=== PATIENT | male | born 1940 | race Caucasian/White ===

== ENCOUNTER 2017-06-03 13:20 | Inpatient (IN) | payer OTHER ==
[2017-06-03] MEDS ORDERED: PANTOPRAZOLE 40 MG INJ ONE (15:48)
[2017-06-03] MEDS ORDERED: ONDANSETRON 4 MG/2 ML VIAL ONE (15:48)
[2017-06-03 16:10] LABS: Potassium 3.2 mEq/L (3.6-5.0)
[2017-06-03 16:16] LABS: Albumin 3.8 g/dL (3.2-5.5); Bilirubin Direct 0.1 mg/dL (0-0.2); Bilirubin Total 0.4 mg/dL (0.3-1.2); Protein, Total 7.7 g/dL (6.0-8.3)
[2017-06-03 16:22] LABS: Absolute Lymphocytes (CBC) 1.6 K/uL (0.7-4.9); Absolute Monocytes 0.7 K/uL (0.1-1.3); Absolute Neutrophil 5.7 K/uL (1.8-8.0); Basophils % 0.4 % (0-1.3); MCH 26.8 pg (27.0-35.0); MCV 82.2 fL (80-100); MPV 8.3 fL (7.6-11.3); Monocytes % 8.5 % (3.3-12.3); RBC Red Blood Cell Count 4.13 M/uL (4.33-5.43)
--- NOTE | 2017-06-03 17:12 | RAD REPORT ---
EXAM DESCRIPTION: CT - Abdomen Pelvis W Contrast - 06/03/2017 4:59 pm CLINICAL HISTORY: Abd pain COMPARISON: CT study April 14, 2017 TECHNIQUE: Biphasic, helical CT imaging of the abdomen and pelvis was performed following 100 ml non -ionic IV contrast. No oral contrast administered. All CT scans are performed using dose optimization technique as appropriate and may include automated exposure control or mA/KV adjustment according to patient size. FINDINGS: No suspicious findings in the lung bases. The liver, spleen, and pancreas show no suspicious findings. Gallbladder is absent. No biliary tree d ilatation. Symmetric renal function is seen with no hydronephrosis or suspicious renal mass. No pyelonephritis o r acute renal finding. No acute bladder finding. No gastric dilatation or small bowel abnormality. Patient has severe nam diverticulosis. There is a t race amount of stranding adjacent to the tortuous ascending colon. This is suspicious for early diver ticulitis. No mass lesion. No free air, free fluid or other inflammatory stranding. No mass or bulky lymphadenopathy. Fat fille d left inguinal hernia present. Postsurgical changes are present from left inguinal hernia pain. No a drenal abnormality. No suspicious bony findings. IMPRESSION: Suspected early diverticulitis in the descending colon right mid abdomen. Extensive severe nam diverticulosis. The remainder the abdomen and pelvis, as detailed above, not substantially different from March.
--- NOTE | 2017-06-03 17:22 | ER ---
Nurse's Notes [facility] Name: Wicho Dudley Age: 76 yrs Sex: Male : 1940 Arrival Date: 06/03/2017 Time: 13:23 Bed 23 Private MD: Sumeet Fierro Diagnosis: Gastrointestinal hemorrhage, unspecified;Diverticulitis of intestine, part unspecified, without perforation or abscess with bleeding Presentation: 06/03 13:40 Presenting complaint: Patient states: Patient was hospitalized in [place] for ae1 diverticulitis, and he has rectal bleeding that started this morning. Transition of care: patient was not received from another setting of care. Onset of symptoms was June 03, 2017 at 06:00. 13:40 Method Of Arrival: Ambulatory ae1 13:45 Acuity: BRENDAN 3 ae1 17:49 Care prior to arrival: None. kr2 Triage Assessment: 13:45 General: Appears in no apparent distress. Behavior is calm, cooperative. Pain: Denies ae1 pain. Respiratory: Airway is patent. Historical: - Allergies: 13:44 No Known Allergies; ae1 - Home Meds: 17:51 Arixtra [Active]; kr2 - PMHx: 13:44 BPH; CVA; Depression; Hypertension; ae1 - PSHx: 13:44 Appendectomy; Cholecystectomy; Hernia repair; Tonsillectomy; ae1 - Immunization history:: Pneumococcal vaccine is up to date, Flu vaccine is up to date. - Social history:: Smoking status: Patient/guardian denies using tobacco. Screenin:19 Abuse screen: Denies threats or abuse. Denies injuries from another. Nutritional kr2 screening: No deficits noted. Tuberculosis screening: No symptoms or risk factors identified. Fall Risk IV access (20 points). Assessment: 16:19 General: Appears in no apparent distress. comfortable, well groomed, well developed, kr2 well nourished, Behavior is calm, cooperative, appropriate for age. Pain: Denies pain. Neuro: Level of Consciousness is awake, alert, obeys commands, Oriented to person, place, time, situation, Appropriate for age. Cardiovascular: Capillary refill < 3 seconds in bilateral fingers Patient's skin is warm and dry. Respiratory: Airway is patent Respiratory effort is even, unlabored, Respiratory pattern is regular, symmetrical, Breath sounds are clear bilaterally. GI: Abdomen is round non-distended, Bowel sounds present X 4 quads. Abd is soft X 4 quads Abdomen is tender to palpation X 4 quads. Reports bloody stool, nausea, vomiting. 16:19 Neuro: Reports dizziness. Cardiovascular: Reports fatigue. : No signs and/or symptoms kr2 were reported regarding the genitourinary system. EENT: Oral mucosa is moist. Derm: Skin is intact, is healthy with good turgor, Skin is pink, warm \T\ dry. Musculoskeletal: Circulation, motion, and sensation intact. 17:30 Reassessment: Patient appears in no apparent distress at this time. Patient and/or kr2 family updated on plan of care and expected duration. Pain level reassessed. Patient is alert, oriented x 3, equal unlabored respirations, skin warm/dry/pink. No episodes of bloody stool since arriving in ER. Patient denies pain at this time. 18:30 Reassessment: Patient appears in no apparent distress at this time. Patient and/or kr2 family updated on plan of care and expected duration. Pain level reassessed. Patient is alert, oriented x 3, equal unlabored respirations, skin warm/dry/pink. Patient denies pain at this time. 19:30 Reassessment: Patient appears in no apparent distress at this time. Patient and/or kr2 family updated on plan of care and expected duration. Pain level reassessed. Patient is alert, oriented x 3, equal unlabored respirations, skin warm/dry/pink. Patient denies pain at this time. 19:49 Reassessment: REPORT CALLED TO CINDI jo Vital Signs: 13:42 BP 123 / 84; Pulse 68; Resp 17; Temp 98(TE); Pulse Ox 98% on R/A; Weight 97.52 kg; ae1 Height 5 ft. 10 in. (177.80 cm); Pain 0/10; 14:59 BP 128 / 89; Pulse 72; Resp 18 S; Pulse Ox 99% on R/A; ae1 16:05 BP 117 / 74; Pulse 64; Resp 17; Pulse Ox 97% on R/A; mh5 16:47 BP 121 / 69; Pulse 63; Resp 19; Pulse Ox 97% on R/A; mh5 17:51 BP 155 / 89; Pulse 65; Resp 20; Pulse Ox 98% on R/A; kr2 18:52 BP 121 / 76; Pulse 67; Resp 17; Pulse Ox 100% on R/A; mh5 20:00 BP 115 / 75; Pulse 65; Resp 18; Pulse Ox 100% ; kr2 13:42 Body Mass Index 30.85 (97.52 kg, 177.80 cm) ae1 ED Course: 13:23 Patient arrived in ED. rg4 13:23 Sumeet Fierro DO is Private Physician. rg4 13:45 Triage completed. ae1 13:46 Arm band placed on right wrist. ae1 15:06 Dor[facility]-C [facility]. kb 15:06 Jose To MD is Attending Physician. kb 15:10 Bailey Gomes, ROMAN is Primary Nurse. kr2 15:19 Radiology exam delayed due to lab results not completed at this time. (BUN/Creatinine). kc3 16:04 Initial lab(s) drawn, by mt, sent to lab. Inserted saline lock: 22 gauge in right mh5 forearm, using aseptic technique. Blood collected. 16:04 Amylase, Serum Sent. 5 16:04 Basic Metabolic Panel Sent. 5 16:04 CBC with Diff Sent. 5 16:04 Creatinine for Radiology Sent. 5 16:04 Hepatic Function Sent. 5 16:05 Lipase Sent. 5 16:20 Patient has correct armband on for positive identification. Placed in gown. Bed in low kr2 position. Call light in reach. Side rails up X2. Adult w/ patient. monitoring analyst on. Pulse ox on. NIBP on. Door closed. Warm blanket given. Head of bed elevated. 16:[address] via stretcher. nj 16:54 CT completed. Patient tolerated procedure well. Patient moved back from CT. nj 16:59 CT Abd/Pelvis - W/Contrast In Process Unspecified. EDMS 17:21 Krystina Smith MD is Hospitalizing Provider. kb 20:01 No provider procedures requiring assistance completed. Patient admitted, IV remains in kr2 place. Administered Medications: 15:55 Drug: Zofran 4 mg Route: IVP; Site: right antecubital; kr2 16:15 Follow up: Response: No adverse reaction; Nausea is decreased kr2 15:55 Drug: ProTONIX 40 mg Route: IVP; Site: right antecubital; kr2 16:15 Follow up: Response: No adverse reaction kr2 17:34 Drug: Potassium Chloride 40 mEq Route: PO; kr2 18:30 Follow up: Response: No adverse reaction kr2 17:34 Drug: Flagyl 500 mg Volume: 100 ml; Route: IVPB; Rate: 200 ml/hr; Infused Over: 30 kr2 mins; Site: right antecubital; 18:29 Follow up: Response: No adverse reaction; IV Status: Completed infusion kr2 18:30 Drug: Cipro 400 mg Volume: 200 ml; Route: IVPB; Infused Over: 60 mins; Site: right kr2 antecubital; 19:58 Follow up: Response: No adverse reaction; IV Status: Completed infusion kr2 Outcome: 17:21 Decision to Hospitalize by Provider. kb 20:01 Admitted to Med/surg accompanied by tech, family with patient, via wheelchair, room kr2 412, with chart. 20:01 Condition: good 20:01 Patient left the ED. kr2 Signatures: Dispatcher [employer] EDMS Dorothea Onofre, TEE-C HTML WEB DEVELOPER-Tanja Ingram, RN RN bb Joselo Monterroso RN RN ae1 Grace Arcos rg4 Chadwick Johansen Maria 5 Bailey Gomes RN RN kr2 Codi Briscoe kc3 Corrections: (The following items were deleted from the chart) 17:48 16:19 GI: Abdomen is round non-distended, Bowel sounds present X 4 quads. Abd is soft X kr2 4 quads Abdomen is tender to palpation X 4 quads. kr2
--- NOTE | 2017-06-03 17:22 | EDPHYS ---
Physician Documentation [facility] Name: Wicho Dudley Age: 76 yrs Sex: Male : 1940 Arrival Date: 06/03/2017 Time: 13:23 Bed 23 Private MD: Sumeet Fierro ED Physician Jose To HPI: 06/03 15:18 This 76 yrs old Male presents to ER via Ambulatory with complaints of Rectal kb Bleeding. 15:18 The patient presents to the emergency department with rectal bleeding, a small amount, kb bright red blood with bowel movement, in a single episode. Onset: The symptoms/episode began/occurred this morning. Abdominal pain: none is appreciated. Modifying factors: The symptoms are alleviated by nothing, the symptoms are aggravated by nothing. Associated signs and symptoms: The patient has no apparent associated signs or symptoms. Severity of symptoms: At their worst the symptoms were mild moderate in the emergency department the symptoms are unchanged. The patient has experienced a previous episode, approximately 2 months ago. The patient has not recently seen a physician. Historical: - Allergies: 13:44 No Known Allergies; ae1 - Home Meds: 17:51 Arixtra [Active]; kr2 - PMHx: 13:44 BPH; CVA; Depression; Hypertension; ae1 - PSHx: 13:44 Appendectomy; Cholecystectomy; Hernia repair; Tonsillectomy; ae1 - Immunization history:: Pneumococcal vaccine is up to date, Flu vaccine is up to date. - Social history:: Smoking status: Patient/guardian denies using tobacco. ROS: 15:17 Constitutional: Negative for fever, chills, and weight loss, Cardiovascular: Negative kb for chest pain, palpitations, and edema, Respiratory: Negative for shortness of breath, cough, wheezing, and pleuritic chest pain, Back: Negative for injury and pain, : Negative for injury, bleeding, discharge, and swelling, MS/Extremity: Negative for injury and deformity, Skin: Negative for injury, rash, and discoloration, Neuro: Negative for headache, weakness, numbness, tingling, and seizure. 15:17 Abdomen/GI: Positive for nausea, vomiting, rectal bleeding, Negative for abdominal pain, diarrhea, constipation, abdominal cramps, abdominal distension, anorexia. Exam: 15:17 Constitutional: This is a well developed, well nourished patient who is awake, alert, kb and in no acute distress. Head/Face: Normocephalic, atraumatic. Chest/axilla: Normal chest wall appearance and motion. Nontender with no deformity. No lesions are appreciated. Cardiovascular: Regular rate and rhythm with a normal S1 and S2. No gallops, murmurs, or rubs. Normal PMI, no JVD. No pulse deficits. Respiratory: Lungs have equal breath sounds bilaterally, clear to auscultation and percussion. No rales, rhonchi or wheezes noted. No increased work of breathing, no retractions or nasal flaring. Skin: Warm, dry with normal turgor. Normal color with no rashes, no lesions, and no evidence of cellulitis. MS/ Extremity: Pulses equal, no cyanosis. Neurovascular intact. Full, normal range of motion. Neuro: Awake and alert, GCS 15, oriented to person, place, time, and situation. Cranial nerves II-XII grossly intact. Motor strength 5/5 in all extremities. Sensory grossly intact. Cerebellar exam normal. Normal gait. 15:17 Abdomen/GI: Inspection: distension, Bowel sounds: normal, in all quadrants, Palpation: abdomen is soft and non-tender, in all quadrants. 18:01 Abdomen/GI: Rectal exam: rectal tone normal, Stool: grossly bloody, guaiac positive, kb tenderness, the exam is chaperoned by an rv technician. Vital Signs: 13:42 BP 123 / 84; Pulse 68; Resp 17; Temp 98(TE); Pulse Ox 98% on R/A; Weight 97.52 kg; ae1 Height 5 ft. 10 in. (177.80 cm); Pain 0/10; 14:59 BP 128 / 89; Pulse 72; Resp 18 S; Pulse Ox 99% on R/A; ae1 16:05 BP 117 / 74; Pulse 64; Resp 17; Pulse Ox 97% on R/A; mh5 16:47 BP 121 / 69; Pulse 63; Resp 19; Pulse Ox 97% on R/A; mh5 17:51 BP 155 / 89; Pulse 65; Resp 20; Pulse Ox 98% on R/A; kr2 18:52 BP 121 / 76; Pulse 67; Resp 17; Pulse Ox 100% on R/A; mh5 20:00 BP 115 / 75; Pulse 65; Resp 18; Pulse Ox 100% ; kr2 13:42 Body Mass Index 30.85 (97.52 kg, 177.80 cm) ae1 MDM: 15:10 Patient medically screened. kb 15:18 Data reviewed: vital signs, nurses notes. Data interpreted: Pulse oximetry: on room air kb is 99 %. Interpretation: normal. 17:20 Counseling: I had a detailed discussion with the patient and/or guardian regarding: the kb historical points, exam findings, and any diagnostic results supporting the discharge/admit diagnosis, lab results, radiology results, the need for further work-up and treatment in the hospital. Physician consultation: Krystina Smith MD was contacted at 17:20, regarding admission, to the telemetry unit. patient's condition, and will see patient in ED, shortly. 06/03 15:16 Order name: Amylase, Serum; Complete Time: 16:24 kb 06/03 15:16 Order name: Basic Metabolic Panel; Complete Time: 16:24 kb 06/03 15:16 Order name: CBC with Diff; Complete Time: 16:51 kb 06/03 15:16 Order name: Creatinine for Radiology; Complete Time: 16:13 kb 06/03 15:16 Order name: Hepatic Function; Complete Time: 16:24 kb 06/03 15:16 Order name: Lipase; Complete Time: 16:24 kb 06/03 15:16 Order name: IV Saline Lock; Complete Time: 15:55 kb 06/03 15:16 Order name: CT Abd/Pelvis - W/Contrast; Complete Time: 17:17 kb 06/03 18:02 Order name: [place] kb 06/03 15:16 Order name: Labs collected and sent; Complete Time: 15:55 kb Administered Medications: 15:55 Drug: Zofran 4 mg Route: IVP; Site: right antecubital; kr2 16:15 Follow up: Response: No adverse reaction; Nausea is decreased kr2 15:55 Drug: ProTONIX 40 mg Route: IVP; Site: right antecubital; kr2 16:15 Follow up: Response: No adverse reaction kr2 17:34 Drug: Potassium Chloride 40 mEq Route: PO; kr2 18:30 Follow up: Response: No adverse reaction kr2 17:34 Drug: Flagyl 500 mg Volume: 100 ml; Route: IVPB; Rate: 200 ml/hr; Infused Over: 30 kr2 mins; Site: right antecubital; 18:29 Follow up: Response: No adverse reaction; IV Status: Completed infusion kr2 18:30 Drug: Cipro 400 mg Volume: 200 ml; Route: IVPB; Infused Over: 60 mins; Site: right kr2 antecubital; 19:58 Follow up: Response: No adverse reaction; IV Status: Completed infusion kr2 Disposition: 06/03/17 17:21 Hospitalization ordered by Krystina Smith for Inpatient Admission. Preliminary diagnosis are Gastrointestinal hemorrhage, unspecified, Diverticulitis of intestine, part unspecified, without perforation or abscess with bleeding. - Bed requested for Telemetry/MedSurg (Inpatient). - Status is Inpatient Admission. kr2 - Condition is Stable. - Problem is new. - Symptoms are unchanged. UTI on Admission? No Addendum: 06/07/2017 06:07 Co-signature as Attending Physician, Jose To MD Available for consultation at p s1 all times. . Signatures: Dispatcher [employer] EDMS Dorothea Onofre, OUTSIDE MAINTENANCE WORKER-C OUTSIDE MAINTENANCE WORKER-Claire Hargrove Andrea RN RN ae1 Bailey Gomes RN RN kr2 Jose To MD MD ps1
[2017-06-03] MEDS ORDERED: METRONIDAZOLE 500mg IVPB 500 MG/100 ML BAG IV ONE (17:24)
[2017-06-03] MEDS ORDERED: CIPROFLOXACIN 400mg IV 400 MG/200 ML BAG IV ONE (17:24)
[2017-06-03] MEDS ORDERED: POTASSIUM CL SA 10 MEQ TAB PO ONE (17:25)
[2017-06-03] MEDS ORDERED: ONDANSETRON 4 MG/2 ML VIAL IV PRN (17:28)
[2017-06-03] MEDS ORDERED: ACETAMINOPHEN 500 MG TAB PO PRN (17:28)
[2017-06-03] MEDS ORDERED: MORPHINE 4 MG/ML SYR IV PRN (17:28)
[2017-06-03] MEDS ORDERED: NA CHLORIDE 0.9% 250 ML IV SCH (18:00)
[2017-06-03 20:46] LABS: Hematocrit 34.6 % (39.6-49.0)
[2017-06-03] MEDS: PANTOPRAZOLE 40 MG INJ IVP SCH (21:00)
[2017-06-03] MEDS: D5 0.45 NS 1,000 ML IV SCH (21:11)
[2017-06-03 23:18] VITALS: BMI 30.8
[2017-06-04] MEDS: METRONIDAZOLE 500mg IVPB 500 MG/100 ML BAG IV SCH ×3 (00:58→17:00)
[2017-06-04 02:53] LABS: Hematocrit 30.8 % (39.6-49.0)
--- NOTE | 2017-06-04 04:42 | HP ---
Date of Admission: 06/03/2017 Code Status: Full. Chief Complaint: GI bleed. Consultants: Cuba Woodward M.D. with GI. Primary Care Physician: Dr. Fierro. History Of Present Illness: The patient is a 76-year-old male with past medical history of CVA with left-sided residual weakness, hypertension, abdominal aortic aneurysm, diverticulosis, who was in his usual state of health until day of admission when the patient had sudden onset of bright red blood per rectum. The patient recently was admitted to the hospital in March for similar symptoms. The patient was incidentally scheduled to have a colonoscopy on 06/05/2017; however, due to the GI bleed was instructed to proceed to the ER. The patient is on Arixtra for his history of CVA. The patient otherwise states that he is not on a stool softener. The patient denies any lightheadedness, dizziness, falls. The patient's symptoms are constant, moderate, progressively worsening. The patient came in. His workup revealed hypokalemia with a potassium of 3.2. His H and H were 11.[address] scan of the abdomen was done, which showed diverticulitis. The patient was started on some IV antibiotics, IV fluids and referred for admission. When seen in the ER , the patient was awake, alert, oriented x3, in some mild distress. Past Medical History: History of CVA with left-sided residual weakness, hypertension, history of AAA, diverticulosis, and history of diverticulitis. Past Surgical History: Cholecystectomy, left cataract removal, hernia repair on the right inguinal side. Allergies: NO KNOWN DRUG ALLERGIES. Medications: Reviewed. Social History: The patient denies any tobacco use, alcohol use, or illicit drug use. The patient is , has a son, mainly independent in his activities of daily living. Family History: Father had an HI, who at age of 69. Both brothers also of heart attack in their 60s. Review of Systems: An 11-point system reviewed, negative except as per HPI. Physical Examination: Vital Signs: Blood pressure 123/84, pulse 68, respirations 17, temperature 98, pulse ox 98% on room air. General: Awake, alert, oriented x3, in some mild distress. Elderly male. HEENT: Normocephalic, atraumatic. PERRLA. EOMI. Dry mucous membranes. Oropharynx is clear. Normal dentition. Conjunctivae are anicteric. Neck: Supple. No JVD. Trachea midline. CV: S1, S2. Regular rate and rhythm. No murmurs. Peripheral pulses are present bilaterally. Respiratory: Clear to auscultation bilaterally. No wheezing, stridor, or use of accessory muscles. Gastrointestinal: Abdomen is soft, distended. Bowel sounds are positive. Mild tenderness to palpation. No guarding or rigidity. Extremities: No clubbing, cyanosis, or edema. No calf tenderness. Neuro: Cranial nerves 2 through 12 intact grossly. The patient has some left- sided residual weakness. Speech is normal. Sensation intact to light touch. Skin: No rashes. Normal skin turgor. The patient does have very dry skin with some exfoliation on his lower extremities. Does have a dry venous ulcer on the right ankle. Psych: Mood is okay. Affect is full. Insight and judgment are good. Laboratory Data: Sodium 140, potassium 3.2, chloride 104, CO2 31, BUN 21, creatinine 1.10, glucose 113, calcium 9.2, amylase 51, lipase 18. WBC 8.8, H and H 11.1 and 34, platelets 304, neutrophils 65%. CT scan of the abdomen and pelvis shows suspect early diverticulitis in the descending colon, right mid abdomen, extensive severe diverticulosis. Remainder of the abdomen and pelvis as detailed above, not substantially different from March. Assessment And Plan: A 76-year-old male with, 1. Gastrointestinal bleed secondary to diverticulitis. We will monitor serial H and H. Dr. Woodward has been consulted. Hold blood thinners. We will continue on IV PPI and IV fluids. Clear liquids for now. 2. Acute diverticulitis. We will continue on Cipro and Flagyl. GI has been consulted. 3. Obesity. 4. Essential hypertension. Hold blood pressure medications for now. We will continue to monitor closely. 5. History of cerebrovascular accident with left-sided weakness, stable. We will hold Arixtra due to GI bleed. 6. History of abdominal aortic aneurysm. CT scan did not comment on size of AAA, previously was 3.4 cm. The patient follows with Cardiology on a regular basis for monitoring. 7. Hypokalemia. We will replace and monitor. 8. We will admit to Med-Surg, place as inpatient with remote cardiac telemetry. No living will or medical power professional builder /PRETTY Voice ID: [id number] ADRYAN
[2017-06-04 04:58] LABS: Absolute Lymphocytes (CBC) 1.7 K/uL (0.7-4.9); Absolute Monocytes 0.7 K/uL (0.1-1.3); Absolute Neutrophil 4.4 K/uL (1.8-8.0); Basophils % 0.5 % (0-1.3); Eosinophils % 9.6 % (0-4.4); Hematocrit 31.6 % (39.6-49.0); Lymphocytes % 21.9 % (15.3-44.8); MCH 27.5 pg (27.0-35.0); MCV 81.8 fL (80-100); MPV 8.3 fL (7.6-11.3); Monocytes % 9.4 % (3.3-12.3); RBC Red Blood Cell Count 3.87 M/uL (4.33-5.43)
[2017-06-04 05:07] LABS: Potassium 3.7 mEq/L (3.6-5.0)
[2017-06-04] MEDS: D5 0.45 NS 1,000 ML IV SCH ×2 (05:10→14:00)
[2017-06-04] MEDS ORDERED: CIPROFLOXACIN 400mg IV 400 MG/200 ML BAG IV SCH (09:00)
[2017-06-04] MEDS ORDERED: SODIUM CHLORIDE 0.9% 10ML INJ IV SCH (09:00)
[2017-06-04] MEDS: PANTOPRAZOLE 40 MG INJ IVP SCH (09:32)
[2017-06-04 10:45] VITALS: O2SAT 97
[2017-06-04] MEDS ORDERED: POTASSIUM CL SA 10 MEQ TAB PO ONE (12:00)
[2017-06-04 17:02] VITALS: BP 112/66; TEMP 97.6
--- NOTE | 2017-06-04 18:34 | CON ---
Date of Consultation: 06/04/2017 Reason For Consultation: GI bleeding. History Of Present Illness: The patient is a 76-year-old gentleman with past history of CVA. He has been on anti-platelet medication as a result of that. He cannot apparently stop this. He was suppo sed to have a colonoscopy for past GI bleeding, however, again presented with bright red blood. CT s can shows that he might have left-sided diverticulitis. The patient denies any abdominal pain. Singh es any hematemesis, melena, or hematochezia. Since coming to the hospital, his bleeding has stopped. Denies any weakness, dizziness, eager to go home. Past Medical History, Past Surgical History, Family History, Social History, Psychiatric History: Un changed. Review of Systems: Other than above unchanged. Physical Examination: General: Elderly male, at this time. No other acute distress noted. Hemodynamic respiratory profil e within normal range. HEENT: Atraumatic, normocephalic. Hemodynamic respiratory profile within normal range. Anicteric. Neck: Supple. No lymphadenopathy. Trachea central in position. Chest: Clear to auscultation and percussion. Cardiovascular: Normal S1, S2. No S3, no S4. Abdomen: Soft, nontender, nondistended. Excellent bowel sounds present in all quadrants. No hepato megaly. No splenomegaly. Neurologic: Alert and oriented x3. Intact memory, mentation, and judgment. Can move all parts of e xtremities without any other problem. No asterixis. No flapping tremor. Diagnostic Data: Reviewed and analyzed. CT scan as above. Hemoglobin and hematocrit 11/34 respecti vely. Impression, Plan, Recommendations: Mr. Dudley is a 76-year-old gentleman with recurrent gastrointes tinal bleeding, probably diverticular bleeding. However diverticulitis is also possibility, treat it with antibiotic. He is eager to go home if otherwise stable. Since his bleeding is stopped barring other situation, further treatment could be done on an outpatient basis. However I have stated to t he patient that if he has recurrent bleeding, he is to stay in the hospital. Again after the course of antibiotic, outpatient colonoscopy will be arranged. I have had a long discussion with the patien t regarding the indications, contraindications, possible complications, alternatives, he has good und erstanding, he is agreeable. NMM/MODL Voice ID: [id number] Report ID: [id number]
--- NOTE | 2017-06-04 21:49 | PN ---
Date of Progress Note: 06/04/2017 Subjective: The patient is seen and examined, chart reviewed, and case discussed with RN and GI. Th e patient is doing well. Denies any further bleeding overnight. Review of Systems: Negative except as above. Medications: Reviewed. Physical Examination: Vital Signs: Temperature 97.8, heart rate 56, blood pressure 111/67, respirations 18, and O2 of 91% on room air. General: Awake, alert, and oriented x3. No acute distress. Elderly male, somewhat ill-appearing, o bese, BMI 30. CV: S1, S2. No murmurs. Peripheral pulses present. Regular rate and rhythm. Respiratory: Moving air well bilaterally. No wheezing. Abdomen: Soft, nontender, nondistended. Positive bowel sounds. Extremities: No clubbing or cyanosis. The patient does have some trace peripheral edema. Neurologic: Nonfocal. Skin: The patient has a healed venous ulcer on the lower extremity. Laboratory Data: Sodium 140, potassium 3.7, chloride 103, CO2 of 32, BUN 18, creatinine 1.06, glucos e 120, and calcium 8.7. WBC 7.6, H and H 10.6 and 31.6, platelets 268, and neutrophils 58%. Stool o ccult blood is positive. Assessment And Plan: A 76-year-old male with; 1.Gastrointestinal bleed secondary to diverticulitis. We will continue to monitor H and H. It has been stable. Hold blood thinners. Continue IV fluids. GI has been consulted. 2.Acute diverticulitis. Continue Cipro, Flagyl, and clear liquids. 3.Obesity. Body mass index of 30. 4.Essential hypertension. Resume home medications as appropriate. 5.History of cerebrovascular accident with left-sided weakness. We will hold Arixtra due to gastroi ntestinal bleed. 6.History of abdominal aortic aneurysm. The patient will need repeat imaging in 4 to 6 months. Fol lows up with Cardiology as an outpatient. 7.Hypokalemia, replaced. We will continue to monitor. 8.Gastrointestinal and deep venous thrombosis prophylaxis with PPI and SCDs. Plan to follow up with GI recommendations. /PRETTY Voice ID: [id number] Report ID: [id number]
[2017-06-05] MEDS ORDERED: FINASTERIDE 5 MG TAB PO SCH (09:00)
[2017-06-05] MEDS ORDERED: CHLORTHALIDONE 25 MG TAB PO SCH (09:00)
--- NOTE | 2017-06-06 12:36 | DS ---
Date of Discharge: 06/04/2017 Family Life Counselor: Dr. Guy with GI. Admitting Diagnoses: 1.Acute diverticulitis. 2.Gastrointestinal bleed. 3.Obesity. 4.History of hypertension. 5.History of cerebrovascular accident with left-sided weakness. 6.History of abdominal aortic aneurysm. 7.Hypokalemia. Discharge Diagnoses: 1.Acute diverticulitis, improved with antibiotics. 2.Gastrointestinal bleed, improved, likely secondary to diverticulitis and in the context of anticoa gulation with Arixtra. 3.History of cerebrovascular accident with left-sided weakness. The patient has been told by his ne urologist in [place] that is "that is the only thing keeping him alive." The patient is reluctant to withhold his Arixtra. He understands that there is a risk of recurrent bleeding with Arixtra. He i s instructed to follow up with his neurologist to re-evaluate anticoagulation. 4.Essential hypertension, stable. 5.Obesity, BMI 30. 6.History of abdominal aortic aneurysm. Last known measurement is 3.4 cm. The patient follows up w [facility] on a regular basis for continued monitoring. 7.Hypokalemia, replaced and corrected. Hospital Course: The patient is a 76-year-old male who was admitted to the hospital with GI bleed se condary to diverticulitis. The patient was started on IV fluids. Kept on a clear liquid diet, and I V antibiotics were initiated. The patient's hemoglobin was monitored and remained stable, did drop f rom 11.1-10.6. He had no further bleeding. He was able to tolerate his diet. GI was consulted, Dr. Guy, who had been planning on doing a colonoscopy on him this week. However, will be delayed for t he next couple weeks once his inflammation improves. The patient did have some hypokalemia, which wa s corrected. His white count remained normal. He was not septic. His vital signs were stable. The patient was seen by Dr. Guy to have followup as an outpatient for a colonoscopy. The patient was t hen cleared for discharge and was sent home in a stable condition instructed to return to the ER if a ny bleeding recurs. Followup: Follow up with primary care physician in 2-3 days. Follow up with GI, Dr. Guy in 2 weeks for colonoscopy. Follow up with neurologist in [place] in 2 weeks regarding discussion for anticoag ulation in context of recurrent GI bleed. Diet: Heart healthy. Activity: Fall precautions. Medications: As per medication reconciliation list. Finish off the course of Cipro and Flagyl. Total time spent discharging patient was 37 minutes. For physical exam findings, please see the progress note dictated on the day of discharge. /PRETTY Voice ID: [id number] Report ID: [id number]
[2017-06-07] MEDS ORDERED: VENLAFAXINE HCL XR 37.5MG CAP PO SCH (09:00)
== END 2017-06-04 19:04 | disposition home or self-care (01) | DRG 378 ==
LOC: ER 13:20 → ERHOLD 17:22 → 4TH 19:13
PROVIDERS: ADMIT Family Medicine; ATTEND Family Medicine
DX: K57.33 Diverticulitis of large intestine without perforation or abscess with bleeding (principal); I69.354 Hemiplegia and hemiparesis following cerebral infarction affecting left non-dominant side; I10 Essential (primary) hypertension; E87.6 Hypokalemia; Z86.79 Personal history of other diseases of the circulatory system; E66.9 Obesity, unspecified; Z68.30 Body mass index [BMI] 30.0-30.9, adult
CPT/HCPCS: 36415; 74177; 80048; 80076; 82150; 82272; 83690; 85014; 85018; 85025; 86850; 86900; 86901; 94760; 96365; 96367; 96375; 99285; C9113; J0744; J2405; Q9967

== ENCOUNTER 2018-07-14 12:13 | Inpatient (IN) | payer OTHER ==
--- OUTSIDE RECORDS SUMMARY | 2018-07-14 12:25 | XMS REPORT | Continuity of Care Document ---
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 - bleed [facility] [place] Gastrointestinal Active Finding 06/05/[address] [facility] - hemorrhage [facility] [place] Anemia Active Finding 06/05/[address] [facility] - [facility] [place] Hematochezia Active Finding 06/05/[address] [facility] - [facility] [place] CVA Active [address] STROKE Active [address], Rehabilitation ACUTE CVA(NEURO IM Active [facility] 08) 014 [facility] Stroke Resolved Problem 05/14/[address] Hypertension Resolved Problem 05/14/2018 [facility] Migraine Resolved Problem 05/14/2018 [facility] PVD (<span Resolved Problem 05/14/2018 [place] ID="[id number]">[facility] onfirmed</span>) Final: 03/16/2014 [facility] Depression Resolved Problem 05/14/2018 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 Chronic kidney 05/14/2018 [facility] disease, stage 3 Medical Center Obesity, 05/14/2018 [facility] unspecified Medical Center Benign prostatic 05/14/2018 [facility] hyperplasia [facility] without lower urinary tract symptoms Personal history 05/14/2018 [facility] [place] [facility] pulmonary [facility] embolism Hypertensive 05/14/2018 [facility] chronic kidney [facility] disease with stage 1 through stage 4 chronic kidney disease, or unspecified chronic kidney 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 05/14/2018 [facility] anticoagulants Medical Center Body mass index 05/14/2018 [facility] 33.0-33.9, adult Medical Center Coma scale, best 05/14/2018 [facility] motor response, [facility] obeys commands, at arrival to emergency department Coma scale, eyes 05/14/2018 [facility] open, spontaneous, Medical Center at arrival to emergency department Coma scale, best 05/14/2018 [facility] verbal response, [facility] oriented, at arrival to emergency department AAA Active Finding 06/05/[address] [facility] [place] Acute GI bleeding Resolved Finding 06/05/[address] [facility] [place] HTN Active Finding 06/05/[address] [facility] [place] CVA Active Finding 06/05/[address] [facility] [place] ADMINISTRTVE Active [facility] CVA Active Rehabilitation, [facility] CEREB INFRC D/T Active [facility] UNSP OCCLS OR Medical Center STENOS OF Medications Medication Details Route Status Patient Ordering Order Source Instructions Provider Date clopidogrel 75 75 mg=1 tab, PO, Active [facility] mg oral tablet Daily, # 30 tab, 2017 Medical 3 Refill(s), Center Pharmacy: [facility] 482 topiramate 25 25 mg=1 tab, PO, Active [facility] mg oral tablet Daily, # 30 tab, 2017 Medical 2 Refill(s), Center Pharmacy: [facility] 482 topiramate 25 mg, 1 tab, Inactive [facility] Route: PO, Drug 2017 Medical form: TAB, Center Daily, Dosing Weight 104.545, kg, Start date: 10/25/17 9:00:00 CDT, Duration: 30 day, Stop date: 11/23/17 9:00:00 CDTNotes: (Same As: Topamax) "Do Not Crush" Plavix 75 mg, Route: No Longer Maria Alejandra PO, Drug form: Active 2018 Medical TAB, Daily, Center Dosing Weight 104.545, kg, Start date: 10/25/17 9:00:00 CDT, Duration: 30 day, Stop date: 11/23/17 9:00:00 CDT Valproic Acid 500 mg, 5 mL, Inactive [place] 100 MG/ML Route: IVPB, 2018 Medical Injectable ONCE, Dosing Center Solution Weight 104.545, kg, Start date: 10/24/17 15:46:00 CDT, Stop date: 10/24/17 15:46:00 CDTNotes: Dilute in at least 50ml D5W or NS. Infusion rate=20 mg/min (Same As: Depacon) Magnesium 2 gm, 50 mL, Inactive [place] Sulfate Route: IVPB, 2017 Medical Drug form: INJ, Center ONCE, Dosing Weight 104.545, kg, Total dose=2 gm, Start date: 10/24/17 15:46:00 CDT, Stop date: 10/24/17 15:46:00 CDTNotes: WASTE: F/P - Sink; E - Municipal Trash Bin NS (Bolus) IV 500 mL, 500 Inactive [place] ml/hr, Infuse 2018 Medical Over: 1 hr, Center Route: IV, 500, Drug form: INJ, ONCE, Priority: STAT, Dosing Weight 104.545 kg, Start date: 10/24/17 15:46:00 CDT, Stop date: 10/24/17 15:46:00 CDT Plavix 75 mg, 1 tab, No Longer Maria Alejandra Route: PO, Drug Active 2017 Medical form: TAB, Center Daily, Dosing Weight 104.545, kg, Priority: NOW, Start date: 10/24/17 14:40:00 CDT, Duration: 30 day, Stop date: 11/23/17 9:00:00 CDTNotes: (Same As: Plavix) Saline Flush 10 ml, Route: No Longer [place] 0.9% IVP, Drug Form: Active 2018 Medical INJ, Dosing Center Weight 104.545, kg, Q12H, Start date: 10/24/17 9:00:00 CDT, Duration: 30 day, Stop date: 11/22/17 21:00:00 CDTNotes: (Same as: BD Posiflush) Docusate 100 mg, 1 cap, No Longer [place] Route: PO, Drug Active 2018 Medical form: CAP, Q12H, Center Dosing Weight 104.545, kg, Start date: 10/24/17 9:00:00 CDT, Duration: 30 day, Stop date: 11/22/17 21:00:00 CDTNotes: (Same as: Colace) (Do Not Crush) Potassium 40 mEq, 30 mL, Inactive [place] Chloride 1.33 Route: PO, Drug 2018 Medical MEQ/ML Oral form: LIQ, Center Solution Daily, Dosing Weight 104.545, kg, Start date: 10/24/17 9:00:00 CDT, Duration: 30 day, Stop date: 11/22/17 9:00:00 CDT fondaparinux 7.5 mg, 0.6 mL, No Longer [place] Route: SUB-Q, Active 2017 Medical Drug form: SOLN, Center Daily, Dosing Weight 104.545, kg, Start date: 10/24/17 9:00:00 CDT, Duration: 30 day, Stop date: 11/22/17 9:00:00 CDTNotes: (Same as Arixtra) Passthrough med Spironolactone 25 mg, 1 tab, No Longer [place] Route: PO, Drug Active 2018 Medical form: TAB, Center Daily, Dosing Weight 104.545, kg, Start date: 10/24/17 9:00:00 CDT, Duration: 30 day, Stop date: 11/22/17 9:00:00 CDTNotes: (Same As: Aldactone) venlafaxine 37.5 mg, 1 cap, Inactive [place] Route: PO, Drug 2018 Medical form: ERCAP, Center Every Other Day, Dosing Weight 104.545, kg, Start date: 10/24/17 9:00:00 CDT, Duration: 30 day, Stop date: 11/21/17 9:00:00 CDTNotes: Do not open, crush, or chew. (Same As: Effexor XR) Finasteride 5 mg, 1 tab, No Longer [place] Route: PO, Drug Active 2018 Medical form: TAB, Center Daily, Dosing Weight 104.545, kg, Start date: 10/24/17 9:00:00 CDT, Duration: 30 day, Stop date: 11/22/17 9:00:00 CDTNotes: (Same as: Proscar) "Do Not Crush" Women of childbearing age should not touch or handle broken tablets Potassium 40 mEq, 30 mL, Inactive [place] Chloride 1.33 Route: PO, Drug 2018 Medical MEQ/ML Oral form: LIQ, ONCE, Center Solution Dosing Weight 104.545, kg, Start date: 10/24/17 8:41:00 CDT, Stop date: 10/24/17 8:41:00 CDTNotes: (Same as: Potassium Chloride) heparin 5,000 unit, 1 Inactive [place] mL, Route: 2018 Medical SUB-Q, Drug Center form: INJ, Q8H, Dosing Weight 104.545, kg, (For patients weighing Notes: porcine heparin tramadol 50 mg=1 tab, PO, Active [place] hydrochloride Q8H, PRN Pain, # 2018 Medical 50 MG Oral 60 tab, 0 Center Tablet Refill(s) Chlorthalidone 25 mg=1 tab, PO, Active [place] 25 MG Oral Daily, # 90 tab, 2018 Medical Tablet 1 Refill(s) Center finasteride 5 5 mg=1 tab, PO, Active [place] mg oral tablet Daily, # 90 tab, 2018 Medical 1 Refill(s) Center benzonatate 100 100 mg=1 cap, Active [place] mg oral capsule PO, TID, PRN 2018 Medical cough, do not Center crush or chew, # 30 cap, 0 Refill(s) fondaparinux 7.5 mg=0.6 ml, Active [place] 7.5 mg/0.6 mL SUB-Q, Daily, # 2018 Medical subcutaneous 3 ml, 0 Center solution Refill(s) venlafaxine 37.5 mg=1 cap, No Longer [facility] 37.5 mg oral PO, Daily, # 90 Active 2018 Medical capsule, cap, 0 Refill(s) [place] extended release spironolactone 25 mg=1 tab, PO, Active [place] 25 mg oral Daily, # 90 tab, 2018 Medical tablet 1 Refill(s) Center Zofran 4 mg, 2 mL, Inactive [place] Route: IVP, Drug 2018 Medical form: INJ, ONCE, Center Dosing Weight 104.545, kg, Priority: STAT, Start date: 10/24/17 3:10:00 CDT, Stop date: 10/24/17 3:10:00 CDTNotes: (Same as: Zofran) MEDICATION WASTE Product Size: 4 mg Product Wasted: ___ mg Saline Flush 10 ml, Route: No Longer [place] 0.9% IVP, Drug Form: Active 2018 Medical INJ, Dosing Center Weight 104.545, kg, PRN, PRN Line Flush, Start date: 10/24/17 3:01:00 CDT, Duration: 30 day, Stop date: 11/23/17 3:00:00 CDTNotes: (Same as: BD Posiflush) Tylenol 975 mg, 3 tab, Inactive [place] Route: PO, Drug 2017 Medical form: TAB, ONCE, Center Dosing Weight 104.545, kg, Priority: STAT, Start date: 10/23/17 19:49:00 CDT, Stop date: 10/23/17 19:49:00 CDTNotes: Do not exceed 4 gm/day. (Same as: Tylenol) Benadryl 25 mg, Route: Inactive [facility] IVP, ONCE, 2018 Medical Dosing Weight Center 104.545, kg, Priority: STAT, Start date: 10/23/17 17:42:00 CDT, Stop date: 10/23/17 17:42:00 CDT Reglan 10 mg, Route: Inactive [facility] IVP, Drug form: 2018 Medical INJ, ONCE, Center Dosing Weight 104.545, kg, Priority: STAT, Start date: 10/23/17 17:42:00 CDT, Stop date: 10/23/17 17:42:00 CDT Ciprofloxacin TWICE DAILY Active [facility] [place] Metronidazole Q8H Active [facility] St[facility] 2018 [facility] [place] Fondaparinux DAILY Active St[facility] Sodium 2018 [facility] [place] Venlafaxine Hcl As Directed Active [facility] St. *Xr* 2018 [facility] [place] Fondaparinux DAILY Active [facility] St[facility] Sodium 2018 [facility] [place] Chlorthalidone DAILY Active [facility] St[facility] 2017 [facility] [place] Finasteride DAILY Active [facility] St. 2018 [facility] [place] rosuvastatin 40 40 mg=1 tab, PO, Active [place] mg oral tablet Bedtime, # 90 2015 Medical tab, 0 Refill(s) Center fondaparinux 7.5 mg=0.6 ml, Active [place] 7.5 mg/0.6 mL SUB-Q, Daily, # 2015 Medical subcutaneous 18 mL, 1 Center solution Refill(s) venlafaxine 37.5 mg=1 cap, Active [place] 37.5 mg oral PO, Daily, # 30 2015 Medical capsule, cap, 0 Refill(s) Center extended release 0.6 ML 7.5 mg=0.6 ml, Active [facility] Fondaparinux SUB-Q, Daily, # 2015 Medical sodium 12.5 54 mL, 1 Center MG/ML Prefilled Refill(s) Syringe [Arixtra] Arixtra 7.5 mg, 0.6 mL, Inactive [facility] Route: SUB-Q, 2014 Medical Drug form: SOLN, [place] Q24H, Dosing Weight 104.545, kg, Start date: 03/14/14 9:13:00, Duration: 30 day, Stop date: 04/12/14 9:13:00Notes: (Same as Arixtra) Non-Formulary Drug Passthrough med venlafaxine 37.5 mg, 1 cap, Inactive [facility] Route: PO, Drug 2014 Medical form: ERCAP, Center Daily, Dosing Weight 104.545, kg, Start date: 03/14/14 9:00:00, Duration: 30 day, Stop date: 04/12/14 9:00:00Notes: Do not open, crush, or chew. (Same As: Effexor XR) Neutra-Phos 2 pkt, Route: Inactive [place] PO, Drug Form: 2014 Medical PDR/REC, Dosing Center Weight 104.545, kg, ONCE, Start date: 03/14/14 6:45:00, Stop date: 03/14/14 6:45:00Notes: (Same as: Neutra-Phos) Each 1.25 gm pkt has 250mg phosphorous. Mix w/2.5oz water and stir. Acetaminophen 650 mg, 2 tab, Inactive [place] Route: PO, Drug 2014 Medical form: TAB, Q6H, Center Dosing Weight 104.545, kg, PRN Pain Score 1-3, Start date: 03/14/14 4:41:00, Duration: 30 day, Stop date: 04/13/14 4:40:00Notes: Do not exceed 4 gm/day. (Same as: Tylenol) Lactated 1,000 mL, Rate: No Longer [facility] Ringers IV 75 ml/hr, Infuse Active [address] [place] [address] 1,000 mL over: 13.3 hr, Center Route: IV, Dosing Weight 104.545 kg, Total Volume: 1,000, Start date: 03/13/14 13:00:00, Duration: 30 day, Stop date: 04/12/14 12:59:00 warfarin 10 mg 0 Refill(s) No Longer [facility] oral tablet Active [address] [place] [address] warfarin 7.5 mg 0 Refill(s) No Longer [facility] oral tablet Active [address] [place] [address] Warfarin 0 Refill(s) No Longer [facility] Active [address] [place] [address] Saline Flush 10 ml, Route: No Longer [facility] 0.9% IVP, Drug Form: Active 2014 Medical INJ, Dosing Center Weight 104.545, kg, Q12H, Start date: 03/13/14 9:00:00, Duration: 30 day, Stop date: 04/11/14 21:00:00Notes: (Same as: BD Posiflush) Saline Flush 10 ml, Route: No Longer Maria Alejandra 0.9% IVP, Drug Form: Active 2014 Medical INJ, Dosing Center Weight 104.545, kg, PRN, PRN Line Flush, Start date: 03/12/14 22:21:00, Duration: 30 day, Stop date: 04/11/14 22:20:00Notes: (Same as: BD Posiflush) Labetalol 10 mg, 2 mL, No Longer Maria Alejandra Route: IVP, Drug Active 2014 Medical form: INJ, Center Q10Min, Dosing Weight 104.545, kg, PRN Hypertension, Start date: 03/12/14 22:21:00, Duration: 30 day, Stop date: 04/11/14 22:20:00, For SBP > 180mmHg and/or DBP > 105mmHg Coumadin 7.5 mg, 1 tab, No Longer Maria Alejandra Route: PO, Drug Active 2014 Medical form: TAB, ONCE, Center Dosing Weight 104.545, kg, Start date: 03/12/14 22:16:00, Stop date: 03/12/14 22:16:00Notes: Nurse to ensure documentation of patient education per anticoagulation policy. Avoid large intake of vitamin-K containing foods diet. (Same As: Coumadin) Lovenox 100 mg, 1 mL, No Longer Maria Alejandra Route: SUB-Q, Active 2014 Medical Drug form: INJ, Center ONCE, Dosing Weight 104.545, kg, Priority: STAT, Start date: 03/12/14 22:12:00, Stop date: 03/12/14 22:12:00Notes: Nurse to ensure documentation of patient education per anticoagulation policy. (Same as: Lovenox) Iohexol 85 mL, Route: Inactive Maria Alejandra IVP, Drug Form: 2014 Medical SOLN, Dosing Center Weight 104.545, kg, ONCALL, STAT, Start date: 03/12/14 18:26:00, Duration: 1 doses or times, Dose=2.2ml/kg, Max blko=125no -- "To be infused by Radiology Staff ONLY"Special Instructions: Dose=2.2ml/kg, Max fjlc=304um -- "To be infused by Radiology Staff ONLY" fondaparinux 7.5 mg=0.6 mL, Active [facility] 7.5 mg/0.6 mL SUB-Q, Q24H, # 2014 Medical subcutaneous 10 mL, 1 Center solution Refill(s) venlafaxine 37.5 mg=1 cap, Active [facility] 37.5 mg oral PO, Daily, # 30 2014 Medical capsule, cap, 0 Refill(s) Center extended release losartan 25 mg 12.5 mg=0.5 tab, Active [facility] oral tablet PO, Daily, # 30 2014 Medical tab, 0 Refill(s) Center Finasteride 5 5 mg=1 tab, PO, Active [facility] MG Oral Tablet Daily, # 30 tab, 2014 Medical [Proscar] 0 Refill(s) Center Potassium 20 mEq=1 tab, Active [facility] Chloride 20 MEQ PO, Daily, # 30 2014 Medical Extended tab, 0 Refill(s) Center Release Tablet tamsulosin 0.4 0.4 mg=1 cap, Active [facility] mg oral capsule PO, After 2013 Medical Dinner, # 30 Center cap, 0 Refill(s) temazepam 15 mg 15 mg=1 cap, PO, Active [facility] oral capsule Bedtime, 2014 Medical Insomnia, # 30 Center cap, 0 Refill(s) ciprofloxacin 250 mg=1 tab, Active [facility] 250 mg oral PO, Q12H, # 4 2014 Medical tablet tab, 0 Refill(s) Center Flomax 0.4 mg, 1 cap, No Longer [facility] Route: PO, Drug Active 2013 Medical form: CAP, After Center Dinner, Dosing Weight 175, kg, Start date: 10/18/13 17:00:00, Duration: 30 day, Stop date: 11/16/13 17:00:00Notes: (Same As: Flomax) "Do Not Crush" warfarin 7.5 mg 7.5 mg=1 tab, No Longer [facility] oral tablet PO, Daily, # 30 Active 2014 Medical tab, 0 Refill(s) Center Ciprofloxacin 250 mg, 1 tab, No Longer [place] Route: PO, Drug Active 2013 Medical form: TAB, Q12H, Center Dosing Weight 175, kg, Start date: 10/15/13 13:00:00, Stop date: 10/22/13 9:00:00Notes: May interfere w/enteral feedings - Take 1 hr before or 2 hrs after antacids, dairy pdt & minerals. On empty stomach. Potassium 20 mEq, 1 tab, No Longer [place] Chloride Route: PO, Drug Active 2013 Medical form: ERTAB, Center Daily, Dosing Weight 100, kg, Start date: 10/15/13 9:00:00, Duration: 30 day, Stop date: 11/13/13 9:00:00Notes: (Same as: K-Dur 20) "Do Not Crush" With food and full glass of water Losartan 12.5 mg, 0.5 No Longer [place] tab, Route: PO, Active 2013 Medical Drug form: TAB, Center Daily, Dosing Weight 100, kg, Start date: 10/15/13 9:00:00, Stop date: 11/13/13 9:00:00Notes: (Same as: Romi) Effexor XR 37.5 mg, 1 cap, No Longer [facility] Route: PO, Drug Active 2013 Medical form: ERCAP, Center Daily, Dosing Weight 100, kg, Start date: 10/15/13 9:00:00, Duration: 30 day, Stop date: 11/13/13 9:00:00Notes: Do not open, crush, or chew. (Same As: Effexor XR) Finasteride 5 mg, 1 tab, No Longer [facility] Route: PO, Drug Active 2013 Medical form: TAB, Center Daily, Dosing Weight 100, kg, Start date: 10/15/13 9:00:00, Duration: 30 day, Stop date: 11/13/13 9:00:00Notes: (Same as: Proscar) "Do Not Crush" Saline Flush 5 ml, Route: No Longer [place] 0.9% IVP, Drug Form: Active 2013 Medical INJ, Dosing Center Weight 100, kg, Q12H, Start date: 10/14/13 21:00:00, Duration: 30 day, Stop date: 11/13/13 9:00:00Notes: (Same as: BD Posiflush) Docusate 100 mg, 1 cap, No Longer [place] Route: PO, Drug Active 2013 Medical form: CAP, Q12H, Center Dosing Weight 100, kg, Start date: 10/14/13 21:00:00, Duration: 30 day, Stop date: 11/13/13 9:00:00Notes: (Same as: Colace) (Do Not Crush) Arixtra 7.5 mg, 0.6 mL, No Longer [place] Route: SUB-Q, Active 2013 Medical Drug form: SOLN, Center QPM, Dosing Weight 100, kg, Start date: 10/14/13 15:13:00, Duration: 30 day, Stop date: 11/13/13 15:00:00Notes: (Same as Arixtra) Non-Formulary Drug Passthrough med Saline Flush 5 ml, Route: No Longer [place] 0.9% IVP, Drug Form: Active 2013 Medical INJ, Dosing Center Weight 100, kg, PRN, PRN Line Flush, Start date: 10/14/13 15:12:00, Duration: 30 day, Stop date: 11/13/13 15:11:00Notes: (Same as: BD Posiflush) Temazepam 15 mg, 1 cap, No Longer [place] Route: PO, Drug Active 2013 Medical form: CAP, Center Bedtime, Dosing Weight 100, kg, PRN Insomnia, Start date: 10/14/13 15:12:00, Duration: 30 day, Stop date: 11/13/13 15:11:00Notes: (Same As: Restoril) Bisacodyl 10 mg, 1 supp, No Longer [place] Route: RI, Drug Active 2013 Medical form: SUPP, Center Bedtime, Dosing Weight 100, kg, PRN Constipation, Start date: 10/14/13 15:12:00, Duration: 30 day, Stop date: 11/13/13 15:11:00Notes: (Same As: Dulcolax, [place]-Lax) Ondansetron 4 mg, 2 mL, No Longer [place] Route: IVP, Drug Active 2013 Medical form: INJ, Q8H, Center Dosing Weight 100, kg, PRN Nausea & Vomiting, Start date: 10/14/13 15:12:00, Duration: 30 day, Stop date: 11/13/13 15:11:00Notes: (Same as: Zofran) Milk of 30 mL, Route: No Longer [facility] Magnesia PO, Drug Form: Active 2013 Medical SUSP, Dosing Center Weight 100, kg, Daily, PRN Constipation, Start date: 10/14/13 15:12:00, Duration: 30 day, Stop date: 11/13/13 15:11:00Notes: (Same as: Milk of Magnesia, MOM) Acetaminophen 650 mg, 2 tab, No Longer [facility] Route: PO, Drug Active 2013 Medical form: TAB, Q4H, Center Dosing Weight 100, kg, PRN Pain Score 1-3, Start date: 10/14/13 15:12:00, Duration: 30 day, Stop date: 11/13/13 15:11:00Notes: Do not exceed 4 gm/day. (Same as: Tylenol) Ciprofloxacin 500 mg, 1 tab, Inactive [place] Route: PO, Drug 2013 Medical form: TAB, Q12H, Center Dosing Weight 100, kg, Start date: 10/14/13 15:00:00, Stop date: 11/17/13 9:15:00Notes: May interfere w/enteral feedings - Take 1 hr before or 2 hrs after antacids, dairy pdt & minerals. On empty stomach. Benadryl 25 mg, 1 cap, No Longer [facility] Route: PO, Drug Active 2013 Medical form: CAP, TID, Center Dosing Weight 100, kg, PRN Itching, Start date: 10/14/13 11:14:00, Duration: 30 day, Stop date: 11/13/13 11:13:00Notes: (Same as: Benadryl) fondaparinux 7.5 mg=0.6 mL, Active [place] 7.5 mg/0.6 mL SUB-Q, Q24H, # 2014 Medical subcutaneous 10 mL, 1 Center solution Refill(s) Benadryl 50 mg, 2 cap, No Longer [facility] Route: PO, Drug Active 2013 Medical form: CAP, TID, Center Dosing Weight 100, kg, PRN Allergic reaction, Start date: 10/13/13 4:41:00, Duration: 30 day, Stop date: 11/12/13 4:40:00Notes: (Same as: Benadryl) Zofran 4 mg, 2 mL, No Longer [facility] Route: IV, Drug Active 2013 Medical form: INJ, Q8H, Center Dosing Weight 100, kg, PRN Nausea, Start date: 10/13/13 4:34:00, Duration: 30 day, Stop date: 11/12/13 4:33:00Notes: (Same as: Zofran) Arixtra 7.5 mg, 0.6 mL, No Longer [facility] Route: SUB-Q, Active 2013 Medical Drug form: SOLN, Center Q24H, Start date: 10/12/13 14:00:00, Duration: 30 day, Stop date: 11/10/13 14:00:00Notes: (Same as Arixtra) Non-Formulary Drug Passthrough med Warfarin 10 mg, 1 tab, Inactive [place] Route: PO, Drug 2013 Medical form: TAB, Q5PM, Center Dosing Weight 100, kg, Start date: 10/11/13 17:00:00, Duration: 1 doses or times, Stop date: 10/11/13 17:00:00Notes: Nurse to ensure documentation of patient education per anticoagulation policy. Avoid large intake of vitamin-K containing foods diet. (Same As: Coumadin) Potassium 20 mEq, 1 tab, No Longer [facility] Chloride Route: PO, Drug Active 2013 Medical form: ERTAB, Center Daily, Dosing Weight 100, kg, Start date: 10/11/13 9:37:00, Duration: 30 day, Stop date: 11/10/13 9:00:00 Losartan 25 mg, 1 tab, No Longer [facility] Route: PO, Drug Active 2013 Medical form: TAB, Center Daily, Dosing Weight 100, kg, Start date: 10/11/13 9:00:00, Duration: 30 day, Stop date: 11/09/13 9:00:00Notes: (Same as: Cozaar) Warfarin 7.5 mg, 1 tab, Inactive [facility] Route: PO, Drug 2013 Medical form: TAB, Q5PM, Center Dosing Weight 100, kg, Start date: 10/10/13 17:00:00, Duration: 1 doses or times, Stop date: 10/10/13 17:00:00Notes: Nurse to ensure documentation of patient education per anticoagulation policy. Avoid large intake of vitamin-K containing foods diet. (Same As: Coumadin) Magnesium 2 gm, 50 mL, Inactive [facility] Sulfate Route: IVPB2013 Medical Drug form: INJ, Center Q2H, Dosing Weight 100, kg, Total dose=4 gm, Start date: 10/10/13 8:00:00, Duration: 2 doses or times, Stop date: 10/10/13 10:00:00 Potassium 20 mEq, 100 mL, Inactive [facility] Chloride Route: IVPB2013 Medical Drug form: INJ, Center Q2H, Dosing Weight 100, kg, Total dose=60 mEq, Start date: 10/10/13 8:00:00, Duration: 3 doses or times, Stop date: 10/10/13 12:00:00Notes: (Same as: KCL) Infuse no faster than 10 mEq/hr if given peripherally. Lipitor 80 mg, 1 tab, No Longer [facility] Route: PO, Drug Active 2013 Medical form: TAB, Center Bedtime, Dosing Weight 100, kg, Start date: 10/09/13 21:00:00, Duration: 30 day, Stop date: 11/07/13 21:00:00Notes: Same as Lipitor Coumadin 7.5 mg, 1 tab, Inactive [facility] Route: PO, Drug 2013 Medical form: TAB, Q5PM, Center Dosing Weight 100, kg, Start date: 10/09/13 17:00:00, Duration: 1 doses or times, Stop date: 10/09/13 17:00:00Notes: Nurse to ensure documentation of patient education per anticoagulation policy. Avoid large intake of vitamin-K containing foods diet. (Same As: Coumadin) Effexor XR 37.5 mg, 1 cap, No Longer [facility] Route: PO, Drug Active 2013 Medical form: ERCAP, Center Daily, Dosing Weight 100, kg, Start date: 10/09/13 9:00:00, Duration: 30 day, Stop date: 11/07/13 9:00:00Notes: Do not open, crush, or chew. (Same As: Effexor XR) Proscar 5 mg, 1 tab, No Longer [facility] Route: PO, Drug Active 2013 Medical form: TAB, Center Daily, Dosing Weight 100, kg, Start date: 10/09/13 9:00:00, Duration: 30 day, Stop date: 11/07/13 9:00:00Notes: (Same as: Proscar) "Do Not Crush" Aspirin 325 MG 325 mg, 1 tab, No Longer [facility] Enteric Coated Route: PO, Drug Active 2013 Medical Tablet form: ECTAB, Center Daily, Dosing Weight 100, kg, Start date: 10/09/13 9:00:00, Duration: 30 day, Stop date: 11/07/13 9:00:00Notes: (Do Not Crush) Do not crush or chew. heparin 500 mL, Rate: No Longer [place] additive 25,000 23.08 ml/hr, Active 2013 Medical unit [14 Infuse over: Center unit/kg/hr] + 21.7 hr, Route: Premix Diluent IV, Dosing Dextrose 5% 500 Weight 82.42 kg, mL Total Volume: 500 mL, Start date: 10/08/13 23:55:00, Duration: 30 day, Stop date: 11/07/13 23:54:00 Saline Flush 5 ml, Route: No Longer Maria Alejandra 0.9% IVP, Drug Form: Active 2013 Medical INJ, Dosing Center Weight 100, kg, Q12H, Start date: 10/08/13 21:00:00, Duration: 30 day, Stop date: 11/07/13 9:00:00Notes: Same as: BD Posiflush Sterile Lovenox 40 mg, 0.4 mL, No Longer Maria Alejandra Route: SUB-Q, Active 2013 Medical Drug form: INJ, Center [id number], Dosing Weight 100, kg, Priority: NOW, Start date: 10/08/13 14:59:00, Duration: 30 day, Stop date: 11/06/13 14:59:00Notes: (Same as: Lovenox) iodixanol 85 mL, Route: Inactive [place] IVP, Drug Form: 2013 Medical SOLN, Dosing Center Weight 100, kg, ONCALL, STAT, Start date: 10/08/13 14:28:00, Duration: 1 doses or times, Dose=2.2ml/kg, Max [id number] -- "To be infused by Radiology Staff ONLY"Special Instructions: Dose=2.2ml/kg, Max [id number] -- "To be infused by Radiology Staff ONLY"Notes: (Same as: Visipaque). Saline Flush 5 ml, Route: No Longer [place] 0.9% IVP, Drug Form: Active 2013 Medical INJ, Dosing Center Weight 100, kg, PRN, PRN Line Flush, Start date: 10/08/13 11:44:00, Duration: 30 day, Stop date: 11/07/13 11:43:00Notes: Same as: BD Posiflush Sterile Acetaminophen 650 mg, 2 tab, No Longer [place] Route: PO, Drug Active 2013 Medical form: TAB, Q4H, Center Dosing Weight 100, kg, PRN Pain 1-3/Temp > 99.5 F, Start date: 10/08/13 11:44:00, Duration: 30 day, Stop date: 11/07/13 11:43:00Notes: Do not exceed 4 gm/day. (Same as: Tylenol) Labetalol 10 mg, 2 mL, No Longer [place] Route: IVP, Drug Active 2013 Medical form: INJ, Center Q10Min, Dosing Weight 100, kg, PRN Elevated BP, Start date: 10/08/13 11:44:00, Duration: 30 day, Stop date: 11/07/13 11:43:00, For SBP > 220mmHg and/or DBP > 110mmHg Chlorthalidone 25 mg=1 tab, PO, Active [place] 25 MG Oral Daily, take 02/18 2013 Medical Tablet tab, # 30 tab, 0 Center Refill(s)Special Instructions: take 1/2 tab Finasteride 5 5 mg=1 tab, PO, Active [place] MG Oral Tablet Daily, # 30 tab, 2014 Medical [Proscar] 0 Refill(s) Center Spironolactone 25 mg=1 tab, PO, Active [place] 25 MG Oral Daily, # 180 2013 Medical Tablet tab, 0 Refill(s) Center [Aldactone] losartan 25 mg 25 mg=1 tab, PO, Active [facility] oral tablet Daily, # 30 tab, 2014 Medical 0 Refill(s) Center 24 HR 37.5 mg=1 cap, Active [facility] venlafaxine PO, Daily, # 30 2013 Medical 37.5 MG cap, 0 Refill(s) [place] Extended Release Capsule [Effexor] Lisinopril 0 Refill(s) Inactive [facility] 2013 [facility] Lasix 0 Refill(s) Inactive [facility] 2013 [facility] Warfarin Sodium 7.5 mg=1 tab, No Longer [facility] 7.5 MG Oral PO, Daily, # 30 Active 2013 Medical Tablet tab, 0 Refill(s) [place] [Coumadin] Allergies, Adverse Reactions, Alerts Substance Category Reaction Severity Reaction Status Date Comments Source type Reported Lipitor<sup Assertion 2 Drug allergy Active 1Nausea, [place] >1</sup> vomiting, Medical headache, Center and an "itchy" facial rash aspirin Assertion Stomach Propensity Active [facility] upset to adverse Medical reactions to Center drug Lipitor<sup Assertion 2 Drug Active Nausea, [place] >1, 2</sup> intolerance vomiting, Medical headache, Center and an "itchy" facial rash Immunizations Immunization Date Given Site Status Last Updated Comments Source Results Order Name Results Value Reference Date Interpretation Comments Source Range CHEM PANEL Phosphorus 2.9 mg/dL 2.5 - 4.5 10/25 [facility] [address] [place] [address] CHEM PANEL Magnesium 2.4 mg/dL 1.8 - 2.4 10/25 [facility] CHEM PANEL Calcium Lvl 8.5 mg/dL 8.5 - 10.5 10/[address] CHEM PANEL Chloride Lvl 105 meq/L 95 - 109 10/[address] CHEM PANEL CO2 25 meq/L 24 - 32 10/[address] CHEM PANEL eGFR 56 10/25 Result Comment: The eGFR is calculated using the CKD-EPI formula. In most young, healthy individuals the eGFR will be >90 mL/ min/1.73m2. The eGFR declines with age. An eGFR of 60-89 may be normal in [facility] mL/min/1. some populations, particularly the elderly, for whom the CKD-EPI formula has not been extensively validated. Use of the eGFR is not recommended in the following populations: Medical [facility] Center Individuals with unstable creatinine concentrations, including patients and those with serious co-morbid conditions. Patients with extremes in muscle mass or diet. The data above are obtained from the National Kidney Disease Education Program (NKDEP) which additionally recommends that when the eGFR is used in patients with extremes of body mass index for purposes of drug dosing, the eGFR should be multiplied by the estimated BMI. CHEM PANEL Creatinine 1.25 mg/dL 0.50 - 10/25 [facility] Lvl 1.40 [facility] CHEM PANEL Sodium Lvl 140 meq/L 135 - 145 10/[address] CHEM PANEL Potassium 3.6 meq/L 3.5 - 5.1 10/25 [facility] CHEM PANEL Glucose Lvl 95 mg/dL 70 - 99 10/[address] CHEM PANEL BUN 16 mg/dL 7 - 22 10/[address] CHEM PANEL AGAP 13.6 meq/L 10.0 - 10/25 [facility] 20.0 [facility] HEMATOLOGY Eosinophils 12.0 % 0.0 - 4.0 10/[address] HEMATOLOGY Segs 52.8 % 45.0 - 09 [facility] 75.0 [facility] HEMATOLOGY Lymphocytes 26.6 % 20.0 - 09 [facility] 40.0 [facility] HEMATOLOGY Monocytes 8.1 % 2.0 - 12.0 10/[address] HEMATOLOGY Monocytes # 0.6 K/CMM 0.0 - 0.8 10/[address] HEMATOLOGY Basophils 0.5 % 0.0 - 1.0 10/[address] HEMATOLOGY Eosinophils 0.9 K/CMM 0.0 - 0.5 10/25 [facility] # [facility] HEMATOLOGY Neutrophils 3.8 K/CMM 1.5 - 8.1 10/[address] HEMATOLOGY Lymphocytes 1.9 K/CMM 1.0 - 5.5 10/25 [place] # /2017 [facility] HEMATOLOGY Hgb 12.2 g/dL 14.0 - 10/25 [place] 18.0 [facility] HEMATOLOGY Hct 37.2 % 42.0 - 10/25 [place] 54.0 [facility] HEMATOLOGY WBC 7.3 K/CMM 3.7 - 10.4 10/25 [facility] HEMATOLOGY RBC 4.51 M/CMM 4.70 - 10/25 [place] 6.10 [facility] HEMATOLOGY MPV 8.0 fL 7.4 - 10.4 10/25 [facility] HEMATOLOGY RDW 18.0 % 11.5 - 10/25 [place] 14.5 [facility] HEMATOLOGY Platelet 270 K/CMM 133 - 450 10/25 [facility] HEMATOLOGY MCV 82.5 fL 80.0 - 10/25 [place] 94.0 [facility] HEMATOLOGY MCHC 32.8 g/dL 32.0 - 10/25 [place] 36.0 [facility] HEMATOLOGY MCH 27.1 pg 27.0 - 10/25 [place] 31.0 [facility] PARATHYROI Ca Norm WB 1.12 1.05 - 10/25 [facility] D PROFILE mMol/L 1. [facility] PARATHYROI Ca Ion WB 1.12 1.05 - 10/25 [facility] D PROFILE mMol/L 1. [facility] CARDIAC Troponin-I null 0.00 - 10/24 [facility] ENZYMES 0.40 [facility] Neck wo Neck wo EXAM: MRA NECK WITHOUT CONTRAST 10/24 - [facility] contrast contrast MRA /2017 - Medical MRA This report was dictated by a [employer] Clerk/Fellow. I have personally reviewed the images as Center well as the Resident's interpretation and agree with the findings. DATE: 10/25/2017 7:58 AM Read by: Maria Isabel Vinson MD Resident: Maria Isabel Vinson MD Dictated Date/time: 10/25/17 09:57 Electronically Signed by: Iwona Lundberg MD 10/25/17 11:45 FINAL REPORT INDICATION: Stroke, both acute and chronic COMPARISON: CTA of the head and neck dated 03/12/2014. MRI of the brain dated 09/23/2017 TECHNIQUE: Noncontrast MR angiogram of the neck was obtained using time-of- flight technique, with 3D spin and tumble reformats. 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 There is no flow limitation. Flow signal abnormality is present in the distal left in ternal carotid artery which potentially may represent atherosclerotic disease versus artifact. The right common and cervical internal carotid arteries are patent with no flow limitation. The bilateral v ertebral arteries are patent.. The right vertebral artery is dominant. IMPRESSION: 1. 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 2. Flow signal abnormality in the distal cervical left internal carotid artery which may represent an artifact versus atherosclerotic disease. Further characterization with CTA is available. CARDIAC Troponin-I null 0.00 - 10/24 [facility] ENZYMES 0.40 /2017 [facility] CHEM PANEL A/G Ratio 0.8 0.7 - 1.6 10/[address] CHEM PANEL Globulin 4.5 g/dL 2.7 - 4.2 10/[address] CHEM PANEL AGAP 11.3 meq/L 10.0 - 10/24 [facility] [address] [place] [address] CHEM PANEL B/C Ratio 12 6 - 25 10/[address] CHEM PANEL Total 7.9 g/dL 6.4 - 8.4 10/[address] CHEM PANEL AST 18 unit/L 0 - 37 10/[address] CHEM PANEL ALT 23 unit/L 0 - 65 10/[address] CHEM PANEL Albumin Lvl 3.4 g/dL 3.5 - 5.0 10/[address] CHEM PANEL Bili Total 0.3 mg/dL 0.2 - 1.3 10/[address] CHEM PANEL Alk Phos 82 unit/L 39 - 136 10/[address] CHEM PANEL Glucose Lvl 111 mg/dL 70 - 99 10/[address] CHEM PANEL Creatinine 1.51 mg/dL 0.50 - 10/24 [facility] Lvl 1.40 [facility] CHEM PANEL CO2 26 meq/L 24 - 32 10/[address] CHEM PANEL Sodium Lvl 134 meq/L 135 - 145 10/[address] [place] [address] CHEM PANEL Potassium 3.3 meq/L 3.5 - 5.1 10/24 [facility] Lvl [facility] CHEM PANEL Chloride Lvl 100 meq/L 95 - 109 10/[address] CHEM PANEL Calcium Lvl 9.5 mg/dL 8.5 - 10.5 10/[address] CHEM PANEL BUN 18 mg/dL 7 - 22 10/[address] CHEM PANEL eGFR 44 10/24 Result Comment: The eGFR is calculated using the CKD-EPI formula. In most young, healthy individuals the eGFR will be >90 mL/ min/1.73m2. The eGFR declines with age. An eGFR of 60-89 may be normal in [facility] mL/min/1. some populations, particularly the elderly, for whom the CKD-EPI formula has not been extensively validated. Use of the eGFR is not recommended in the following populations: [address] Individuals with unstable creatinine concentrations, including patients and those with serious co-morbid conditions. Patients with extremes in muscle mass or diet. The data above are obtained from the National Kidney Disease Education Program (NKDEP) which additionally recommends that when the eGFR is used in patients with extremes of body mass index for purposes of drug dosing, the eGFR should be multiplied by the estimated BMI. HEMATOLOGY Segs 54.0 % 45.0 - 10/24 [facility] 75.0 [facility] HEMATOLOGY Lymphocytes 25.4 % 20.0 - 10/24 [facility] 40.0 [facility] HEMATOLOGY Monocytes 9.5 % 2.0 - 12.0 10/[address] HEMATOLOGY Eosinophils 10.4 % 0.0 - 4.0 10/[address] HEMATOLOGY Basophils 0.7 % 0.0 - 1.0 10/[address] HEMATOLOGY Neutrophils 4.4 K/CMM 1.5 - 8.1 10/24 [facility]2017 [facility] HEMATOLOGY Basophils # 0.1 K/CMM 0.0 - 0.2 10/[address] HEMATOLOGY Lymphocytes 2.1 K/CMM 1.0 - 5.5 10/24 [facility]2017 [facility] HEMATOLOGY Monocytes # 0.8 K/CMM 0.0 - 0.8 10/24 [facility] HEMATOLOGY Eosinophils 0.9 K/CMM 0.0 - 0.5 10/24 # /2017 [facility] HEMATOLOGY PTT 34.0 s 22.9 - 10/24 35.8 [facility] HEMATOLOGY INR 1.00 0.85 - 10/24 [facility] 1.17 [facility] HEMATOLOGY PT 13.2 s 12.0 - 10/24 14.7 [facility] HEMATOLOGY MCV 82.0 fL 80.0 - 10/24 [facility] 94.0 /2017 [facility] HEMATOLOGY MCH 28.0 pg 27.0 - 10/24 [facility] 31.0 /2017 [facility] HEMATOLOGY WBC 8.2 K/CMM 3.7 - 10.4 10/24 [facility] HEMATOLOGY RBC 4.59 M/CMM 4.70 - 10/24 [facility] 6.10 [facility] HEMATOLOGY Hgb 12.9 g/dL 14.0 - 10/24 [facility] 18.0 [facility] HEMATOLOGY Hct 37.6 % 42.0 - 10/24 [facility] 54.0 [facility] HEMATOLOGY MCHC 34.2 g/dL 32.0 - 10/24 36.0 [facility] HEMATOLOGY RDW 18.5 % 11.5 - 10/24 [facility] 14.5 [facility] HEMATOLOGY Platelet 288 K/CMM 133 - 450 10/24 [facility] HEMATOLOGY MPV 7.7 fL 7.4 - 10.4 10/24 [facility] [address] [place] [address] LIPIDS CHD Risk 5.93 4.00 - 10/24 [facility] 7.30 [facility] LIPIDS VLDL 45 10/24 [facility] LIPIDS LDL 98 mg/dL <=99 mg/dL 10/24 [facility] (Calculated) [facility] LIPIDS Chol 172 mg/dL <=199 10/24 [facility] mg/dL [facility] LIPIDS Trig 226 mg/dL <=149 10/24 [facility] mg/dL [facility] LIPIDS HDL 29 mg/dL >=61 mg/dL 10/24 [facility] [address] [place] [address] SPECIAL Hgb A1C 6.2 % <=5.6 % 10/24 [facility] CHEMISTRY [facility] URINE AND UA RBC None Seen 0 - 2 10/24 [facility] STOOL Medical (10/24/17 4:30 AM) Center URINE AND UA WBC None Seen None Seen 10/24 [facility]2017 [facility] (10/24/17 4:30 AM) [place] URINE AND UA Sq Epi None Seen Few 10/24 [facility]2017 [facility] (10/24/17 4:30 AM) [place] URINE AND UA Bacteria Few /HPF None Seen 10/24 [facility] /HPF /2017 [facility] URINE AND UA Turbidity Clear Clear 10/24 [facility]2017 [facility] (10/24/17 4:30 AM) [place] URINE AND UA Spec Grav 1.015 <=1.030 10/[address] URINE AND UA 0.2 EU/dL 0.1 - 1.0 10/24 [facility] Urobilinogen /2017 [facility] URINE AND UA Blood Negative Negative 10/[address] (10/24/17 4:30 AM) [place] URINE AND UA Leuk Est Negative Negative 10/[address] (10/24/17 4:30 AM) [place] URINE AND UA Nitrite Negative Negative 10/24 [facility] [address] [place] [address] (10/24/17 4:30 AM) [place] URINE AND UA Protein Negative Negative 10/24 [facility] mg/dL mg/dL /2017 [facility] URINE AND UA Glucose Negative Negative 10/24 [facility] mg/dL mg/dL /2017 [facility] URINE AND UA pH 7.0 5.0 - 8.0 10/[address] URINE AND UA Ketones Negative Negative 10/24 [facility] mg/dL mg/dL /[address] [place] [address] URINE AND UA Bili Negative Negative 10/24 [facility] [address] [place] [address] *NA* [place] (10/24/17 4:30 AM) URINE AND UA Color Yellow Yellow 10/24 [facility] [address] [place] [address] *NA* [place] (10/24/17 4:30 AM) Brain wo Brain wo EXAM: MRI BRAIN WITHOUT CONTRAST 10/23 - [facility] contrast contrast MRI /2017 - Medical MRI EXAM: MR ANGIOGRAPHY BRAIN WITHOUT CONTRAST This report was dictated by a [employer] Clerk/Fellow. I have personally reviewed the images as Center well as the Resident's interpretation and agree with the findings. Read by: Sj Vidal MD Resident: Sj Vidal MD Dictated Date/time: 10/24/17 02:28 DATE: 10/24/2017 00:26 AM CDT Electronically Signed by: Lilli Avila 10/24/17 08:29 FINAL REPORT INDICATION: - Stroke COMPARISON: MRI of the brain dated 08/10/2014 TECHNIQUE: - Multiplanar non-contrast MRI images of the brain. - Three-dimensional time of flight brain MR angiography of intracranial vessels is performed, and maximum intensity projection reformatted images are presented in multiple three-dimensional rotational projections. - IV contrast: None. FINDINGS: BRAIN MRI: An area of restricted diffusion consistent with acute infarct is identified in the left temporal and occipital cortex. Subtle T2 signal changes are already present in this region indicating early subacu te evolution. Extensive areas of encephalomalacia are identified in the right frontal, parietal, and occipital lobes, in the left cerebellum, and in the right basal ganglia, the latter with chronic hemo rrhage. In addition, chronic microvascular ischemic changes in the periventricular and subcortical white matter and in the pankaj are identified. The ventricles and sulci are prominent as are result of vo lume loss. There is minimal mucosal thickening in the left maxillary sinus. BRAIN MRA: The distal internal carotid arteries and the branches of anterior and middle cerebral arteries are patent. The right A1 segment is absent. The distal vertebral arteries, basilar artery, cerebellar branches, and posterior cerebral arteries are patent. IMPRESSION: 1. Recent infarct in the left Q[place]LL STRIPPER territory without hemorrhage. 2. Areas of encephalomalacia consistent with old infarcts in the right cerebral, left cerebellar hemisphere, and right basal ganglia. 3. Unremarkable MRA of the brain. There is no major intracranial branch occlusion. Brain wo Brain wo EXAM: MRI BRAIN WITHOUT CONTRAST 10/23 - [facility] contrast contrast MRA /2017 - Medical MRA EXAM: MR ANGIOGRAPHY BRAIN WITHOUT CONTRAST This report was dictated by a [employer] Clerk/Fellow. I have personally reviewed the images as Center well as the Resident's interpretation and agree with the findings. Read by: Sj Vidal MD Resident: Sj Vidal MD Dictated Date/time: 10/24/17 02:28 DATE: 10/24/2017 00:26 AM CDT Electronically Signed by: Lilli Avila 10/24/17 08:29 FINAL REPORT INDICATION: - Stroke COMPARISON: MRI of the brain dated 08/10/2014 TECHNIQUE: - Multiplanar non-contrast MRI images of the brain. - Three-dimensional time of flight brain MR angiography of intracranial vessels is performed, and maximum intensity projection reformatted images are presented in multiple three-dimensional rotational projections. - IV contrast: None. FINDINGS: BRAIN MRI: An area of restricted diffusion consistent with acute infarct is identified in the left temporal and occipital cortex. Subtle T2 signal changes are already present in this region indicating early subacu te evolution. Extensive areas of encephalomalacia are identified in the right frontal, parietal, and occipital lobes, in the left cerebellum, and in the right basal ganglia, the latter with chronic hemo rrhage. In addition, chronic microvascular ischemic changes in the periventricular and subcortical white matter and in the pankaj are identified. The ventricles and sulci are prominent as are result of vo lume loss. There is minimal mucosal thickening in the left maxillary sinus. BRAIN MRA: The distal internal carotid arteries and the branches of anterior and middle cerebral arteries are patent. The right A1 segment is absent. The distal vertebral arteries, basilar artery, cerebellar branches, and posterior cerebral arteries are patent. IMPRESSION: 1. Recent infarct in the left [place] territory without hemorrhage. 2. Areas of encephalomalacia consistent with old infarcts in the right cerebral, left cerebellar hemisphere, and right basal ganglia. 3. Unremarkable MRA of the brain. There is no major intracranial branch occlusion. Laboratory White Blood 7.6 K/uL 4.3 - 10.9 06/04 [facility] [address] Studies Count /2017 [facility] Red Cell 14.9 % 12.1 - 06/04 [facility]. Studies Distribution 15.2 [facility] Red Blood 3.87 M/uL 4.33 - 06/04 [facility] [address]. Studies Count 5.43 /2017 [facility] Platelet 268 K/uL 152 - 406 06/04 [facility] [address] Studies Count /2018 [facility] Neutrophils 58.6 % 41.7 - 06/[address] [facility] [address] Studies % 73.7 /2017 [facility] Monocytes % 9.4 % 3.3 - 12.3 06/04 [facility] [address] Studies /2018 [facility] Mean 8.3 fL 7.6 - 11.3 06/04 [facility] [address] Studies Platelet /2018 [facility] [place] [facility] Mean 81.8 fL 80 - 100 06/04 [facility] [address] Studies Corpuscular /2017 [facility] [place] [facility] Mean 33.6 g/dL 32.0 - 06/04 [facility] [address]. Studies Corpuscular 36.0 [facility] Hemoglobin [place] [facility] Mean 27.5 pg 27.0 - 06/04 [facility] [address] Studies Corpuscular 35.0 [facility] Hemoglobin [place] [facility] Lymphocytes 21.9 % 15.3 - 04 [facility] [address]. Studies % 44.8 [facility] Hemoglobin 10.6 g/dL 13.6 - 06/04 [facility] [address]. Studies 17.9 /2017 [facility] Hematocrit 31.6 % 39.6 - 06/04 [facility] [address]. Studies 49.0 [facility] Eosinophils 9.6 % 0 - 4.4 06/04 [facility] [address] Studies % /2017 [facility] Basophils % 0.5 % 0 - 1.3 06/04 [facility] [address] Studies /2017 [facility] Absolute 4.4 K/uL 1.8 - 8.0 06/04 [facility] [address] Studies Neutrophil [facility] Absolute 0.7 K/uL 0.1 - 1.3 06/04 [facility] [address] Studies Monocytes [facility] ([facility] [place] Absolute 1.7 K/uL 0.7 - 4.9 06/04 [facility] [address] Studies Lymphocytes [facility] ([facility]) [place] [facility] Absolute 0.7 K/uL 0 - 0.5 06/04 [facility] [address] Studies Eosinophils [facility] ([facility]) [facility] [facility] Absolute 0.0 K/uL 0 - 0.5 06/04 [facility] [address] Studies Basophils [facility] ([facility]) [facility] Sodium Level 140 mEq/L 135 - 145 06/04 [facility] [address]. Studies /2017 [facility] Potassium 3.7 mEq/L 3.6 - 5.0 06/04 [facility] [address] Studies Level [facility] Glucose 120 mg/dL 65 - 120 06/04 [facility] [address] Studies Level 2018 [facility] Estimat 68 mL/min 90 06/04 [facility] [address] Studies Glomerular [facility] Fil[facility] [place] Rate [facility] Creatinine 1.06 mg/dL 0.61 - 04 [facility] [address]. Studies 1.24 [facility] Chloride 103 mEq/L 101 - 111 06/04 [facility] [address]. Studies Level /2017 [facility] Carbon 32 mEq/L 21 - 31 06/04 [facility] Studies Dioxide /2017 [facility] Calcium 8.7 mg/dL 8.5 - 10.5 06/04 [facility] St. Studies Level /2017 [facility] Blood Urea 18 mg/dL 6 - 20 06/04 [facility] Studies Nitrogen /2017 [facility] Total 0.4 mg/dL 0.3 - 1.2 06/03 [facility] Studies Bilirubin /2017 [facility] Serum Total 7.7 g/dL 6.0 - 8.3 06/03 [facility] Studies Protein /2017 [facility] Globulin 3.9 g/dL 2.3 - 3.5 06/03 [facility] Studies /2017 [facility] Direct 0.1 mg/dL 0 - 0.2 06/03 [facility] Studies Bilirubin /2017 [facility] Aspartate 16 IU/L 10 - 42 06/03 [facility] Studies Amino Transf /2017 [facility] ([facility] Amylase 51 U/L 28 - 100 06/[address] [facility] [address] Studies Level /2017 [facility] Alkaline 70 IU/L 42 - 121 06/03 [facility] Studies Phosphatase /2017 [facility] Albumin/Glob 1.0 1.1 - 1.8 06/03 [facility] Studies ulin Ratio /2017 [facility] Albumin 3.8 g/dL 3.2 - 5.5 06/03 [facility] Studies /2017 [facility] Alanine 14 IU/L 10 - 60 06/03 [facility] Studies Aminotransfe /2017 [facility] [place] (ALT/SGPT) Laboratory Lipase 18 U/L 22 - 51 06/03 [facility] Studies /2017 [facility] Magnesium 1.8 mg/dL 1.8 - 2.5 04/15 [facility] [address] Studies Level /2017 [facility] Urine pH 6.0 04/[address] [facility] [address] Studies [facility] Urine Total Urine 04/14 [facility] Studies Protein Total /2017 [facility] Protein [place] Urine 1.010 04/14 [facility] [address] Studies Specific /2017 [facility] Tow [place] Urine Urine 04/14 [facility] Studies Nitrite Nitrite /2017 [facility] Urine Urine 04/14 [facility] Studies Leukocyte Leukocyte /2017 [facility] Esterase Esterase [place] Urine Urine 04/14 [facility] Studies Ketones Ketones /2017 [facility] Urine Urine 04/14 [facility] Studies Glucose Glucose /2017 [facility] Urine Blood Urine 04/14 [facility] Studies Blood /2017 [facility] Urine WBC null 04/[address] [facility] [address] Studies /2017 [facility] Urine null 04/14 [facility] Studies Squamous [facility] Epithelial [place] [facility] Urine RBC Urine RBC 04/14 [facility] Studies [facility] Urine Urine 04/14 [facility] Studies Culture Culture /2017 [facility] Reflexed Reflexed [place] Urine Urine 04/14 [facility] Studies Bacteria Bacteria /2017 [facility] [place] CHEM PANEL eGFR 74 03/14 1Result Comment: The eGFR is calculated using the CKD-EPI formula. In most young, healthy individuals the eGFR will be >90 mL/ min/1.73m2. The eGFR declines with age. An eGFR of 60-89 may be normal in [facility] mL/min/1.7 some populations, particularly the elderly, for whom the CKD-EPI formula has not been extensively validated. Use of the eGFR is not recommended in the following populations: [address] Individuals with unstable creatinine concentrations, including patients and those with serious co-morbid conditions. Patients with extremes in muscle mass or diet. The data above are obtained from the National Kidney Disease Education Program (NKDEP) which additionally recommends that when the eGFR is used in patients with extremes of body mass index for purposes of drug dosing, the eGFR should be multiplied by the estimated BMI. CHEM PANEL Calcium Lvl 8.7 mg/dL 8.5 - 10.5 03/14 [facility] /2014 [facility] CHEM PANEL Creatinine 1.0 mg/dL 0.5 - 1.4 03/14 [facility] CHEM PANEL Chloride Lvl 110 meq/L 95 - 109 03/14 [facility] CHEM PANEL CO2 25 meq/L 24 - 32 03/14 [facility] CHEM PANEL BUN 17 mg/dL 7 - 22 03/14 [facility] CHEM PANEL Sodium Lvl 143 meq/L 135 - 145 03/14 [facility] CHEM PANEL Glucose Lvl 99 mg/dL 70 - 99 03/14 4Interpretive Data: Adult reference range values reflect the clinical guidelines of the [place] [employer]. [facility] CHEM PANEL Potassium 3.5 meq/L 3.5 - 5.1 03/14 [facility] CHEM PANEL AGAP 11.5 meq/L 10.0 - 03/14 . [facility] CHEM PANEL Magnesium 1.9 mg/dL 1.8 - 2.4 03/14 [facility] CHEM PANEL Phosphorus 2.4 mg/dL 2.5 - 4.5 03/14 [facility] HEMATOLOGY WBC 7.4 K/CMM 3.7 - 10.4 03/14 [facility] HEMATOLOGY Platelet 199 K/CMM 133 - 450 03/14 [facility] HEMATOLOGY MPV 8.8 fL 7.4 - 10.4 03/14 [facility] HEMATOLOGY RDW 14.3 % 11.5 - 03/14 14.5 [facility] HEMATOLOGY MCHC 33.6 g/dL 32.0 - 03/14 36.0 [facility] HEMATOLOGY MCH 28.1 pg 27.0 - 03/14 31.0 [facility] HEMATOLOGY RBC 4.33 M/CMM 4.70 - 03/14 6.10 [facility] HEMATOLOGY Hgb 12.2 g/dL 14.0 - 03/14 18.0 [facility] HEMATOLOGY Hct 36.2 % 42.0 - 03/14 54.0 [facility] HEMATOLOGY MCV 83.6 fL 80.0 - 03/14 94.0 [facility] HEMATOLOGY PTT 35.5 s 22.9 - 03/14 10Interpretiv [place] 35.8 /2014 e Data: [facility] Therapeutic Range: 57 - 92 Seconds HEMATOLOGY INR 2.03 0.85 - 03/14 7Interpretive Data: RECOMMENDED RANGES FOR PROTIME INR: [facility] 03.05 2.0-3.0 for most medical and surgical thromboembolic states. Medical 2.5-3.5 for artificial heart valves and recurrent embolism. Center INR SHOULD BE USED ONLY FOR PATIENTS ON STABLE ANTICOAGULANT THERAPY. HEMATOLOGY PT 23.5 s 12.0 - 03/14 14. [facility] HEMATOLOGY Segs 52.1 % 45.0 - 03/14 75.0 [facility] HEMATOLOGY Lymphocytes 29.1 % 20.0 - 03/14 [place] 40.0 [facility] HEMATOLOGY Segs-Bands # 3.9 K/CMM 1.5 - 8.1 03/14 [facility] HEMATOLOGY Monocytes 9.2 % 2.0 - 12.0 03/14 [facility] HEMATOLOGY Basophils 0.6 % 0.0 - 1.0 03/14 [facility] HEMATOLOGY Eosinophils 9.0 % 0.0 - 4.0 03/14 [facility] HEMATOLOGY Eosinophils 0.7 K/CMM 0.0 - 0.5 03/14 /2014 [facility] HEMATOLOGY Monocytes # 0.7 K/CMM 0.0 - 0.8 03/14 [facility] HEMATOLOGY Lymphocytes 2.2 K/CMM 1.0 - 5.5 03/14 [facility] HEMATOLOGY INR 2.03 0.85 - 03/13 8Interpretive Data: RECOMMENDED RANGES FOR PROTIME INR: [facility] 03.05 2.0-3.0 for most medical and surgical thromboembolic states. Medical 2.5-3.5 for artificial heart valves and recurrent embolism. Center INR SHOULD BE USED ONLY FOR PATIENTS ON STABLE ANTICOAGULANT THERAPY. HEMATOLOGY PT 23.5 s 12.0 - 03/13 . [facility] HEMATOLOGY PTT 34.1 s 22.9 - 03/13 11Interpretiv [facility] 35.8 e Data: [facility] Therapeutic Range: 57 - 92 [facility] CHEM PANEL Globulin 3.5 g/dL 2.0 - 4.0 03/13 [facility] CHEM PANEL A/G Ratio 1.0 0.7 - 1.6 03/13 [facility] CHEM PANEL AGAP 9.6 meq/L 10.0 - 03/13 20.0 [facility] CHEM PANEL B/C Ratio 18 6 - 25 03/13 [facility] CHEM PANEL Creatinine 0.9 mg/dL 0.5 - 1.4 03/13 [facility] CHEM PANEL Sodium Lvl 144 meq/L 135 - 145 03/13 [facility] CHEM PANEL Potassium 3.6 meq/L 3.5 - 5.1 03/13 [facility] CHEM PANEL Glucose Lvl 100 mg/dL 70 - 99 03/13 5Interpretive Data: Adult reference range values reflect the clinical guidelines of the [place] [employer]. [facility] CHEM PANEL BUN 16 mg/dL 7 - 03/13 [facility] CHEM PANEL eGFR 84 03/13 2Result Comment: The eGFR is calculated using the CKD-EPI formula. In most young, healthy individuals the eGFR will be >90 mL/ min/1.73m2. The eGFR declines with age. An eGFR of 60-89 may be normal in [facility] mL/min/1. some populations, particularly the elderly, for whom the CKD-EPI formula has not been extensively validated. Use of the eGFR is not recommended in the following populations: [address] Individuals with unstable creatinine concentrations, including patients and those with serious co-morbid conditions. Patients with extremes in muscle mass or diet. The data above are obtained from the National Kidney Disease Education Program (NKDEP) which additionally recommends that when the eGFR is used in patients with extremes of body mass index for purposes of drug dosing, the eGFR should be multiplied by the estimated BMI. CHEM PANEL Bili Total 0.4 mg/dL 0.2 - 1.3 03/13 [facility] CHEM PANEL AST 12 unit/L 0 - 37 03/13 [facility] CHEM PANEL Alk Phos 86 unit/L 39 - 136 03/13 [facility] CHEM PANEL Calcium Lvl 8.4 mg/dL 8.5 - 10.5 03/13 [facility] CHEM PANEL Total 6.9 g/dL 6.4 - 8.4 03/13 [facility] CHEM PANEL Chloride Lvl 110 meq/L 95 - 109 03/13 [facility] CHEM PANEL CO2 28 meq/L 24 - 32 03/13 [facility] CHEM PANEL Albumin Lvl 3.4 g/dL 3.5 - 5.0 03/13 [facility] CHEM PANEL ALT 21 unit/L 0 - 65 03/13 [facility] HEMATOLOGY Hct 35.3 % 42.0 - 03/13 [place] 54.0 [facility] HEMATOLOGY MPV 9.2 fL 7.4 - 10.4 03/13 [facility] HEMATOLOGY MCH 27.3 pg 27.0 - 03/13 [place] 31.0 [facility] HEMATOLOGY MCV 82.9 fL 80.0 - 03/13 [place] 94.0 [facility] HEMATOLOGY RDW 14.0 % 11.5 - 03/13 14. [facility] HEMATOLOGY MCHC 33.0 g/dL 32.0 - 03/13 36.0 [facility] HEMATOLOGY Platelet 203 K/CMM 133 - 450 03/13 [facility] HEMATOLOGY RBC 4.26 M/CMM 4.70 - 03/13 [place] 6.10 [facility] HEMATOLOGY WBC 6.8 K/CMM 3.7 - 10.4 03/13 [facility] HEMATOLOGY Hgb 11.6 g/dL 14.0 - 03/13 18.0 [facility] HEMATOLOGY Basophils 0.5 % 0.0 - 1.0 03/13 [facility] HEMATOLOGY Eosinophils 9.6 % 0.0 - 4.0 03/13 [facility] HEMATOLOGY Lymphocytes 1.8 K/CMM 1.0 - 5.5 03/13 [facility] HEMATOLOGY Segs-Bands # 3.6 K/CMM 1.5 - 8.1 03/13 [facility] HEMATOLOGY Monocytes # 0.7 K/CMM 0.0 - 0.8 03/13 [facility] HEMATOLOGY Eosinophils 0.7 K/CMM 0.0 - 0.5 03/13 [facility] HEMATOLOGY Monocytes 10.9 % 2.0 - 12.0 03/13 [facility] HEMATOLOGY Lymphocytes 26.0 % 20.0 - 03/13 [place] 40.0 [facility] HEMATOLOGY Segs 53.0 % 45.0 - 03/13 [facility] 75.0 /2014 [facility] IMMUNOLOGY Cardiolipin 1.8 <=19.9 APL 03/13 [facility] IgA APL-U/mL [facility] IMMUNOLOGY Cardiolipin 11.7 <=19.9 MPL 03/13 [facility] IgM MPL-U/mL [facility] IMMUNOLOGY Cardiolipin 2.1 <=19.9 GPL 03/13 [facility] IgG GPL-U/mL [facility] LIPIDS VLDL 27 03/13 [facility] LIPIDS Trig 136 mg/dL <=149 03/13 [facility] mg/dL [facility] LIPIDS CHD Risk 3.90 4.00 - 03/13 [facility] 7.30 [facility] LIPIDS LDL 63 mg/dL <=99 mg/dL 03/13 [facility] (Calculated) [facility] LIPIDS Chol 121 mg/dL <=199 03/13 [facility] mg/dL [facility] LIPIDS HDL 31 mg/dL >=61 mg/dL 03/13 [facility] SPECIAL Hgb A1C 6.3 % <=5.6 % 03/13 [facility] CHEMISTRY [facility] URINE AND UA Sq Epi None Seen 03/13 [facility] URINE AND UA <=1.0 0.1 - 1.0 03/13 [facility] Urobilinogen mg/dL [facility] URINE AND UA Glucose Negative Negative 03/13 [facility] mg/dL mg/dL [facility] URINE AND UA Mucus Few /LPF None Seen 03/13 [facility] STOOL /LPF /2014 [facility] URINE AND UA Protein Negative Negative 03/13 [facility] STOOL mg/dL mg/dL [facility] URINE AND UA Ketones Negative Negative 03/13 [facility] STOOL mg/dL mg/dL [facility] URINE AND UA Leuk Est Negative Negative 03/13 [facility] STOOL [facility] (03/13/14 4:40 AM) [place] URINE AND UA pH 6.5 5.0 - 8.0 03/13 [facility] URINE AND UA Nitrite Negative Negative 03/13 [facility] (03/13/14 4:40 AM) [place] URINE AND UA Blood Negative Negative 03/13 [facility] (03/13/14 4:40 AM) [place] URINE AND UA Bili Negative Negative 03/13 [facility] Medical *NA* [place] (03/13/14 4:40 AM) URINE AND UA Turbidity Clear Clear 03/13 [facility] (03/13/14 4:40 AM) [place] URINE AND UA Spec Grav 1.020 <=1.030 03/13 [facility]2014 [facility] URINE AND UA Color Yellow Yellow 03/13 [facility] Medical *NA* [place] (03/13/14 4:40 AM) URINE AND UA Leuk Est Negative Negative 03/13 [facility] (03/12/14 11:25 PM) [place] URINE AND UA Nitrite Negative Negative 03/13 [facility] (03/12/14 11:25 PM) [place] URINE AND UA Blood Negative Negative 03/13 [facility] (03/12/14 11:25 PM) [place] URINE AND UA 0.2 EU/dL 0.1 - 1.0 03/13 [facility] Urobilinogen [facility] URINE AND UA Color Yellow Yellow 03/13 [facility] Medical *NA* [place] (03/12/14 11:25 PM) URINE AND UA Glucose Negative Negative 03/13 [facility] mg/dL mg/dL /2014 [facility] URINE AND UA Bili Negative Negative 03/13 [facility] *NA* [place] (03/12/14 11:25 PM) URINE AND UA Ketones Negative Negative 03/13 [facility] mg/dL mg/dL [facility] URINE AND UA Protein Negative Negative 03/13 [facility] mg/dL mg/dL /[address] [place] [address] URINE AND UA Turbidity Clear Clear 03/13 [facility] (03/12/14 11:25 PM) [place] URINE AND UA pH 7.0 5.0 - 8.0 03/13 [facility]2014 [facility] URINE AND UA Spec Grav 1.010 <=1.030 03/13 [facility] URINE AND UA WBC 0-1 03/13 [facility]2014 [facility] URINE AND UA Sq Epi None Seen Few 03/13 [facility] (03/12/14 11:25 PM) [place] URINE AND UA Mucus None Seen None Seen 03/13 [facility] (03/12/14 11:25 PM) [place] URINE AND UA RBC 0-1 03/13 [facility] URINE AND UA Bacteria None Seen None Seen 03/13 [facility] (03/12/14 11:25 PM) Center CHEM PANEL eGFR 74 03/12 3Result Comment: The eGFR is calculated using the CKD-EPI formula. In most young, healthy individuals the eGFR will be >90 mL/ min/1.73m2. The eGFR declines with age. An eGFR of 60-89 may be normal in [facility] mL/min/1. some populations, particularly the elderly, for whom the CKD-EPI formula has not been extensively validated. Use of the eGFR is not recommended in the following populations: [address] Individuals with unstable creatinine concentrations, including patients and those with serious co-morbid conditions. Patients with extremes in muscle mass or diet. The data above are obtained from the National Kidney Disease Education Program (NKDEP) which additionally recommends that when the eGFR is used in patients with extremes of body mass index for purposes of drug dosing, the eGFR should be multiplied by the estimated BMI. CHEM PANEL Potassium 3.7 meq/L 3.5 - 5.1 03/12 [facility] CHEM PANEL Chloride Lvl 107 meq/L 95 - 109 03/12 [facility] CHEM PANEL CO2 24 meq/L 24 - 32 03/12 [facility]2014 [facility] CHEM PANEL Calcium Lvl 8.6 mg/dL 8.5 - 10.5 03/12 [facility] CHEM PANEL Sodium Lvl 141 meq/L 135 - 145 03/12 [facility] CHEM PANEL Creatinine 1.0 mg/dL 0.5 - 1.4 03/12 [facility] CHEM PANEL Glucose Lvl 95 mg/dL 70 - 99 03/12 6Interpretive Data: Adult reference range values reflect the clinical guidelines of the [place] [employer]. [facility] CHEM PANEL BUN 19 mg/dL 7 - 22 03/12 [facility] CHEM PANEL AGAP 13.7 meq/L 10.0 - 03/12 [facility] 20. [facility] HEMATOLOGY Basophils # 0.1 K/CMM 0.0 - 0.2 03/12 [facility] HEMATOLOGY Eosinophils 0.8 K/CMM 0.0 - 0.5 03/12 [facility] HEMATOLOGY Monocytes 7.5 % 2.0 - 12.0 03/12 [facility] HEMATOLOGY Lymphocytes 27.4 % 20.0 - 03/12 [place] 40.0 /2014 [facility] HEMATOLOGY Segs-Bands # 3.9 K/CMM 1.5 - 8.1 03/12 [facility] HEMATOLOGY Basophils 0.8 % 0.0 - 1.0 03/12 [facility] HEMATOLOGY Eosinophils 10.0 % 0.0 - 4.0 03/12 [facility] HEMATOLOGY Lymphocytes 2.1 K/CMM 1.0 - 5.5 03/12 [place] # /2014 [facility] HEMATOLOGY Segs 54.3 % 45.0 - 03/12 [place] 75.0 [facility] HEMATOLOGY Monocytes # 0.6 K/CMM 0.0 - 0.8 03/12 [facility] HEMATOLOGY PT 22.9 s 12.0 - 03/12 14.7 [facility] HEMATOLOGY INR 1.97 0.85 - 03/12 9Interpretive Data: RECOMMENDED RANGES FOR PROTIME INR: [facility] 1. 2.0-3.0 for most medical and surgical thromboembolic states. Medical 2.5-3.5 for artificial heart valves and recurrent embolism. Center INR SHOULD BE USED ONLY FOR PATIENTS ON STABLE ANTICOAGULANT THERAPY. HEMATOLOGY PTT 36.8 s 22.9 - 03/12 12Interpretiv 35.8 /2014 e Data: [facility] Therapeutic Range: 57 - 92 Seconds HEMATOLOGY Platelet 227 K/CMM 133 - 450 03/12 [facility] HEMATOLOGY RDW 13.7 % 11.5 - 03/12 14.5 [facility] HEMATOLOGY MPV 9.2 fL 7.4 - 10.4 03/12 [facility] HEMATOLOGY MCHC 32.9 g/dL 32.0 - 03/12 36.0 [facility] HEMATOLOGY MCH 27.6 pg 27.0 - 03/12 31.0 [facility] HEMATOLOGY MCV 84.0 fL 80.0 - 03/12 94.0 [facility] HEMATOLOGY Hct 38.1 % 42.0 - 03/12 54.0 [facility] HEMATOLOGY Hgb 12.5 g/dL 14.0 - 03/12 [facility] [place] 18.0 [facility] HEMATOLOGY RBC 4.54 M/CMM 4.70 - 03/12 [facility] 6.10 /2015 [facility] HEMATOLOGY WBC 7.5 K/CMM 3.7 - 10.4 03/12 /2014 [facility] Brain wo Brain wo EXAM: MRI BRAIN WITHOUT CONTRAST 03/12 - [facility] contrast contrast MRI /2014 - [facility] DATE: 03/12/2014 Read by: Loc Jefferson MD Dictated Date/time: 03/12/14 22:50 Electronically Signed by: Loc Jefferson MD 03/12/14 23:04 FINAL REPORT INDICATION: Weakness and left facial droop TECHNIQUE: Limited sequences were obtained including DWI, axial T2 FLAIR, and GRE. COMPARISON: CT brain from 03/12/2014 and MRI brain from 10/08/2013. FINDINGS: Small area of restricted diffusion is present in the right putamen extending to the margin of the right lateral ventricle and caudate body. No hemorrhage. Interval evolution of encephalomalacia in the right perirolandic cortex and parietal and occipital lobes, with some associated T2 shine through. Encephalomalacia in the left cerebellum and at the right occipital pole. Diffuse chronic microangiopathic and small cortical ischemic changes. Passive ventricular dilatation secondary to volume loss. Microhemorrhage in the left cerebral peduncle and [place] infarction in the right thalamus. No extra-axial collection or midline shift. IMPRESSION: Recent ischemic changes in the right basal ganglia. No hemorrhage. Brain/Neck Brain/Neck EXAM: 03/12 - [facility] CTA CTA - [facility] HEAD CTA Center NECK CTA Read by: Lonny Roman Dictated Date/time: 03/13/14 01:13 Electronically Signed by: Lonny Roman 03/13/14 01:26 FINAL REPORT DATE: Mar 12, 2014 06:34:00 PM Comparison with CTA of the neck dated 10/06/2013 CLINICAL HISTORY: Dysarthria TECHNIQUE: Thin collimation axial dynamic postcontrast images were obtained from the thoracic inlet to the cranial vertex for the purposes of evaluating the vascular structures. Reformatted three dimens ional maximum intensity pixel (MIP) images in the coronal, sagittal and axial plane were included for interpretation. NECK CTA FINDINGS: The aortic arch demonstrates atheromatous changes.The origin of the brachiocephalic, left carotid and left subclavian arteries are normal with proximal tortuosity of vessels. Right carotid: The common and internal carotid arteries have normal caliber and contour. Atheromatous changes at the carotid bulb cause no significant narrowing of the internal carotid artery. The extracranial internal carotid artery this side is normal. Left carotid: The common and internal carotid arteries have normal caliber and contour. Atheromatous changes at the carotid bulb with the presence a known dissection of the carotid with slight distention of the proxi mal internal carotid, these findings are unchanged since the previous study from 10/08/2013. Both vertebral arteries have normal origin and trajectory. The azygos vein is moderately distended. HEAD CTA FINDINGS: Diffuse atheromatous changes are seen in the intracranial circulation with slight irregularity of the proximal arteries, these findings are similar to the previous study without significant stenosis. Hy poplastic A1 segment on the right side with a patent anterior communicating artery which feeds the right A2 segment. The branches of the anterior and middle cerebral arteries are patent bilaterally. The basilar artery, cerebellar branches and posterior cerebral arteries are patent There is no aneurysm or high flow vascular malformation. The deep cerebral veins and major venous sinuses are patent. 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 Atheromatous changes of the aortic arch. Views atheromatosis of intravenous circulation causing irregularity of the contour of some of the vessels without significant occlusion or stenosis. All quantitative and qualitative assessments of carotid bifurcation and proximal internal carotid artery stenosis are made at referencing the distal internal carotid artery. 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 Associated mural ulcer appears slightly larger. Dissection flap is causing unchanged moderate to se francesca stenosis. No significant propogation to involve a longer segment. - Stable right carotid bulb calcified atheromatous plaque. -Atherosclerotic ulceration along aortic arch has progressed (). -AC A's arise from left ICA. -Scattered anterior and posterior circulation vessel narrowing. No hemodynamically significant stenosis, occlusion, vasculopathy, aneurysm, or vascular malformation. -Mucosal thickening right maxillary sinus. HEMATOLOGY Platelet 228 K/CMM 133 - 450 10/20 [facility] [address] [place] [address] HEMATOLOGY MPV 9.5 fL 7.4 - 10.4 10/20 [facility] [address] [place] [address] HEMATOLOGY MCHC 34.2 g/dL 32.0 - 10/20 [facility] 36.0 [facility] HEMATOLOGY RDW 14.2 % 11.5 - 10/20 14.5 /2013 [facility] HEMATOLOGY MCV 88.2 fL 80.0 - 10/20 94.0 /2013 [facility] HEMATOLOGY Hct 33.7 % 42.0 - 10/20 54.0 [facility] HEMATOLOGY Hgb 11.5 g/dL 14.0 - 10/20 18.0 /2013 [facility] HEMATOLOGY RBC 3.82 M/CMM 4.70 - 10/20 6.10 [facility] HEMATOLOGY MCH 30.2 pg 27.0 - 10/20 31.0 [facility] HEMATOLOGY WBC 8.3 K/CMM 3.7 - 10.4 10/20 [facility] HEMATOLOGY Monocytes 11.5 % 2.0 - 12.0 10/20 [facility] HEMATOLOGY Eosinophils 8.7 % 0.0 - 4.0 10/20 [facility] HEMATOLOGY Lymphocytes 15.2 % 20.0 - 10/20 40.0 [facility] HEMATOLOGY Segs 63.9 % 45.0 - 10/20 75.0 [facility] HEMATOLOGY Lymphocytes 1.3 K/CMM 1.0 - 5.5 10/20 [facility] HEMATOLOGY Monocytes # 0.9 K/CMM 0.0 - 0.8 10/20 [facility] HEMATOLOGY Eosinophils 0.7 K/CMM 0.0 - 0.5 10/20 [facility] HEMATOLOGY Basophils 0.7 % 0.0 - 1.0 10/20 [facility] HEMATOLOGY Basophils # 0.1 K/CMM 0.0 - 0.2 10/20 [facility] HEMATOLOGY Segs-Bands # 5.3 K/CMM 1.5 - 8.1 10/20 [facility] ELECTROLYT CO2 27 meq/L 24 - 32 10/19 [facility] ELECTROLYT Calcium Lvl 8.9 mg/dL 8.5 - 10.5 10/19 [facility] ELECTROLYT AGAP 11.6 meq/L 10.0 - 10/19 [facility] ES 20.0 [facility] ELECTROLYT Chloride Lvl 105 meq/L 95 - 109 10/19 [facility] ELECTROLYT eGFR 75 10/19 1Result Comment: The eGFR is calculated using the CKD-EPI formula. In most young, healthy individuals the eGFR will be >90 mL/ min/1.73m2. The eGFR declines with age. An eGFR of 60-89 may be normal in [facility] mL/min/1 some populations, particularly the elderly, for whom the CKD-EPI formula has not been extensively validated. Use of the eGFR is not recommended in the following populations: [address] Individuals with unstable creatinine concentrations, including patients and those with serious co-morbid conditions. Patients with extremes in muscle mass or diet. The data above are obtained from the National Kidney Disease Education Program (NKDEP) which additionally recommends that when the eGFR is used in patients with extremes of body mass index for purposes of drug dosing, the eGFR should be multiplied by the estimated BMI. ELECTROLYT Glucose Lvl 104 mg/dL 70 - 99 10/19 3Interpretive Data: Adult reference range values reflect the clinical guidelines [facility] of the [place] [employer]. [facility] ELECTROLYT Sodium Lvl 140 meq/L 135 - 145 10/19 [facility] ELECTROLYT Creatinine 1.0 mg/dL 0.5 - 1.4 10/19 [facility] ELECTROLYT Potassium 3.6 meq/L 3.5 - 5.1 10/19 [facility] ELECTROLYT BUN 17 mg/dL 7 - 22 10/19 [facility]2013 [facility] CHEM PANEL eGFR 67 10/15 2Result Comment: The eGFR is calculated using the CKD-EPI formula. In most young, healthy individuals the eGFR will be >90 mL/ min/1.73m2. The eGFR declines with age. An eGFR of 60-89 may be normal in [facility] mL/min/1 some populations, particularly the elderly, for whom the CKD-EPI formula has not been extensively validated. Use of the eGFR is not recommended in the following populations: [address] Individuals with unstable creatinine concentrations, including patients and those with serious co-morbid conditions. Patients with extremes in muscle mass or diet. The data above are obtained from the National Kidney Disease Education Program (NKDEP) which additionally recommends that when the eGFR is used in patients with extremes of body mass index for purposes of drug dosing, the eGFR should be multiplied by the estimated BMI. CHEM PANEL Creatinine 1.1 mg/dL 0.5 - 1.4 10/15 [facility] CHEM PANEL Sodium Lvl 138 meq/L 135 - 145 10/15 [facility] CHEM PANEL Potassium 3.8 meq/L 3.5 - 5.1 10/15 [facility] CHEM PANEL BUN 19 mg/dL 7 - 22 10/15 [facility] CHEM PANEL Chloride Lvl 101 meq/L 95 - 109 10/15 [facility] CHEM PANEL Glucose Lvl 100 mg/dL 70 - 99 10/15 4Interpretive Data: Adult reference range values reflect the clinical guidelines of the [place] [employer]. [facility] CHEM PANEL CO2 29 meq/L 24 - 32 10/15 [facility] CHEM PANEL Calcium Lvl 8.7 mg/dL 8.5 - 10.5 10/15 [facility] CHEM PANEL AGAP 11.8 meq/L 10.0 - 10/15 20.0 [facility] HEMATOLOGY PT 18.0 s 12.0 - 10/15 14.7 [facility] HEMATOLOGY PTT 36.3 s 22.9 - 10/15 6Interpretive [facility] 35. Data: [facility] Range: 57 - 92 Seconds HEMATOLOGY INR 1.46 0.85 - 10/15 5Interpretive Data: RECOMMENDED RANGES FOR PROTIME INR: [facility] . 2.0-3.0 for most medical and surgical thromboembolic states. Medical 2.5-3.5 for artificial heart valves and recurrent embolism. Center INR SHOULD BE USED ONLY FOR PATIENTS ON STABLE ANTICOAGULANT THERAPY. HEMATOLOGY RBC 4.36 M/CMM 4.70 - 10/15 [place] 6.10 [facility] HEMATOLOGY Hgb 13.3 g/dL 14.0 - 10/15 18.0 [facility] HEMATOLOGY WBC 9.8 K/CMM 3.7 - 10.4 10/15 [facility] HEMATOLOGY MCH 30.5 pg 27.0 - 10/15 [place] 31.0 [facility] HEMATOLOGY MCV 88.8 fL 80.0 - 10/15 [place] 94.0 [facility] HEMATOLOGY Hct 38.7 % 42.0 - 10/15 [place] 54.0 /2013 [facility] HEMATOLOGY Platelet 180 K/CMM 133 - 450 10/15 [facility] HEMATOLOGY RDW 14.6 % 11.5 - 10/15 14.5 [facility] HEMATOLOGY MCHC 34.3 g/dL 32.0 - 10/15 36.0 /2013 [facility] HEMATOLOGY MPV 9.4 fL 7.4 - 10.4 10/15 [facility] HEMATOLOGY Basophils 0.4 % 0.0 - 1.0 10/15 [facility] HEMATOLOGY Monocytes # 1.0 K/CMM 0.0 - 0.8 10/15 [facility] HEMATOLOGY Segs-Bands # 6.6 K/CMM 1.5 - 8.1 10/15 [facility] HEMATOLOGY Eosinophils 0.6 K/CMM 0.0 - 0.5 10/15 [facility] HEMATOLOGY Lymphocytes 1.5 K/CMM 1.0 - 5.5 10/15 [facility] HEMATOLOGY Lymphocytes 15.2 % 20.0 - 10/15 [place] 40.0 [facility] HEMATOLOGY Segs 67.2 % 45.0 - 10/15 75.0 [facility] HEMATOLOGY Monocytes 10.6 % 2.0 - 12.0 10/15 [facility] HEMATOLOGY Eosinophils 6.6 % 0.0 - 4.0 10/15 [facility] URINE AND UA WBC null 0 - 5 10/14 [facility] URINE AND UA Bacteria Occasional None Seen 10/14 [facility] STOOL /HPF /HPF /2013 [facility] URINE AND UA Mucus Few /LPF None Seen 10/14 [facility] STOOL /LPF [facility] URINE AND UA Sq Epi Occasional Few /LPF 10/14 [facility] STOOL /LPF [facility] URINE AND UA Glucose Negative Negative 10/14 [facility] (10/14/13 10:44 AM) [place] URINE AND UA Protein Trace Negative 10/14 [facility] *ABN* Center (10/14/13 10:44 AM) URINE AND UA Ketones Negative Negative 10/14 [facility] *NA* Center (10/14/13 10:44 AM) URINE AND UA Bili Negative Negative 10/14 [facility] *NA* [place] (10/14/13 10:44 AM) URINE AND UA Blood Small Negative 10/14 [facility] [place] (10/14/13 10:44 AM) URINE AND UA 1.0 EU/dL 0.1 - 1.0 10/14 [facility] Urobilinogen /2013 [facility] URINE AND UA Nitrite Negative Negative 10/14 [facility] (10/14/13 10:44 AM) [place] URINE AND UA Leuk Est Small Negative 10/14 [facility] [place] (10/14/13 10:44 AM) URINE AND UA Color Yellow Yellow 10/14 [facility] [place] (10/14/13 10:44 AM) URINE AND UA Turbidity Slight Cloudy Clear 10/14 [facility] (10/14/13 10:44 AM) [place] URINE AND UA Spec Grav 1.020 <=1.030 10/14 [facility] URINE AND UA pH 7.0 5.0 - 8.0 10/14 [facility] ELECTROLYT AGAP 13.9 meq/L 10.0 - 10/14 [facility] ES 20.0 [facility] ELECTROLYT eGFR 75 10/14 1Result Comment: The eGFR is calculated using the CKD-EPI formula. In most young, healthy individuals the eGFR will be >90 mL/ min/1.73m2. The eGFR declines with age. An eGFR of 60-89 may be normal in [facility] ES mL/min/1.7 some populations, particularly the elderly, for whom the CKD-EPI formula has not been extensively validated. Use of the eGFR is not recommended in the following populations: [address] Individuals with unstable creatinine concentrations, including patients and those with serious co-morbid conditions. Patients with extremes in muscle mass or diet. The data above are obtained from the National Kidney Disease Education Program (NKDEP) which additionally recommends that when the eGFR is used in patients with extremes of body mass index for purposes of drug dosing, the eGFR should be multiplied by the estimated BMI. ELECTROLYT Creatinine 1.0 mg/dL 0.5 - 1.4 10/14 [facility] ES Lvl [facility] ELECTROLYT BUN 22 mg/dL 7 - 10/14 [facility] ELECTROLYT Glucose Lvl 104 mg/dL 70 - 99 10/14 4Interpretive Data: Adult reference range values reflect the clinical guidelines of the [place] [employer]. [facility] ELECTROLYT Calcium Lvl 9.1 mg/dL 8.5 - 10.5 10/14 [facility] ELECTROLYT Chloride Lvl 106 meq/L 95 - 109 10/14 [facility] ELECTROLYT Sodium Lvl 140 meq/L 135 - 145 10/14 [facility] ELECTROLYT CO2 24 meq/L 24 - 32 10/14 [facility] ELECTROLYT Potassium 3.9 meq/L 3.5 - 5.1 10/14 [facility] HEMATOLOGY WBC 10.8 K/CMM 3.7 - 10.4 10/14 [facility] HEMATOLOGY RBC 4.50 M/CMM 4.70 - 10/14 6.10 [facility] HEMATOLOGY Hgb 13.6 g/dL 14.0 - 10/14 18. [facility] HEMATOLOGY Hct 39.7 % 42.0 - 10/14 54.0 [facility] HEMATOLOGY MCV 88.4 fL 80.0 - 10/14 94.0 [facility] HEMATOLOGY MCH 30.2 pg 27.0 - 10/14 31.0 [facility] HEMATOLOGY MCHC 34.2 g/dL 32.0 - 10/14 36.0 [facility] HEMATOLOGY RDW 14.8 % 11.5 - 10/14 14. [facility] HEMATOLOGY Platelet 196 K/CMM 133 - 450 10/14 [facility] HEMATOLOGY MPV 9.3 fL 7.4 - 10.4 10/14 [facility] HEMATOLOGY Eosinophils 0.6 K/CMM 0.0 - 0.5 10/14 [facility] HEMATOLOGY Monocytes # 1.0 K/CMM 0.0 - 0.8 10/14 [facility] HEMATOLOGY Eosinophils 5.2 % 0.0 - 4.0 10/14 [facility] HEMATOLOGY Lymphocytes 1.3 K/CMM 1.0 - 5.5 10/14 [facility] HEMATOLOGY Segs-Bands # 7.9 K/CMM 1.5 - 8.1 10/14 [facility] HEMATOLOGY Basophils 0.4 % 0.0 - 1.0 10/14 [facility] HEMATOLOGY Monocytes 9.5 % 2.0 - 12.0 10/14 [facility] HEMATOLOGY Segs 73.0 % 45.0 - 10/14 75.0 [facility] HEMATOLOGY Lymphocytes 11.9 % 20.0 - 10/14 40.0 [facility] CHEM PANEL Phosphorus 2.8 mg/dL 2.5 - 4.5 10/13 [facility] CHEM PANEL Magnesium 1.7 mg/dL 1.8 - 2.4 10/13 [facility] ELECTROLYT AGAP 17.5 meq/L 10.0 - 10/13 [facility] . [facility] ELECTROLYT eGFR 60 10/13 2Result Comment: The eGFR is calculated using the CKD-EPI formula. In most young, healthy individuals the eGFR will be >90 mL/ min/1.73m2. The eGFR declines with age. An eGFR of 60-89 may be normal in [facility] mL/min/1. some populations, particularly the elderly, for whom the CKD-EPI formula has not been extensively validated. Use of the eGFR is not recommended in the following populations: [address] Individuals with unstable creatinine concentrations, including patients and those with serious co-morbid conditions. Patients with extremes in muscle mass or diet. The data above are obtained from the National Kidney Disease Education Program (NKDEP) which additionally recommends that when the eGFR is used in patients with extremes of body mass index for purposes of drug dosing, the eGFR should be multiplied by the estimated BMI. ELECTROLYT Calcium Lvl 9.2 mg/dL 8.5 - 10.5 10/13 [facility] ELECTROLYT CO2 21 meq/L 24 - 32 10/13 [facility] ELECTROLYT Creatinine 1.2 mg/dL 0.5 - 1.4 10/13 [facility] ELECTROLYT BUN 25 mg/dL 7 - 22 10/13 [facility] ELECTROLYT Glucose Lvl 97 mg/dL 70 - 99 10/13 5Interpretive Data: Adult reference range values reflect the clinical guidelines of the [place] [employer]. [facility] ELECTROLYT Chloride Lvl 106 meq/L 95 - 109 10/13 [facility] ELECTROLYT Potassium 3.5 meq/L 3.5 - 5.1 10/13 [facility] ES Lvl [facility] ELECTROLYT Sodium Lvl 141 meq/L 135 - 145 10/13 [facility] HEMATOLOGY PT 18.6 s 12.0 - 10/13 14.7 [facility] HEMATOLOGY INR 1.52 0.85 - 10/13 8Interpretive Data: RECOMMENDED RANGES FOR PROTIME INR: [facility] . 2.0-3.0 for most medical and surgical thromboembolic states. Medical 2.5-3.5 for artificial heart valves and recurrent embolism. Center INR SHOULD BE USED ONLY FOR PATIENTS ON STABLE ANTICOAGULANT THERAPY. HEMATOLOGY PTT 35.1 s 22.9 - 10/13 11Interpretiv [facility] 35.8 e Data: [facility] Therapeutic Range: 57 - 92 Seconds HEMATOLOGY MPV 8.9 fL 7.4 - 10.4 10/13 [facility] HEMATOLOGY Platelet 198 K/CMM 133 - 450 10/13 [facility] HEMATOLOGY RDW 14.6 % 11.5 - 10/13 14. [facility] HEMATOLOGY MCHC 34.5 g/dL 32.0 - 10/13 36.0 [facility] HEMATOLOGY MCH 30.5 pg 27.0 - 10/13 31.0 [facility] HEMATOLOGY MCV 88.5 fL 80.0 - 10/13 94.0 [facility] HEMATOLOGY Hgb 14.1 g/dL 14.0 - 10/13 18.0 [facility] HEMATOLOGY Hct 40.8 % 42.0 - 10/13 54.0 [facility] HEMATOLOGY RBC 4.61 M/CMM 4.70 - 10/13 6.10 [facility] HEMATOLOGY WBC 10.6 K/CMM 3.7 - 10.4 10/13 [facility] HEMATOLOGY Segs 67.5 % 45.0 - 10/13 75.0 [facility] HEMATOLOGY Eosinophils 8.5 % 0.0 - 4.0 10/13 [facility] HEMATOLOGY Basophils 0.4 % 0.0 - 1.0 10/13 [facility] HEMATOLOGY Segs-Bands # 7.1 K/CMM 1.5 - 8.1 10/13 [facility] HEMATOLOGY Monocytes # 1.0 K/CMM 0.0 - 0.8 10/13 [facility] HEMATOLOGY Eosinophils 0.9 K/CMM 0.0 - 0.5 10/13 [facility] HEMATOLOGY Lymphocytes 1.5 K/CMM 1.0 - 5.5 10/13 [facility] HEMATOLOGY Lymphocytes 14.0 % 20.0 - 10/13 40.0 [facility] HEMATOLOGY Monocytes 9.6 % 2.0 - 12.0 10/13 [facility] HEMATOLOGY PT 17.1 s 12.0 - 10/12 [facility] 14. [facility] HEMATOLOGY INR 1.41 0.85 - 10/12 9Interpretive Data: RECOMMENDED RANGES FOR PROTIME INR: [facility] 03.05 2.0-3.0 for most medical and surgical thromboembolic states. Medical 2.5-3.5 for artificial heart valves and recurrent embolism. Center INR SHOULD BE USED ONLY FOR PATIENTS ON STABLE ANTICOAGULANT THERAPY. HEMATOLOGY PTT 69.2 s 22.9 - 10/12 12Interpretiv [facility] 35.8 e Data: [facility] Therapeutic Range: 57 - 92 Seconds CHEM PANEL eGFR 67 10/11 3Result Comment: The eGFR is calculated using the CKD-EPI formula. In most young, healthy individuals the eGFR will be >90 mL/ min/1.73m2. The eGFR declines with age. An eGFR of 60-89 may be normal in [facility] mL/min/1 some populations, particularly the elderly, for whom the CKD-EPI formula has not been extensively validated. Use of the eGFR is not recommended in the following populations: [place] [address] Center Individuals with unstable creatinine concentrations, including patients and those with serious co-morbid conditions. Patients with extremes in muscle mass or diet. The data above are obtained from the National Kidney Disease Education Program (NKDEP) which additionally recommends that when the eGFR is used in patients with extremes of body mass index for purposes of drug dosing, the eGFR should be multiplied by the estimated BMI. CHEM PANEL Calcium Lvl 8.9 mg/dL 8.5 - 10.5 10/11 [facility] CHEM PANEL CO2 27 meq/L 24 - 32 10/11 [facility] CHEM PANEL Chloride Lvl 105 meq/L 95 - 109 10/11 [facility] CHEM PANEL Potassium 3.4 meq/L 3.5 - 5.1 10/11 [facility] CHEM PANEL Sodium Lvl 140 meq/L 135 - 145 10/11 [facility] CHEM PANEL Creatinine 1.1 mg/dL 0.5 - 1.4 10/11 [facility] CHEM PANEL BUN 16 mg/dL 7 - 22 10/11 [facility] CHEM PANEL Glucose Lvl 96 mg/dL 70 - 99 10/11 6Interpretive Data: Adult reference range values reflect the clinical guidelines of the [place] [employer]. [facility] CHEM PANEL AGAP 11.4 meq/L 10.0 - 10/11 . [facility] CHEM PANEL Phosphorus 2.6 mg/dL 2.5 - 4.5 10/11 [facility] CHEM PANEL Magnesium 1.8 mg/dL 1.8 - 2.4 10/11 [facility] HEMATOLOGY RBC 4.64 M/CMM 4.70 - 10/11 6.10 [facility] HEMATOLOGY WBC 9.0 K/CMM 3.7 - 10.4 10/11 [facility] HEMATOLOGY Platelet 193 K/CMM 133 - 450 10/11 [facility] HEMATOLOGY RDW 14.7 % 11.5 - 10/11 14.5 [facility] HEMATOLOGY MPV 9.1 fL 7.4 - 10.4 10/11 [facility] HEMATOLOGY Hgb 14.0 g/dL 14.0 - 10/11 18.0 [facility] HEMATOLOGY MCV 87.6 fL 80.0 - 10/11 94.0 [facility] HEMATOLOGY Hct 40.7 % 42.0 - 10/11 54.0 [facility] HEMATOLOGY MCHC 34.3 g/dL 32.0 - 10/11 36.0 [facility] HEMATOLOGY MCH 30.1 pg 27.0 - 10/11 [place] 31.0 /2013 [facility] HEMATOLOGY Eosinophils 1.0 K/CMM 0.0 - 0.5 10/11 [place] # [facility] HEMATOLOGY Basophils # 0.1 K/CMM 0.0 - 0.2 10/11 [facility] HEMATOLOGY Monocytes # 0.6 K/CMM 0.0 - 0.8 10/11 [facility] HEMATOLOGY Lymphocytes 2.0 K/CMM 1.0 - 5.5 10/11 [place] # [facility] HEMATOLOGY Eosinophils 10.6 % 0.0 - 4.0 10/11 [facility] HEMATOLOGY Segs-Bands # 5.4 K/CMM 1.5 - 8.1 10/11 [facility] HEMATOLOGY Basophils 0.6 % 0.0 - 1.0 10/11 [facility] HEMATOLOGY Lymphocytes 21.9 % 20.0 - 10/11 40.0 [facility] HEMATOLOGY Segs 59.8 % 45.0 - 10/11 75.0 [facility] HEMATOLOGY Monocytes 7.1 % 2.0 - 12.0 10/11 [facility] HEMATOLOGY PT 16.2 s 12.0 - 10/11 14.7 [facility] HEMATOLOGY INR 1.32 0.85 - 10/11 10Interpretive Data: RECOMMENDED RANGES FOR PROTIME INR: [facility] 1.17 2.0-3.0 for most medical and surgical thromboembolic states. Medical 2.5-3.5 for artificial heart valves and recurrent embolism. Center INR SHOULD BE USED ONLY FOR PATIENTS ON STABLE ANTICOAGULANT THERAPY. HEMATOLOGY PTT 64.9 s 22.9 - 10/11 13Interpretiv [facility] 35.8 e Data: [facility] Therapeutic Range: 57 - 92 Seconds CHEM PANEL Phosphorus 2.5 mg/dL 2.5 - 4.5 10/10 [facility] CHEM PANEL Magnesium 1.7 mg/dL 1.8 - 2.4 10/10 [facility] Lvl [facility] HEMATOLOGY Basophils # 0.1 K/CMM 0.0 - 0.2 10/10 [facility] CARDIAC Troponin-I null 0.00 - 10/09 [facility] ENZYMES 0.40 [facility] DRUG U Cannab Scr Negative Negative 10/09 [facility] SCREEN Medical *NA* Center (10/08/13 7:48 PM) DRUG U Opiate Scr Negative Negative 10/09 [place] SCREEN Medical *NA* [place] (10/08/13 7:48 PM) DRUG U Keli Scr Negative Negative 10/09 [place] SCREEN [facility] *NA* [place] (10/08/13 7:48 PM) DRUG U Cocaine Negative Negative 10/09 [place] SCREEN Scr Medical *NA* [place] (10/08/13 7:48 PM) DRUG U Benzodia Negative Negative 10/09 [place] SCREEN Scr Medical *NA* [place] (10/08/13 7:48 PM) DRUG U Amph Scr Negative Negative 10/09 [place] SCREEN [facility] *NA* [place] (10/08/13 7:48 PM) DRUG U Phencyc Negative Negative 10/09 [place] SCREEN [facility] *NA* [place] (10/08/13 7:48 PM) DRUG UDS Note See Note 7 10/09 7Interpretive Data: Drugs reported as positive have not been confirmed by a second method and should be used for medical purposes only. To order Medical *NA* confirmation, contact laboratory. [place] (10/08/13 7:48 PM) note: Below are cut-off concentrations for all urine drugs of abuse performed in the laboratory. Some drugs listed in the table may not be included in this panel. Description Cut-off concentration Amphetamine 1000 ng/mL Barbiturates 200 ng/mL Benzodiazepines 300 ng/mL Cocaine metabolites 300 ng/mL Opiates 300 ng/mL Phencyclidine 25 ng/mL Propoxyphene 300 ng/mL Marijuana metabolites 50 ng/mL Methadone 300 ng/mL Urine alcohol 20 mg/dL URINE AND UA 0.2 EU/dL 0.1 - 1.0 10/09 [facility] STOOL Urobilinogen [facility] URINE AND UA Blood Negative Negative 10/09 [place] STOOL [facility] (10/08/13 7:48 PM) Center URINE AND UA Nitrite Negative Negative 10/09 [facility] STOOL [facility] (10/08/13 7:48 PM) Center URINE AND UA Leuk Est Negative Negative 10/09 [facility] Medical (10/08/13 7:48 PM) [place] URINE AND UA Sq Epi None Seen Few 10/09 [facility] (10/08/13 7:48 PM) [place] URINE AND UA Protein Negative Negative 10/09 [facility] (10/08/13 7:48 PM) [place] URINE AND UA pH 6.0 5.0 - 8.0 10/09 [facility] URINE AND UA Spec Grav <=1.005 <=1.030 10/09 [facility] STOOL
*NA*< Medical br/>( 14 7:48 PM) URINE AND UA Bili Negative Negative 10/09 [facility] Medical *NA* [place] (10/08/13 7:48 PM) URINE AND UA Glucose Negative Negative 10/09 [facility] (10/08/13 7:48 PM) [place] URINE AND UA Ketones Negative Negative 10/09 [facility] Medical *NA* [place] (10/08/13 7:48 PM) URINE AND UA Color Yellow Yellow 10/09 Medical *NA* [place] (10/08/13 7:48 PM) URINE AND UA Turbidity Clear Clear 10/09 [facility] [facility] (10/08/13 7:48 PM) [place] CARDIAC Troponin-I null 0.00 - 10/08 [facility] ENZYMES 0.40 [facility] CARDIAC Total CK 66 unit/L 12 - 191 10/08 [facility] ENZYMES [facility] CHEM PANEL Alk Phos 77 unit/L 39 - 136 10/08 [facility] CHEM PANEL Bili Total 0.6 mg/dL 0.2 - 1.3 10/08 [facility] CHEM PANEL Total 7.3 g/dL 6.4 - 8.4 10/08 [facility] Protein [facility] CHEM PANEL Albumin Lvl 3.3 g/dL 3.5 - 5.0 10/08 [facility] CHEM PANEL ALT 19 unit/L 0 - 65 10/08 [facility] CHEM PANEL AST 10 unit/L 0 - 37 10/08 [facility] CHEM PANEL Globulin 4.0 g/dL 2.0 - 4.0 10/08 [facility] CHEM PANEL A/G Ratio 0.8 0.7 - 1.6 10/08 [facility] CHEM PANEL B/C Ratio 18 6 - 25 10/08 [facility] LIPIDS VLDL 27 10/08 [facility] LIPIDS LDL 127 mg/dL <=99 mg/dL 10/08 (Calculated) [facility] LIPIDS Chol 185 mg/dL <=199 10/08 [facility] mg/dL [facility] LIPIDS HDL 31 mg/dL >=61 mg/dL 10/08 [facility] LIPIDS Trig 133 mg/dL <=149 10/08 [facility] mg/dL [facility] LIPIDS CHD Risk 5.97 4.00 - 10/08 [facility] 7. [facility] SPECIAL Hgb A1C 6.2 % <=5.6 % 10/08 [facility] Vital Signs Vital Sign Value Date Comments Source Respitory Rate 30 10/25/2017 [facility] Systolic (mm Hg) 121 10/25/2017 [facility] Diastolic (mm Hg) 77 10/25/2017 [facility] Respitory Rate 41 10/25/2017 [facility] Systolic (mm Hg) 111 10/25/2017 [facility] Diastolic (mm Hg) 77 10/25/2017 [facility] Respitory Rate 28 10/25/2017 [facility] Systolic (mm Hg) 119 10/25/2017 [facility] Diastolic (mm Hg) 75 10/25/2017 [facility] Temperature Oral (F) 97.9 F 10/25/2017 [facility] Temperature Oral (F) 97.0 F 10/25/2017 [facility] Temperature Oral (F) 98.3 F 10/25/2017 [facility] Height 177.8 cm 10/24/2017 [facility] Weight 104.545 10/24/2017 [facility] BMI Calculated 33.07 10/24/2017 [facility] Heart Rate 63 10/24/2017 [facility] Heart Rate 59 10/24/2017 [facility] Heart Rate 57 10/24/2017 [facility] Temperature Oral (F) 97.6 F 06/04/2017 [facility] Heart Rate 62 06/04/2017 [facility] Respitory Rate 18 06/04/2017 [facility] Systolic (mm Hg) 112 06/04/[address] [facility] Diastolic (mm Hg) 66 06/04/2017 [facility] Height 70 06/03/[address] [facility] Weight 215 06/03/2017 [facility] Weight 104.545 03/14/2014 [facility] BMI Calculated 33.07 03/14/2014 [facility] Height 177.8 cm 03/14/2014 [facility] Diastolic (mm Hg) 91 03/14/2014 [facility] Respitory Rate 18 03/14/2014 [facility] Systolic (mm Hg) 139 03/14/2014 [facility] Temperature Oral (F) 98.3 F 03/14/2014 [facility] Heart Rate 78 03/14/2014 [facility] Heart Rate 82 03/14/2014 [facility] Respitory Rate 18 03/14/2014 [facility] Temperature Oral (F) 98.7 F 03/14/2014 [facility] Systolic (mm Hg) 141 03/14/2014 [facility] Diastolic (mm Hg) 96 03/14/2014 [facility] Temperature Oral (F) 98.6 F 03/14/2014 [facility] Diastolic (mm Hg) 95 03/14/2014 [facility] Respitory Rate 19 03/14/2014 [facility] Systolic (mm Hg) 164 03/14/2014 [facility] Heart Rate 66 03/14/2014 [facility] Height 177.8 cm 03/13/2014 [facility] BMI Calculated 33.07 03/13/2014 [facility] Weight 104.545 03/13/2014 [facility] Height 177.8 cm 03/12/2014 [facility] Weight 104.545 03/12/2014 [facility] BMI Calculated 33.07 03/12/2014 [facility] Systolic (mm Hg) 117 10/21/2013 [facility] Diastolic (mm Hg) 76 10/21/2013 [facility] Respitory Rate 20 10/21/2013 [facility] Temperature Oral (F) 98.6 F 10/21/2013 [facility] Heart Rate 68 10/21/2013 [facility] Temperature Oral (F) 98.0 F 10/21/2013 [facility] Diastolic (mm Hg) 57 10/21/2013 [facility] Respitory Rate 20 10/21/2013 [facility] Systolic (mm Hg) 102 10/21/2013 [facility] Heart Rate 62 10/21/2013 [facility] Heart Rate 83 10/20/2013 [facility] Temperature Oral (F) 98.1 F 10/20/2013 [facility] Diastolic (mm Hg) 51 10/20/2013 [facility] Systolic (mm Hg) 100 10/20/2013 [facility] Respitory Rate 20 10/19/2013 [facility] Height 177.8 cm 10/14/2013 [facility] Weight 175 10/14/2013 [facility] BMI Calculated 55.36 10/14/2013 [facility] Temperature Oral (F) 97.1 F 10/14/2013 [facility] Diastolic (mm Hg) 82 10/14/2013 [facility] Systolic (mm Hg) 110 10/14/2013 [facility] Respitory Rate 16 10/14/2013 [facility] Heart Rate 87 10/14/2013 [facility] Systolic (mm Hg) 113 10/14/2013 [facility] Diastolic (mm Hg) 79 10/14/2013 [facility] Respitory Rate 20 10/14/2013 [facility] Temperature Oral (F) 97.9 F 10/14/2013 [facility] Heart Rate 77 10/14/2013 [facility] Diastolic (mm Hg) 62 10/14/2013 [facility] Systolic (mm Hg) 105 10/14/2013 [facility] Temperature Oral (F) 98.0 F 10/14/2013 [facility] Heart Rate 67 10/14/2013 [facility] Respitory Rate 14 10/14/2013 [facility] Weight 100 10/09/2013 [facility] Weight 100 10/08/2013 [facility] Height 175.26 cm 10/08/2013 [facility] BMI Calculated 32.56 10/08/2013 [facility] Weight 100 10/08/2013 [facility] BMI Calculated 31.63 10/08/2013 [facility] Height 177.8 cm 10/08/2013 [facility] Encounters Location Location Encounter Encounter Reason Attending ADM DC Status Source Details Type Number For Provider Date Date Visit [facility] [id number] Philip 10/08 10/14 [facility] Amado [facility] /2013 [facility] Inpatient [id number] Ind[facility]14 [facility] [id number] [facility] [id number] 04[facility]14 04/[address] [facility] [id number] 06[facility]03 06/[address] [facility] In[facility] [id number] Chuy 10[facility]23 10/25 [facility] /2017 [facility] Procedures Procedure Code Date Perfomer Comments Source Abdomen & Pelvis W [id number] [facility] [place] [address] [facility] [place] [facility]domen & Pelvis W [id number] [facility] [place] Vein procedure [id number] [id number] [facility] Hernia repair [id number] [facility] Cataract surgery [id number] [facility] Cholecystectomy [id number] [facility]
--- OUTSIDE RECORDS SUMMARY | 2018-07-14 12:26 | XMS REPORT | Summary of Care ---
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 (Final) - 11/03/17 Hemiplegia and hemiparesis following cerebral infarction affecting left non- dominant side (Final) - Other primary thrombophilia (Final) - Hyperlipidemia, unspecified (Final) - Personal history of other venous thrombosis and embolism (Final) - Migraine with aura, not intractable, without status migrainosus (Final) - Peripheral vascular disease, unspecified (Final) - Personal history of nicotine dependence (Final) - NIHSS score 4 (Final) - Chronic kidney disease, stage 3 (moderate) (Final) - Obesity, unspecified (Final) - Benign prostatic hyperplasia without lower urinary tract symptoms (Final) - Personal history of pulmonary embolism (Final) - Hypertensive chronic kidney disease with stage 1 through stage 4 chronic kidney disease, or unspecified chronic kidney disease (Final) - 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 (Final) - Body mass index (BMI) 33.0-33.9, adult (Final) - Coma scale, best motor response, obeys commands, at arrival to emergency department (Final) - Coma scale, eyes open, spontaneous, at arrival to emergency department (Final) - Coma scale, best verbal response, oriented, at arrival to emergency department ( Final) - Discharge Disposition: Home Care with Home Health Attending Physician: Padmini Lopez MD Admitting Physician: Padmini Lopez MD Referring Physician: Chuy Kessler MD Vital Signs Most recent to oldest [Reference 1 2 3 Range]: Height 177.8 cm (10/24/17 5:30 AM) Temperature Oral [96.4-99.1 97.9 DegF 97.0 DegF 98.3 DegF DegF] (10/25/17 11:02 AM) (10/25/17 7:29 AM) (10/25/17 3:51 AM) Blood Pressure [90-140/60-90 121/77 mmHg 111/77 mmHg 119/75 mmHg mmHg] (10/25/17 2:00 PM) (10/25/17 1:00 PM) (10/25/17 12:00 PM) Respiratory Rate [14-20 BRMIN] 30 BRMIN 41 BRMIN 28 BRMIN *HI* *HI* *HI* (10/25/17 2:00 PM) (10/25/17 1:00 PM) (10/25/17 12:00 PM) Peripheral Pulse Rate [60-100 63 bpm 59 bpm 57 bpm bpm] (10/24/17 5:00 AM) *LOW* *LOW* (10/24/17 4:57 AM) (10/24/17 1:20 AM) Weight 104.545 kg (10/24/17 5:30 AM) Body Mass Index 33.07 m2 (10/24/17 5:30 AM) Problem List Condition Effective Dates Status Health Status Informant Depression(Confirmed) Resolved HLD (hyperlipidemia)(Confirmed) Resolved Hypertension(Confirmed) Resolved Migraine(Confirmed) Resolved PVD (peripheral vascular Resolved disease)(Confirmed) Stroke(Confirmed) 10/09/05 Resolved Allergies, Adverse Reactions, Alerts Substance Reaction Severity Status aspirin Stomach upset Active Lipitor1, 2 2 Active 1Tolerates [id number], vomiting, headache, and an "itchy" facial rash Medications Benadryl 25 mg, Route: IVP, ONCE, Dosing Weight 104.545, kg, Priority: STAT, Start date: 10/23/17 17:42:00 CDT, Stop date: 10/23/17 17:42:00 CDT Start Date: 10/23/17 Stop Date: 10/23/17 Status: Completedbenzonatate 100 mg oral capsule 100 mg=1 cap, PO, TID, PRN cough, do not crush or chew, # 30 cap, 0 Refill(s) Start Date: 10/24/17 Stop Date: 11/03/17 Status: Orderedchlorthalidone 25 mg oral tablet 25 mg=1 tab, PO, Daily, # 90 tab, 1 Refill(s) Start Date: 10/24/17 Status: Orderedclopidogrel 75 mg oral tablet 75 mg=1 tab, PO, Daily, # 30 tab, 3 Refill(s), Pharmacy: [facility] Start Date: 10/25/17 Status: Ordereddocusate 100 mg, 1 cap, Route: PO, Drug form: CAP, Q12H, Dosing Weight 104.545, kg, Start date: 10/24/17 9:00:00 CDT, Duration: 30 day, Stop date: 11/22/17 21:00: 00 CDT Notes: (Same as: Colace) (Do Not Crush) Start Date: 10/24/17 Stop Date: 10/25/17 Status: Discontinuedfinasteride 5 mg, 1 tab, Route: PO, Drug form: TAB, Daily, Dosing Weight 104.545, kg, Start date: 10/24/17 9:00:00 CDT, Duration: 30 day, Stop date: 11/22/17 9:00:00 CDT Notes: (Same as: Proscar) "Do Not Crush"Women of childbearing age should not touch or handle broken tablets Start Date: 10/24/17 Stop Date: 10/25/17 Status: Discontinuedfinasteride 5 mg oral tablet 5 mg=1 tab, PO, Daily, # 90 tab, 1 Refill(s) Start Date: 10/24/17 Status: Orderedfondaparinux 7.5 mg, 0.6 mL, Route: SUB-Q, Drug form: SOLN, Daily, Dosing Weight 104.545, kg , Start date: 10/24/17 9:00:00 CDT, Duration: 30 day, Stop date: 11/22/17 9:00: 00 CDT Notes: (Same as Arixtra) Passthrough med Start Date: 10/24/17 Stop Date: 10/25/17 Status: Discontinuedfondaparinux 7.5 mg/0.6 mL subcutaneous solution 7.5 mg=0.6 ml, SUB-Q, Daily, # 3 ml, 0 Refill(s) Start Date: 10/24/17 Stop Date: 10/29/17 Status: Orderedheparin 5,000 unit, 1 mL, Route: SUB-Q, Drug form: INJ, Q8H, Dosing Weight 104.545, kg, (For patients weighing < 100 kg)., Start date: 10/24/17 8:00:00 CDT, Duration : 30 day, Stop date: 11/23/17 0:00:00 CDT Notes: porcine heparin Start Date: 10/24/17 Stop Date: 10/24/17 Status: Canceledmagnesium sulfate 2 gm, 50 mL, Route: IVPB, Drug form: INJ, ONCE, Dosing Weight 104.545, kg, Total dose=2 gm, Start date: 10/24/17 15:46:00 CDT, Stop date: 10/24/17 15:46: 00 CDT Notes: WASTE: F/P - Sink; E - Municipal Trash Bin Start Date: 10/24/17 Stop Date: 10/24/17 Status: CompletedNS (Bolus) IV 500 mL, 500 ml/hr, Infuse Over: 1 hr, Route: IV, 500, Drug form: INJ, ONCE, Priority: STAT, Dosing Weight 104.545 kg, Start date: 10/24/17 15:46:00 CDT, Stop date: 10/24/17 15:46:00 CDT Start Date: 10/24/17 Stop Date: 10/24/17 Status: CompletedPlavix 75 mg, 1 tab, Route: PO, Drug form: TAB, Daily, Dosing Weight 104.545, kg, Priority: NOW, Start date: 10/24/17 14:40:00 CDT, Duration: 30 day, Stop date: 11/23/17 9:00:00 CDT Notes: (Same As: Plavix) Start Date: 10/24/17 Stop Date: 10/25/17 Status: DiscontinuedPlavix 75 mg, Route: PO, Drug form: TAB, Daily, Dosing Weight 104.545, kg, Start date: 10/25/17 9:00:00 CDT, Duration: 30 day, Stop date: 11/23/17 9:00:00 CDT Start Date: 10/25/17 Stop Date: 10/24/17 Status: Canceledpotassium chloride 20 mEq/15 mL oral liquid 40 mEq, 30 mL, Route: PO, Drug form: LIQ, ONCE, Dosing Weight 104.545, kg, Start date: 10/24/17 8:41:00 CDT, Stop date: 10/24/17 8:41:00 CDT Notes: (Same as: Potassium Chloride) Start Date: 10/24/17 Stop Date: 10/24/17 Status: Completedpotassium chloride 20 mEq/15 mL oral liquid 40 mEq, 30 mL, Route: PO, Drug form: LIQ, Daily, Dosing Weight 104.545, kg, Start date: 10/24/17 9:00:00 CDT, Duration: 30 day, Stop date: 11/22/17 9:00:00 CDT Start Date: 10/24/17 Stop Date: 10/24/17 Status: CanceledReglan 10 mg, Route: IVP, Drug form: INJ, ONCE, Dosing Weight 104.545, kg, Priority: STAT, Start date: 10/23/17 17:42:00 CDT, Stop date: 10/23/17 17:42:00 CDT Start Date: 10/23/17 Stop Date: 10/23/17 Status: CompletedSaline Flush 0.9% 10 ml, Route: IVP, Drug Form: INJ, Dosing Weight 104.545, kg, PRN, PRN Line Flush, Start date: 10/24/17 3:01:00 CDT, Duration: 30 day, Stop date: 11/23/17 3 :00:00 CDT Notes: (Same as: BD Posiflush) Start Date: 10/24/17 Stop Date: 10/25/17 Status: DiscontinuedSaline Flush 0.9% 10 ml, Route: IVP, Drug Form: INJ, Dosing Weight 104.545, kg, Q12H, Start date: 10/24/17 9:00:00 CDT, Duration: 30 day, Stop date: 11/22/17 21:00:00 CDT Notes: (Same as: BD Posiflush) Start Date: 10/24/17 Stop Date: 10/25/17 Status: Discontinuedspironolactone 25 mg, 1 tab, Route: PO, Drug form: TAB, Daily, Dosing Weight 104.545, kg, Start date: 10/24/17 9:00:00 CDT, Duration: 30 day, Stop date: 11/22/17 9:00:00 CDT Notes: (Same As: Aldactone) Start Date: 10/24/17 Stop Date: 10/25/17 Status: Discontinuedspironolactone 25 mg oral tablet 25 mg=1 tab, PO, Daily, # 90 tab, 1 Refill(s) Start Date: 10/24/17 Stop Date: 01/22/18 Status: Orderedtopiramate 25 mg, 1 tab, Route: PO, Drug form: TAB, Daily, Dosing Weight 104.545, kg, Start date: 10/25/17 9:00:00 CDT, Duration: 30 day, Stop date: 11/23/17 9:00:00 CDT Notes: (Same As: Topamax)"Do Not Crush" Start Date: 10/25/17 Stop Date: 10/25/17 Status: Discontinuedtopiramate 25 mg oral tablet 25 mg=1 tab, PO, Daily, # 30 tab, 2 Refill(s), Pharmacy: [facility] Start Date: 10/25/17 Stop Date: 01/23/18 Status: Orderedtramadol 50 mg oral tablet 50 mg=1 tab, PO, Q8H, PRN Pain, # 60 tab, 0 Refill(s) Start Date: 10/24/17 Stop Date: 11/13/17 Status: OrderedTylenol 975 mg, 3 tab, Route: PO, Drug form: TAB, ONCE, Dosing Weight 104.545, kg, Priority: STAT, Start date: 10/23/17 19:49:00 CDT, Stop date: 10/23/17 19:49:00 CDT Notes: Do not exceed 4 gm/day. (Same as: Tylenol) Start Date: 10/23/17 Stop Date: 10/23/17 Status: Completedvalproic acid 100 mg/mL intravenous solution + Sodium Chloride 0.9% IV 50 mL 500 mg, 5 mL, Route: IVPB, ONCE, Dosing Weight 104.545, kg, Start date: 15:46:00 CDT, Stop date: 10/24/17 15:46:00 CDT Notes: Dilute in at least 50ml D5W or NS. Infusion rate=20 mg/min(Same As: Depacon) Start Date: 10/24/17 Stop Date: 10/24/17 Status: Completedvenlafaxine 37.5 mg, 1 cap, Route: PO, Drug form: ERCAP, Every Other Day, Dosing Weight 104.545, kg, Start date:10/24/17 9:00:00 CDT, Duration: 30 day, Stop date: 11/21 9:00:00 CDT Notes: Do not open, crush, or chew.(Same As: Effexor XR) Start Date: 10/24/17 Stop Date: 10/24/17 Status: Discontinuedvenlafaxine 37.5 mg oral capsule, extended release 37.5 mg=1 cap, PO, Daily, # 90 cap, 0 Refill(s) Start Date: 10/24/17 Stop Date: 10/25/17 Status: DiscontinuedZofran 4 mg, 2 mL, Route: IVP, Drug form: INJ, ONCE, Dosing Weight 104.545, kg, Priority: STAT, Start date:10/24/17 3:10:00 CDT, Stop date: 10/24/17 3:10:00 CDT Notes: (Same as: Zofran) MEDICATION WASTE Product Size: 4 mgProduct Wasted: ___ mg Start Date: 10/24/17 Stop Date: 10/24/17 Status: Completed Results ELECTROLYTES Most recent to oldest [Reference Range]: 1 2 Sodium Lvl [135-145 mEq/L] 140 mEq/L 134 mEq/L (10/25/17 2:43 AM) *LOW* (10/24/17 4:55 AM) Potassium Lvl [3.5-5.1 mEq/L] 3.6 mEq/L 3.3 mEq/L (10/25/17 2:43 AM) *LOW* (10/24/17 4:55 AM) Chloride Lvl [95-109 mEq/L] 105 mEq/L 100 mEq/L (10/25/17 2:43 AM) (10/24/17 4:55 AM) CO2 [24-32 mEq/L] 25 mEq/L 26 mEq/L (10/25/17 2:43 AM) (10/24/17 4:55 AM) AGAP [10.0-20.0 mEq/L] 13.6 mEq/L 11.3 mEq/L (10/25/17 2:43 AM) (10/24/17 4:55 AM) CHEM PANEL Most recent to oldest [Reference Range]: 1 2 Creatinine Lvl [0.50-1.40 mg/dL] 1.25 mg/dL 1.51 mg/dL (10/25/17 2:43 AM) *HI* (10/24/17 4:55 AM) eGFR 56 mL/min/1.73m2 1 44 mL/min/1.73m2 2 *NA* *NA* (10/25/17 2:43 AM) (10/24/17 4:55 AM) BUN [7-22 mg/dL] 16 mg/dL 18 mg/dL (10/25/17 2:43 AM) (10/24/17 4:55 AM) B/C Ratio [6-25] 12 (10/24/17 4:55 AM) Glucose Lvl [70-99 mg/dL] 95 mg/dL 111 mg/dL (10/25/17 2:43 AM) *HI* (10/24/17 4:55 AM) Total Protein [6.4-8.4 g/dL] 7.9 g/dL (10/24/17 4:55 AM) Albumin Lvl [3.5-5.0 g/dL] 3.4 g/dL *LOW* (10/24/17 4:55 AM) Globulin [2.7-4.2 g/dL] 4.5 g/dL *HI* (10/24/17 4:55 AM) A/G Ratio [0.7-1.6] 0.8 (10/24/17 4:55 AM) Calcium Lvl [8.5-10.5 mg/dL] 8.5 mg/dL 9.5 mg/dL (10/25/17 2:43 AM) (10/24/17 4:55 AM) Phosphorus [2.5-4.5 mg/dL] 2.9 mg/dL (10/25/17 2:43 AM) Magnesium Lvl [1.8-2.4 mg/dL] 2.4 mg/dL (10/25/17 2:43 AM) ALT [0-65 unit/L] 23 unit/L (10/24/17 4:55 AM) AST [0-37 unit/L] 18 unit/L (10/24/17 4:55 AM) Alk Phos [39-136 unit/L] 82 unit/L (10/24/17 4:55 AM) Bili Total [0.2-1.3 mg/dL] 0.3 mg/dL (10/24/17 4:55 AM) 1Result Comment: The eGFR is calculated using the CKD-EPI formula. In most young , healthy individualsthe eGFR will be >90 mL/min/1.73m2. The eGFR declines with age. An eGFR of 60-89 may be normal insome populations, particularly the elderly, for whom the CKD-EPI formula has not been extensively validated. Use of the eGFR is not recommended in the following populations: Individuals with unstable creatinine concentrations, including patients and those with serious co-morbid conditions. Patients with extremes in muscle mass or diet. The data above are obtained from the National Kidney Disease Education Program ( NKDEP) which additionally recommends that when the eGFR is used in patients with extremes of body mass index for purposesof drug dosing, the eGFR should be multiplied by the estimated BMI.2Result Comment: The eGFR is calculated using the CKD-EPI formula. In most young, healthy individualsthe eGFR will be >90 mL/min/1.73m2. The eGFR declines with age. An eGFR of 60-89 may be normal insome populations, particularly the elderly, for whom the CKD-EPI formula has not been extensively validated. Use of the eGFR is not recommended in the following populations: Individuals with unstable creatinine concentrations, including patients and those with serious co-morbid conditions. Patients with extremes in muscle mass or diet. The data above are obtained from the National Kidney Disease Education Program ( NKDEP) which additionally recommends that when the eGFR is used in patients with extremes of body mass index for purposesof drug dosing, the eGFR should be multiplied by the estimated BMI.CARDIAC ENZYMES Most recent to oldest [Reference Range]: 1 2 Troponin-I [0.00-0.40 ng/mL] <0.02 ng/mL <0.02 ng/mL (10/24/17 9:21 AM) (10/24/17 4:55 AM) LIPIDS Most recent to oldest [Reference Range]: 1 2 CHD Risk [4.00-7.30] 5.93 (10/24/17 4:55 AM) Chol [<=199 mg/dL] 172 mg/dL (10/24/17 4:55 AM) Trig [<=149 mg/dL] 226 mg/dL *HI* (10/24/17 4:55 AM) HDL [>=61 mg/dL] 29 mg/dL *LOW* (10/24/17 4:55 AM) LDL (Calculated) [<=99 mg/dL] 98 mg/dL (10/24/17 4:55 AM) VLDL 45 *NA* (10/24/17 4:55 AM) SPECIAL CHEMISTRY Most recent to oldest [Reference Range]: 1 2 Hgb A1C [<=5.6 %] 6.2 % *HI* (10/24/17 4:55 AM) PARATHYROID PROFILE Most recent to oldest [Reference Range]: 1 2 Ca Ion WB [1.05-1.25 mMol/L] 1.12 mMol/L (10/25/17 2:43 AM) Ca Norm WB [1.05-1.25 mMol/L] 1.12 mMol/L (10/25/17 2:43 AM) URINE AND STOOL Most recent to oldest [Reference Range]: 1 2 UA Turbidity [Clear] Clear (10/24/17 4:30 AM) UA Color [Yellow] Yellow *NA* (10/24/17 4:30 AM) UA pH [5.0-8.0] 7.0 (10/24/17 4:30 AM) UA Spec Grav [<=1.030] 1.015 (10/24/17 4:30 AM) UA Glucose [Negative mg/dL] Negative mg/dL (10/24/17 4:30 AM) UA Blood [Negative] Negative (10/24/17 4:30 AM) UA Ketones [Negative mg/dL] Negative mg/dL *NA* (10/24/17 4:30 AM) UA Protein [Negative mg/dL] Negative mg/dL (10/24/17 4:30 AM) UA Urobilinogen [0.1-1.0 EU/dL] 0.2 EU/dL (10/24/17 4:30 AM) UA Bili [Negative] Negative *NA* (10/24/17 4:30 AM) UA Leuk Est [Negative] Negative (10/24/17 4:30 AM) UA Nitrite [Negative] Negative (10/24/17 4:30 AM) UA WBC [None Seen] None Seen (10/24/17 4:30 AM) UA RBC [0-2] None Seen (10/24/17 4:30 AM) UA Bacteria [None Seen /HPF] Few /HPF (10/24/17 4:30 AM) UA Sq Epi [Few] None Seen (10/24/17 4:30 AM) HEMATOLOGY Most recent to oldest [Reference Range]: 1 2 WBC [3.7-10.4 K/CMM] 7.3 K/CMM 8.2 K/CMM (10/25/17 2:43 AM) (10/24/17 4:55 AM) RBC [4.70-6.10 M/CMM] 4.51 M/CMM 4.59 M/CMM *LOW* *LOW* (10/25/17 2:43 AM) (10/24/17 4:55 AM) Hgb [14.0-18.0 g/dL] 12.2 g/dL 12.9 g/dL *LOW* *LOW* (10/25/17 2:43 AM) (10/24/17 4:55 AM) Hct [42.0-54.0 %] 37.2 % 37.6 % *LOW* *LOW* (10/25/17 2:43 AM) (10/24/17 4:55 AM) MCV [80.0-94.0 fL] 82.5 fL 82.0 fL (10/25/17 2:43 AM) (10/24/17 4:55 AM) MCH [27.0-31.0 pg] 27.1 pg 28.0 pg (10/25/17 2:43 AM) (10/24/17 4:55 AM) MCHC [32.0-36.0 g/dL] 32.8 g/dL 34.2 g/dL (10/25/17 2:43 AM) (10/24/17 4:55 AM) RDW [11.5-14.5 %] 18.0 % 18.5 % *HI* *HI* (10/25/17 2:43 AM) (10/24/17 4:55 AM) MPV [7.4-10.4 fL] 8.0 fL 7.7 fL (10/25/17 2:43 AM) (10/24/17 4:55 AM) Platelet [133-450 K/CMM] 270 K/CMM 288 K/CMM (10/25/17 2:43 AM) (10/24/17 4:55 AM) Segs [45.0-75.0 %] 52.8 % 54.0 % (10/25/17 2:43 AM) (10/24/17 4:55 AM) Lymphocytes [20.0-40.0 %] 26.6 % 25.4 % (10/25/17 2:43 AM) (10/24/17 4:55 AM) Monocytes [2.0-12.0 %] 8.1 % 9.5 % (10/25/17 2:43 AM) (10/24/17 4:55 AM) Eosinophils [0.0-4.0 %] 12.0 % 10.4 % *HI* *HI* (10/25/17 2:43 AM) (10/24/17 4:55 AM) Basophils [0.0-1.0 %] 0.5 % 0.7 % (10/25/17 2:43 AM) (10/24/17 4:55 AM) Neutrophils # [1.5-8.1 K/CMM] 3.8 K/CMM 4.4 K/CMM (10/25/17 2:43 AM) (10/24/17 4:55 AM) Lymphocytes # [1.0-5.5 K/CMM] 1.9 K/CMM 2.1 K/CMM (10/25/17 2:43 AM) (10/24/17 4:55 AM) Monocytes # [0.0-0.8 K/CMM] 0.6 K/CMM 0.8 K/CMM (10/25/17 2:43 AM) (10/24/17 4:55 AM) Eosinophils # [0.0-0.5 K/CMM] 0.9 K/CMM 0.9 K/CMM *HI* *HI* (10/25/17 2:43 AM) (10/24/17 4:55 AM) Basophils # [0.0-0.2 K/CMM] 0.1 K/CMM (10/24/17 4:55 AM) PT [12.0-14.7 seconds] 13.2 seconds (10/24/17 4:55 AM) INR [0.85-1.17] 1.00 (10/24/17 4:55 AM) PTT [22.9-35.8 seconds] 34.0 seconds (10/24/17 4:55 AM) Immunizations No data available for this section Procedures Procedure Date Related Diagnosis Body Site Status Vein procedure 10/07/12 Completed Appendectomy Completed Cataract surgery Completed Cholecystectomy Completed Hernia repair Completed Social History Social History Type Response Substance Abuse Use: None. IV drug use: No. Alcohol Never, Previous treatment: None. Alcohol use interferes with work or home: No. Drinks more than intended: No. Ready to change: No. Household alcohol concerns: No. Smoking Status Former smoker; Ready to change: No; Concerns about tobacco use in household: No; Exposure to Tobacco Smoke None; Cigarette Smoking Last 365 Days No; Reg Smoking Cessation Counseling No entered on: 10/23/17 Assessment and Plan Extracted from: Title: post-discharge f/u appointments Author: Lucia Montesinos RN Date: Arranged for this patient to follow up at the [facility] Tel on November 07, 2017 at 8:00AM with Dr. Parsons/Dr. Pruitt. Also arranged for this patient to follow up with Dr. Doty at the [facility] [place] for low vision consult and visual rehabiliation. Patient and family (tricia Sands )are aware and agreeable to these appointments. SIL Bhatia, RN Nurse Navigator Tel No [phone] Extracted from: Title: Stroke Discharge Summary Author: Cristian Smith MD Date: 12/04 [facility] DISCHARGE SUMMARY Date of Admission: 10/23/2017 Date of Discharge: 10/26/2017 Admission Diagnosis: Acute ischemic stroke Discharge Diagnoses: Acute ischemic stroke (Left PANTOGRAPH ENGRAVER infarct) Consults Obtained: Hematology Brief HPI and Hospital Course: Patient is a 76 Years old Male with PMH of 3 prior CVAs, 2004 with visual deficit, 2013 with left-sided weakness and multiple DVT and PEs, hypercoagulable state, migraine disorder with aura since the ag e of who came in for sudden onset headache and visual changes. The patient states that at 3 AM he woke up with severe left-sided headache, nausea and bilateral blurry vision. He took 2 ibuprofen an d one tramadol for the pain and he says that it did not resolve the pain at all. He explains the visual changes as looking through foggy class. He denies any black curtain coming down. He also had se veral vomiting episodes later on. He went to outside hospital ED and got fentanyl and his symptoms of headache and visual changes have resolved. He also got CT head that did not show any acute abnorma lities. He states that this headache does not look like his migrainous headaches and it is on the other side of his head. Regarding his migraine history, he gets migraine with visual aura and it is usually on the right side of his head. He usually gets 6-8 attacks of migraine headaches a month and he usually takes 3 ibupr ofen pills when he gets the visual changes and they usually go away in a matter of 2 hours. He has been having these migrainous headache for the past 64 years. GCS on admission was 15. At the baseline, the patient uses a walker to ambulate and he has residual left-sided weakness from the previous stroke. He received workup for stroke etiology and is suspected to be due to hypercoagulability versus artery to artery embolization. He was not on Aspirin or Plavix, so we started Plavix and statin. He previou sly had stomach upset with aspirin. He will need to follow up in Stroke Clinic and may require event monitor. We also referred him to the [facility] for visual rehabilitation. Discharge Physical Examination Vitals (Last 24 Hours) HR: 65-76 SBP: 112-141, DBP: 61-91 SpO2: >93% on room air GENERAL: NAD HEENT: - Normocephalic and atraumatic, dry mm, no LN, no Thyromegally LUNGS - Clear to auscultation bilaterally with no wheezes CV - S1S2 RRR, no m/r/g, equal pulses bilaterally. ABDOMEN - Soft, nontender, nondistended with normoactive BS NEURO: Mental Status: A&Ox3 Language: speech is normal. Naming, repetition, fluency, and comprehension intact. Cranial Nerves: PERRL 3mm/brisk. EOMI, visual field cut with possible right hemianopsia. The patient's cooperation for the examination was not optimal as he states that he has some deficit from the prev ious strokes. No facial asymmetry, facial sensation intact, hearing intact, tongue/uvula/soft palate midline, normal sternocleidomastoid and trapezius muscle strength. No evidence of tongue atrophy or fibrillations Motor: 5/5 in both right upper and lower extremities 4-/5 in both left upper and lower extremities; deficits from previous stroke Tone: is normal and bulk is normal Sensation-decreased sensation to light touch on the left upper and left lower extremity however the patient says that this is from the previous stroke in 2013. Normal sensation to light touch in right both upper and lower extremity Coordination: FTN intact bilaterally, no ataxia in BLE. Gait- deferred Final Diagnosis: Acute ischemic stroke (Left PANTOGRAPH ENGRAVER infarct) Etiology of Stroke: Hypercoagulability versus artery to artery embolization Discharge Medications: Discharge Medications topiramate 25 mg oral tablet :25 mg, 1 tab, PO, Daily, for 30 day, 30 tab, 2 Refill(s) Ordered by: Joslyn Betancourt MD - 10/25/2017 13:31 clopidogrel 75 mg oral tablet :75 mg, 1 tab, PO, Daily, 30 tab, 3 Refill(s) Ordered by: Joslyn Betancourt MD - 10/25/2017 13:29 See [facility] for full list Follow up and Important Plans for Future Care: Please follow up in the [facility] using details below. Discharge Instructions/Recommendations: The patient received stroke education regarding signs and symptoms of stroke. They were instructed to call 911 if similar symptoms occurred again. The list of their medications on discharge was review ed with the patient and all questions were answered. You were admitted to the [facility] at [facility] in the [facility]. You were admitted for acute ischemic stroke. This was due to increased clots in the body that led to a clot in one a rtery in the brain. Management of your blood thinning medicine, high blood pressure and high cholesterol are very important to preventing future strokes, so it is very important that you take the medica tions prescribed to you during this hospital stay. Equally important is stopping all tobacco and drug use. 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 Medications: - Take Plavix 75 mg daily for stroke prevention until your stroke follow-up appt. - Take your blood pressure medications daily and monitor your blood pressure at home (goal <130/80). - Take your other medications as instructed in your discharge summary. Follow-up appointments: - Please call [facility] at [phone] as soon as possible and ask to be scheduled in the stroke clinic with DR. DALE BRIGGS within 2-3 weeks to follow up on management of your stroke. Please call [phone] [facility] follow up. Please call our nurse navigator Lucia ([phone]) with any questions after discharge. Please take your discharge paperwork with you to your follow- up appointments. Returning back to work/school will be addressed at your follow- up appointment. Stroke clinic address: [facility] [address] , [address] [place] [address] Addendum by Cristian Smith MD on Statin not indicated due to allergy. 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 Hematology consulted for anticoagulation recommendations given concern for embolic stroke while compliant on Fondaparinux. 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 No history of A fib -Neck MRA showing flow abnormality inleft internal carotid arterypossibly representing atherosclerotic disease. Afterextensive discussion with patient and family, would recommend that patient continues on Fondaparinux at same dose. Strokepossibly 2/2 plaque rupture from atherosclerotic disease so this is like ly not a failure of theFondaparinux.He has done well on Fondaparinux with no further episodes of DVT/PE and minimal bleeding episodes (did have a couple diverticulosis episodes a few months ago that have since resolved) since initiation. Patient alsoseems to be comfortable with Fondaparinux and is having no issues with compliance. Should patient and family wish to switch to NOAC, this can be done outpatient. -Plavix started on this admission. We counseled patient on bleed risk with combined Plavix + Fondaparinux and advised that patient go to ER if any signs of significant bleeding. Patient seen and plan discussed with hematology attending, Dr. Crowell. Thank you for this consult. Hematology will sign off. Please page with any questions. Jolanta Rowland MD PGY-2, Internal Medicine Faculty Addendum: Mr. Menjivar was seen and examined at bedside. Reviewed the documented history, physical examination and assessment and agree with the plan of care without additions. Extracted from: Title: Stroke H and P Author: Nerissa Espinal MD Date: 10/24/17 YOAN MENJIVAR STROKE TEAM - HISTORY AND PHYSICAL Attending of Record:Dr. Lopez Patient Name: YOAN MENJIVAR Patient was admitted on 10/23/2017 Requesting Physician/Service: ED CC: Headache, blurred vision HISTORY OF PRESENT ILLNESS: 76 Years old Male with PMH of 3 prior CVAs, 2005 with visual deficit, 2014 with left-sided weakness and multiple DVT and PEs, hypercoagulable state, migraine disorder with aura since the age of 12 who came in for sudden onset headache and visual changes. The patient states that at 3 AM he woke up with severe left-sided headache, nausea and bilateral blurry vision. He took 2 ibuprofen and one tramad ol for the pain and he says that it did not resolve the pain at all. He explains the visual changes as looking through foggy class. He denies any black curtain coming down. He also had several vomiti ng episodes later on. He went to outside hospital ED and got fentanyl and his symptoms of headache and visual changes have resolved. He also got CT head that did not show any acute abnormalities. He states that this headache does not look like his migrainous headaches and it is on the other side of his head. Regarding his migraine history, he gets migraine with visual aura And it is usually on the right side of his head. He usually gets 6-8 attacks of migraine headaches a month and he usually takes 3 ibuprofen pills when he gets the visual changes and they usually go nicole y in a matter of 2 hours. He has been having these migrainous headache for the past 64 years. GCS on admission was 15. At the baseline, the patient uses a walker to ambulate and he has residual left-sided weakness from the previous stroke. REVIEW OF SYSTEMS: GEN: no fever, chills, weight loss, fatigue CARDIO: no chest pain, palpitations PULM: no shortness of breath, cough GI: no nausea, vomiting, diarrhea, no abd pain : no frequency, dysuria, hematuria NEURO: see HPI SKIN: no rash or lesion MSK: no pain, swelling LYMPH/IMMUNO: No lymph node enlargement/tenderness, no heat/cold intolerance Past Medical History: Stroke Hypertension PVD (peripheral vascular disease) Migraine HLD (hyperlipidemia) Depression Family Medical History: Father: Cardiac arrest Mother: Stroke Sister: COPD; Lymphoma Brother: Heart disease Social History: Patient is /and lives with his .Denies alcohol and illicit drug use. Denies smoking. Alcohol Details: Never, Previous treatment: None. Alcohol use interferes with work or home: No. Drinks more than intended: No. Ready to change: No. Household alcohol concerns: No. Details: Never Tobacco Details: Use: Former smoker. Tobacco smoke exposure: None. Did the Patient Smoke Cigarettes Anytime During the Last 365 Days? No. Cessation Counseling Provided? No. Details: Use: Former smoker. Ready to change: No. Household tobacco concerns : No. Tobacco smoke exposure: None. Did the Patient Smoke Cigarettes Anytime During the Last 365 Days? No. Cessation Counseling Provided? No. Substance Abuse Details: Use: None. IV drug use: No. Medications: No qualifying data available Allergies: Allergies (2) Active Reaction Lipitor None documented aspirin None documented Vitals Tmp(F) Pulse BP RR SpO2 FIO2 10/23 18:26 ---- 57 123/78 24 97 --- 10/23 17:50 ---- 59 127/81 24 96 --- 10/23 17:15 98.6 68 117/77 16 96 --- 24 Hr Tmax: 98.6F (37.00c) at 10/23 17:15 Vital Signs are the last 5 in the past 48 hours. Physical Exam: GENERAL: NAD HEENT: - Normocephalic and atraumatic, dry mm, no LN, no Thyromegally LUNGS - Clear to auscultation bilaterally with no wheezes CV - S1S2 RRR, no m/r/g, equal pulses bilaterally. ABDOMEN - Soft, nontender, nondistended with normoactive BS NEURO: Mental Status: AA&Ox3 Language: speech is normal. Naming, repetition, fluency, and comprehension intact. Cranial Nerves: PERRL__3__mm/brisk. EOMI, visual field cut with possible right hemianopsia, The patient's cooperation for the examination was not optimal as he states that he has some deficeit from the prvious strokes. no facial asymmetry, facial sensation intact, hearing intact, tongue/uvula/soft palate midline, normal sternocleidomastoid and trapezius muscle strength. No evidence of tongue atrophy or fibrillations Motor: 5/5 in both right upper and lower extremities 4-/5 in both left upper and lower extremities; deficits from previous stroke Tone: is normal and bulk is normal Sensation-decreased sensation to light touch on the left upper and left lower extremity however the patient says that this is from the previous stroke in 2013. Normal sensation to light touch in right both upper and lower extremity Coordination: FTN intact bilaterally, no ataxia in BLE. 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 Level of Consciousness; 0-alert 1-drowsy 2-stupor 3-coma 0 1b. LOC Questions month and age; 0-both 1-one 2-neither 0 1c. 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 Best Gaze; 0-nl 1-partial 2-forced gaze 1 3. Visual Singh; 0-No visual loss. 1-Partial hemianopia 2-Complete 3-Bilateral 0 4. Facial Palsy; 0-none 1-minor 2-partial 3-complete 0 5. Motor - R arm; 0-No drift 1-Drift 2-Some antigravity 3-No antigravity 4- No movement 0 6. Motor - R leg; 0-No drift 1-Drift 2-Some antigravity 3-No antigravity 4- No movement 1 7. Motor - L arm; 0-No drift 1-Drift 2-Some antigravity 3-No antigravity 4- No movement 1 8. Motor - L leg; 0-No drift 1-Drift 2-Some antigravity 3-No antigravity 4- No movement 0 9. Limb Ataxia; 0 absent 1 - 1limb 2 - 2 limbs 1 10. Sensory; 0-nl 1-partial loss 2-dense loss 0 11. Best Language; 0-nl 1-mild/mod 2-severe 3-mute 0 12. Dysarthria; 0-nl 1-mild/mod 2-severe x-untestable 0 13. Extinction and Inattention (formerly Neglect); 0-none 1-partial 2- complete 4 Total Labs: Laboratory or Other Results This Visit(last charted value for 2017visit) No Laboratory or Other Results This Visit EKG:nsr Imaging: Brain MRA IMPRESSION: 1. Restricted diffusion in the region of the left posterior temporal and occipital lobe consistent with recent infarct in the left PANTOGRAPH ENGRAVER territory with mild surrounding vasogenic edema. No evidence of acute hemorrhage. 2. Extensive increased T2/FLAIR signal in the periventricular white matter corresponding to chronic microangiopathic ischemic changes. 3. MRA demonstrates stenosis in the diffuse or segment of the left vertebral artery with normal opacification distally in multifocal contour irregularity of the intracranial vasculature likely secondary to atherosclerotic disease. 4. Old infarct in the left cerebellar hemisphere. 5. Mucosal thickening in the left maxillary sinus. 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 The patient had a brain CT in outside hospital which was negative however he had a brain MRI which showed left posterior temporal and occipital lobe infarct and left PANTOGRAPH ENGRAVER. Acute Ischemic Stroke Cerebral infarction due to embolism of left posterior cerebral artery Acuity: Acute Current Suspected Etiology: Hypercoagulability Continue Evaluation: -Admit to: Stroke unit - Patient not able to take aspirin due to allergy, will give plavix load -Blood pressure control, goal of SYS <220 -MRI/ECHO/A1C/Lipid panel. -Hyperglycemia management per SSI to maintain glucose 140-180mg/dL. -PT/OT/ST therapies and recommendations when able Hemiplegia and hemiparesis following cerebral infarction affecting left non- dominant side Monitor Migraine headache with aura -Continue prophylaxis with home medication venlafaxine 37.5 mg every other day CV Essential (primary) hypertension -Aggressive BP control, goal SBP < 220 -Titrate oral agents Hyperlipidemia, unspecified - goal LDL < 70 Did not start the patient on Lipitor as he is allergic to it. Hypercoagulable state continue home Fondaparinux GI/ CKD Stage 3 (GFR 30-59) -Gentle hydration -avoid nephrotoxic agents BPH Continue home finasteride 5 mg nightly ID Possible Aspiration PNA -CXR -NPO -Monitor Possible UTI -CX pending Nutrition E66.9 Obesity -diet consult Prophylaxis DVT: Fondaparinux GI: na Bowel: Docusate Diet: NPO until cleared by speech Code Status: Full Code THE FOLLOWING WERE PRESENT ON ADMISSION: PHOTO LAB SPECIALIST - Acute Ischemic Stroke, Cardiovascular -hypertension Infectious -none GI -none Renal - CKD, BPH Heme-hypercoagulable state Cancer -none Trauma -none Palliative care none ACUTE STROKE BENCHMARKS: TIME PT LAST SEEN NORMAL 3 am 10/23/17 EMS PRE-NOTIFICATION na CODE STROKE ACTIVATION na ARRIVAL TIME na TIME OF STROKE TEAM EVALUATION na CT HEAD READ TIME na IV tPA bolus (time and dose) na IV tPA infusion (time and dose) na If not a candidate for IV tPA, why? out of window Delays in this process: (None) STROKE ATTENDING I have seen and examined the patient. Furthermore, I have discussed the case with and reviewed the resident's note and agree with the history, exam, assessment and plan. See note below for additions a nd/or exceptions and my findings. I have personally viewed the patient's radiographic studies and laboratory tests. Exam: Right VFD Left sided drift--chronic Awake and alert, oriented x 3 Imaging: MRI Brain/MRA Brain: 1. Recent infarct in the left PANTOGRAPH ENGRAVER territory without hemorrhage. 2. Areas of encephalomalacia consistent with old infarcts in the right cerebral, left cerebellar hemisphere, and right basal ganglia. 3. Unremarkable MRA of the brain. There is no major intracranial branch occlusion. TTE: Conclusions 1) This study demonstrates normal left ventricular size and overall systolic function, mitral annular calcification, fibrocalcific changes of the aortic valve with mild aortic stenosis (peak velocity is 2.4 m/sec; mean gradient is 9.97mmHg; MAGGIE is calculated at 1.77cm2), mild tricuspid regurgitation with normal estimated pulmonary artery systolic pressures, trivial pericardial effusion, and a negative agitated saline contrast study compatible with no significant interatrial shunt communication. 2) Compared to the TTE from 10/08/13, mild aortic stenosis is seen in this study. EKG: NSR Labs: LDL: 92 HgbA1c: 6.2 Assessment/Plan: 76 yr old with known hx of hypercoag state, hx of multiple DVT/PE, and CVA x 3 p/w acute onset of vision changes found to have Left PANTOGRAPH ENGRAVER acute stroke suspect due to hypercoag state vs artery to artery embolization [id number] Inpatient admission Principal Diagnosis I63.332 Cerebral infarction due to thrombosis of left posterior cerebral artery I10 Essential (primary) hypertension Hx of DVT/PE HYpercoag state Migraine Acuity: Acute Laterality of vessel: Left PANTOGRAPH ENGRAVER Current suspected etiology: to be determined, suspect hypercoag state Continue evaluation: MRA carotid Treatment/Plan: Plavix and continue Fondaparinux for stroke prevention, Statin , may need 30 day event monitor if no etiology elicited during admission, Normalize BP Physical Therapy/Occupational Therapy Evaluation Disposition recommendation: Speech and Language Recommendations: DVT Prophylaxis Treatment: SCD s Follow up care: Will need to follow up in stroke clinic in 4-6 weeks 6-8 weeks after discharge. Discuss philosophy of care with patient and family, reviewed and updated on plan of care and prognosis Padmini (Brandon) MD [employer] [facility] Pager: [phone]
--- OUTSIDE RECORDS SUMMARY | 2018-07-14 12:28 | XMS REPORT | Summary of Care ---
:1940 Author Name MERRICK RAMON M.D. Address CT Physicians Unavailable , Care Team Providers Name Role Phone YENNY Benton, MERRICK Unavailable Unavailable MARY JO Benton, LISBETH Unavailable Unavailable JO DESHPANDE M.D. 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: Active Dysphagia as late effect of cerebrovascular disease (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.82, I69.991) Status : Active Obstructive sleep apnea (327.23, G47.33) Status: Active Benign prostatic hypertrophy (600.00, N40.0) Status: Active Shoulder pain, left (719.41, M25.512) Status: Active Migraine (346.90, G43.909) Status: Active Confirmed ischemic stroke (434.91, I63.9) Status: Active Hemiparesis due to recent stroke (438.20, I69.359) Status: Active Stenosis of left carotid artery (433.10, I65.22) Status: Active Cough in adult (786.2, R05) Status: Active Stenosis of left carotid artery (433.10, I65.22) Status: Active Carotid stenosis (433.10, I65.29) Status: Active Hyperlipidemia (272.4, E78.5) Status: Active Cerebral infarction due to embolism of right middle cerebral artery (434.11, I63.411) Status: Active Cerebral infarction due to embolism of right posterior cerebral artery (434.11 , I63.431) Status: Active Essential hypertension (401.9, I10) Status: Active Hypercoagulation syndrome (289.81, D68.59) Status: Active Medications Name Dates Details Venlafaxine HCl - 37.5 MG Oral Tablet TAKE 1 TABLET DAILY. Refills: 0 JO DESHPANDE M.D. Start : 26-Nov-2013 Active Tylenol 325 MG Oral Tablet TAKE 1 TO 2 TABLETS EVERY 6 HOURS NEEDED. Refills: 0 JO DESHPANDE M.D. Start : 26-Nov-2013 Active Fondaparinux Sodium 7.5 MG/0.6ML Subcutaneous Solution INJECT 7.5 MG Daily Quantity: 9 Refills: 3 MERRICK RAMON M.D. Start : 27-May-2014 Active 10 x 0.6 ML Syringe Losartan Potassium 25 MG Oral Tablet TAKE 1/2 TABLET DAILY. Refills: 0 JO DESHPANDE M.D. Start : 27-May-2014 Active Aspirin 81 MG TABS TAKE 1 TABLET DAILY. Refills: 0 JO DESHPANDE M.D. Start : 27-May-2014 Active Finasteride 5 MG Oral Tablet TAKE 1 TABLET DAILY. Refills: 0 JO DESHPANDE M.D. Start : 27-May-2014 Active traMADol HCl - 50 MG Oral Tablet TAKE ONE TABLET BY MOUTH EVERY 6 TO 8 HOURS NEEDED FOR PAIN Quantity: 60 Refills: 0 MARY JO Benton LISBETH Start : 07-Mar-2015 Active Benzonatate 100 MG Oral Capsule TAKE 1 CAPSULE 3 TIMES DAILY. Refills: 0 Start : 07-Nov-2017 Active Chlorthalidone 25 MG Oral Tablet TAKE 1 TABLET DAILY. Refills: 0 Start : 07-Nov-2017 Active Spironolactone 25 MG Oral Tablet TAKE 1 TABLET DAILY. Refills: 0 Start : 07-Nov-2017 Active Topiramate 25 MG Oral Tablet TAKE 1 TABLET DAILY Refills: 0 Start : 07-Nov-2017 Active Allergies and Adverse Reactions Name Dates Details Lipitor (Allergy) Reaction: Vomiting, Diarrhea, Nausea Status: Active Past Medical History Name Dates Details Benign prostatic hypertrophy (600.00, N40.0) Status: Active Cerebral infarction due to embolism of right middle cerebral artery (434.11, I63.411) Status: Active Cerebral infarction due to embolism of right posterior cerebral artery (434.11 , I63.431) Status: Active Confirmed ischemic stroke (434.91, I63.9) Status: Active Essential hypertension (401.9, I10) Status: Active Hyperlipidemia (272.4, E78.5) Status: Active History of deep venous thrombosis (V12.51, Z86.718) Status: Resolved History of Depression, controlled (311, F32.9) Status: Resolved History of hypercoagulable state (V12.3, Z86.2) Status: Resolved History of migraine with aura (V12.49, Z86.69) Status: Resolved Procedures Procedure Dates Details History of Appendectomy Completed History of Hernia Repair Completed Immunization Name Dates Details Immunizations not documented Family History Name Dates Details FH: hip fracture (V19.8, Z84.89) Status: Active Family history of blood clots (V18.3, Z82.49) Status: Active Name Dates Details FH: myocardial infarction (V17.3, Z82.49) Status: Active Social History Name Dates Details - Status: Name Dates Details Never smoker Vital Signs Date Test Result Details [id number] BP Systolic 122 mm[Hg] Status: Comments: Location: LUE; Position: Sitting BP Diastolic 78 mm[Hg] Status: Comments: Location: LUE; Position: Sitting Height 70 in Status: Weight 218 lb Status: Body Mass Index Calculated 31.28 kg/m2 Status: Body Surface Area Calculated 2.17 m2 Status: Heart Rate 72 /min Status: Comments: Location: L Brachial Artery; Results Date Description Value Details Results not documented Plan of Care Name Dates Details Planned Observations Planned Goals not documented Planned Encounters Speech Therapy Referral Appointment; MERRICK RAMON M.D. 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 - Given severe soft plaque noted in L proximal ICA, will restart antiplatelet with ASA 81mg daily - Obtain repeat CDUS to re-evaluate plaque in 6 months - Previously was on warfarin which was difficult keep within theraputic level. - Continue Arixtra 7.5mg daily. - Given the fact he has been unable to tolerate statins due to allergy, will start Zetia 10mg QHS for goal LDL < 70. - Obtain repeat FLP in 6 months - Follow up event monitor results once available - Continue outpatient PT and OT services - Return to clinic in 6 months with above studies ordered 2) High Blood Pressure (Hypertension): - Continue Losartan 12.5mg by mouth daily, chlorthalidone 25mg once daily, spirinolactone 25mg once daily. 3) High Cholesterol (Hyperlipidemia): - Start Zetia 10mg QHS. See above for LDL goals. 4) Hypercoaguable State: - Continue Arixtra 7.5mg daily to thin blood and prevent strokes and blood clots. 5) Cough - Not current offending medications - Referral to information officer for further workup and management Return to clinic in 6 months. -- We provided education about stroke and TIA risk reduction -- Continue antithrombotic ASA 81mg daily for stroke preventionContinue Arixtra 7.5mg dailyObtain repeat CDUS in clinic in 6 months to evaluate ICA stenosis/plaque -- Your blood pressure goal is less than 140/90 -- LDL goal is less than 70 -- Discussed with patient lifestyle changes including a Mediterranean style diet and regular exercise1. Referral to speech therapy for a FEES study- If the FEES is not an option, a Barium swallow study is also an option2. Refill ArixtraFollow up in one year. Instructions Name Dates Details Instructions not documented Encounters Appointment; LISBETH CAMARGO M.D. On: 05-Nov-2016 15:15 Encounter Diagnosis: Problem not documented Appointment; BALDEMAR PATEL M.D. On: 11-Jul-2017 15:30 Encounter Diagnosis: Problem not documented Appointment; LINO WILSON M.D. On: 07-Nov-2017 8:00 Encounter Diagnosis: Problem not documented Appointment; MERRICK RAMON M.D. On: 28-Nov-2017 10:00 Encounter Diagnosis: Problem not documented Appointment; MERRICK RAMON M.D. On: 28-Nov-2017 10:00 Encounter Diagnosis: Problem not documented Appointment; MERRICK RAMON M.D. On: 28-Nov-2017 10:30 Encounter Diagnosis: Problem not documented Appointment; GLADYS ENNIS M.D. On: 05-Dec-2017 10:30 Encounter Diagnosis: Problem not documented Appointment; MERRICK RAMON M.D. On: 05-Jun-2018 10:30 Encounter Diagnosis: Problem not documented
--- NOTE | 2018-07-14 14:05 | RAD REPORT ---
EXAM DESCRIPTION: US - UPPER EXTREMITY VENOUS UNILATE - 07/14/2018 1:41 pm CLINICAL HISTORY: Left arm pain and swelling COMPARISON: None. TECHNIQUE: Real-time sonographic evaluation of the left upper extremity deep venous system was perfo rmed. FINDINGS: Normal compressibility, flow augmentation, phasic flow and spontaneous flow is identified in the left upper extremity deep venous system. No intraluminal filling defects seen. Left-sided jugu lar and left-sided subclavian veins also clear. IMPRESSION: No DVT in the left upper extremity.
[2018-07-14 15:23] LABS: Absolute Lymphocytes (CBC) 1.8 K/uL (0.7-4.9); Absolute Monocytes 0.7 K/uL (0.1-1.3); Absolute Neutrophil 4.9 K/uL (1.8-8.0); Basophils % 0.5 % (0-1.3); Eosinophils % 15.8 % (0-4.4); Hematocrit 39.8 % (39.6-49.0); Lymphocytes % 20.2 % (15.3-44.8); MPV 8.6 fL (7.6-11.3); Monocytes % 7.8 % (3.3-12.3); Protime INR 1.16; RBC Red Blood Cell Count 4.46 M/uL (4.33-5.43)
[2018-07-14 15:33] LABS: Albumin 3.7 g/dL (3.4-5.0); Bilirubin Direct 0.1 mg/dL (0-0.2); Bilirubin Total 0.5 mg/dL (0.2-1.0); Potassium 3.5 mmol/L (3.5-5.1); Protein, Total 8.9 g/dL (6.4-8.2)
--- NOTE | 2018-07-14 16:18 | EDPHYS ---
Physician Documentation [facility] Name: Wicho Dudley Age: 77 yrs Sex: Male : 1940 Arrival Date: 07/14/2018 Time: 12:15 Bed 16 Private MD: Sumeet Fierro ED Physician Radha Pierson HPI: 07/14 13:55 This 77 yrs old Male presents to ER via Ambulatory with complaints of Rash. pm1 13:55 The patient's rash thought to be caused by an unknown cause. The rash is located on the pm1 dorsal aspect of left forearm, left hand, face, and right side of back. The rash can be described as macular, vesicular. Onset: The symptoms/episode began/occurred 10 day(s) ago. Associated signs and symptoms: Pertinent positives: fever, itching, chills. Swelling to left arm, Pertinent negatives: difficulty breathing, swelling of lips, swelling of throat, swelling of tongue, vomiting. Severity of symptoms: in the emergency department the symptoms are worse. The patient has been recently seen by a physician: the patient's primary care provider, Dr. Fierro. Patient seen by Dr. Fierro at onset of rash and was diagnosed with cellulitis and placed on doxycycline. Patient has taken 9 days of antibiotics and followed up with him today. Sent to the ER for evaluation due to lack of improvement with antibiotics. 13:55 Onset after scratch by his dogs nail on left dorsal aspect of forearm. pm1 Historical: - Allergies: 12:23 No Known Allergies; hb - Home Meds: 12:23 Arixtra [Active]; chlorthalidone 25 mg Oral tab 1 tab once daily [Active]; finasteride hb 5 mg Oral tab 1 tab once daily [Active]; fondaparinux 7.5 mg/0.6 mL subcutaneous syrg 0.6 mL once daily [Active]; tamsulosin 0.4 mg Oral cp24 1 cap once daily [Active]; Tessalon Perles 100 mg Oral cap 1 cap as needed [Active]; venlafaxine 37.5 mg Oral cp24 1 cap Every other day [Active]; - PMHx: 12:23 Depression; BPH; Hypertension; CVA; hb - PSHx: 12:23 Appendectomy; Cholecystectomy; Hernia repair; Tonsillectomy; hb - Immunization history:: Adult Immunizations up to date. - Social history:: Smoking status: Patient/guardian denies using tobacco. - Ebola Screening: : No symptoms or risks identified at this time. ROS: 13:55 Eyes: Negative for injury, pain, redness, and discharge, ENT: Negative for injury, pm1 pain, and discharge. 13:55 Neck: Negative for injury, pain, and swelling, Cardiovascular: Negative for chest pain, palpitations, and edema, Respiratory: Negative for shortness of breath, cough, wheezing, and pleuritic chest pain, Abdomen/GI: Negative for abdominal pain, nausea, vomiting, diarrhea, and constipation, Back: Negative for injury and pain, : Negative for injury, bleeding, discharge, and swelling. 13:55 Neuro: Negative for headache, weakness, numbness, tingling, and seizure. 13:55 Constitutional: Positive for on and off fever and chills, Negative for poor PO intake. 13:55 MS/extremity: Positive for swelling, of the left arm, itching, Negative for pain. 13:55 Skin: Positive for cellulitis, rash, of the face, back and left arm. Exam: 13:55 Constitutional: This is a well developed, well nourished patient who is awake, alert, pm1 and in no acute distress. Head/Face: Normocephalic, atraumatic. Eyes: Pupils equal round and reactive to light, extra-ocular motions intact. Lids and lashes normal. Conjunctiva and sclera are non-icteric and not injected. Cornea within normal limits. Periorbital areas with no swelling, redness, or edema. ENT: Nares patent. No nasal discharge, no septal abnormalities noted. Tympanic membranes are normal and external auditory canals are clear. Oropharynx with no redness, swelling, or masses, exudates, or evidence of obstruction, uvula midline. Mucous membranes moist. Neck: Trachea midline, no thyromegaly or masses palpated, and no cervical lymphadenopathy. Supple, full range of motion without nuchal rigidity, or vertebral point tenderness. No Meningismus. Chest/axilla: Normal chest wall appearance and motion. Nontender with no deformity. No lesions are appreciated. Cardiovascular: Regular rate and rhythm with a normal S1 and S2. No gallops, murmurs, or rubs. Normal PMI, no JVD. No pulse deficits. Respiratory: Lungs have equal breath sounds bilaterally, clear to auscultation and percussion. No rales, rhonchi or wheezes noted. No increased work of breathing, no retractions or nasal flaring. Abdomen/GI: Soft, non-tender, with normal bowel sounds. No distension or tympany. No guarding or rebound. No evidence of tenderness throughout. Back: No spinal tenderness. No costovertebral tenderness. Full range of motion. 13:55 Skin: Appearance: normal except for affected area, cellulitis, on the dorsal aspect of left forearm and left hand, with central ulceration to dorsum of left forearm, rash can be described as excoriated, nonspecific, on the circumoral and right cheek, rash can be described as raised, nonspecific, on the right mid back area. Vital Signs: 12:22 BP 117 / 77; Pulse 76; Resp 16; Temp 97.7; Pulse Ox 99% on R/A; Weight 95.71 kg; Height hb 5 ft. 10 in. (177.80 cm); Pain 0/10; 15:50 BP 116 / 83; Pulse 64; Resp 18; Temp 97.6(O); Pulse Ox 99% on R/A; mh5 16:52 BP 151 / 83; Pulse 58; Resp 18; Temp 98.7(O); Pulse Ox 98% ; mh5 17:50 BP 127 / 86; Pulse 58; Resp 20; Temp 98.5(O); Pulse Ox 99% on R/A; mh5 19:35 BP 116 / 85; Pulse 65; Resp 16; Temp 97.5; Pulse Ox 100% on R/A; jb4 12:22 Body Mass Index 30.28 (95.71 kg, 177.80 cm) hb MDM: 12:48 Patient medically screened. pm1 12:53 Data reviewed: vital signs. Data interpreted: Pulse oximetry: on room air is 99 %. pm1 Interpretation: normal. 16:12 Counseling: I had a detailed discussion with the patient and/or guardian regarding: the pm1 historical points, exam findings, and any diagnostic results supporting the discharge/admit diagnosis, lab results, the need for further work-up and treatment in the hospital. 16:15 Physician consultation: Krystina Smith MD was called at 16:15, was contacted at 16:15, pm1 regarding admission, patient's condition, and will see patient in ED. 07/14 12:56 Order name: Basic Metabolic Panel; Complete Time: 15:36 pm1 07/14 12:56 Order name: Blood Culture Adult (2) pm1 07/14 12:56 Order name: CBC with Diff; Complete Time: 15:30 pm1 07/14 12:56 Order name: Lactate; Complete Time: 16:10 pm1 07/14 12:56 Order name: LFT's; Complete Time: 15:36 pm1 07/14 12:56 Order name: Procalcitonin; Complete Time: 16:04 pm1 07/14 12:56 Order name: Protime (+inr); Complete Time: 15:30 pm1 07/14 12:56 Order name: Ptt, Activated; Complete Time: 15:30 pm1 07/14 12:56 Order name: Extremity Venous Uni Ltd US pm1 07/14 13:03 Order name: UPPER EXTREMITY VENOUS UNILATE; Complete Time: 14:34 EDMS 07/14 18:03 Order name: Diet Regular; Complete Time: 18:04 rb1 07/14 12:56 Order name: Labs collected and sent; Complete Time: 16:20 pm1 07/14 12:56 Order name: Urine Dipstick-Ancillary (obtain specimen) pm1 07/14 12:56 Order name: IV Saline Lock; Complete Time: 16:19 pm1 Administered Medications: 17:10 Drug: Unasyn 3 grams Route: IVPB; Infused Over: 30 mins; Site: right antecubital; ae4 18:02 Follow up: Response: No adverse reaction; IV Status: Completed infusion rb1 18:38 Drug: Benadryl 12.5 mg Route: IVP; Site: right antecubital; ae4 18:40 Drug: vancoMYCIN 1 grams Route: IVPB; Infused Over: 2 hrs; Site: right antecubital; ae4 Point of Care Testing: Blood Glucose: 14:36 Blood Glucose: 110 mg/dL; ae4 Ranges: Critical Glucose Levels:Adult <50 mg/dl or >400 mg/dl <40 mg/dl or >180 mg/dl Disposition: 21:15 Co-signature as Attending Physician, Radha Pierson MD. ma2 Disposition: 07/14/18 16:18 Hospitalization ordered by Krystina Smith for Inpatient Admission. Preliminary diagnosis are Cellulitis of left upper limb, Failed outpatient antibiotic therapy for cellulitis. - Bed requested for Telemetry/MedSurg (Inpatient). - Status is Inpatient Admission. jb4 - Condition is Stable. - Problem is new. - Symptoms have improved. UTI on Admission? No Signatures: Dispatcher [employer] EDMS Suzanne San RN RN Augusto Ordonez, STRADDLE TRUCK DRIVER STRADDLE TRUCK DRIVER pm1 Cherelle Mendoza, RN RN Hector Parker RN RN jb4 Radha Pierson MD MD ma2 Joselo Monterroso RN RN ae4 Kimi Connolly RN rb1 Corrections: (The following items were deleted from the chart) 16:19 16:18 Hospitalization Ordered by Krystina Smith MD for Inpatient Admission. Preliminary pm1 diagnosis is Cellulitis of left upper limb. Bed requested for Telemetry/MedSurg (Inpatient). Status is Inpatient Admission. Condition is Stable. Problem is new. Symptoms have improved. UTI on Admission? No. pm1 18:15 16:19 07/14/2018 16:18 Hospitalization Ordered by Krystina Smith MD for Inpatient dw Admission. Preliminary diagnosis is Cellulitis of left upper limb; Failed outpatient antibiotic therapy for cellulitis. Bed requested for Telemetry/MedSurg (Inpatient). Status is Inpatient Admission. Condition is Stable. Problem is new. Symptoms have improved. UTI on Admission? No. pm1 20:30 18:15 07/14/2018 16:18 Hospitalization Ordered by Krystina Smith MD for Inpatient jb4 Admission. Preliminary diagnosis is Cellulitis of left upper limb; Failed outpatient antibiotic therapy for cellulitis. Bed requested for Telemetry/MedSurg (Inpatient). Status is Inpatient Admission. Condition is Stable. Problem is new. Symptoms have improved. UTI on Admission? No. dw
--- NOTE | 2018-07-14 16:18 | ER ---
Nurse's Notes [facility] Name: Wicho Dudley Age: 77 yrs Sex: Male : 1940 Arrival Date: 07/14/2018 Time: 12:15 Bed 16 Private MD: Sumeet Fierro Diagnosis: Cellulitis of left upper limb;Failed outpatient antibiotic therapy for cellulitis Presentation: 07/14 12:20 Presenting complaint: Sent by Dr. Fierro for rash to left arm x 1 week, rash to face x hb 2 days Swelling noted to left forearm and left hand. Transition of care: patient was not received from another setting of care. Onset of symptoms was July 08, 2018. Risk Assessment: Do you want to hurt yourself or someone else? Patient reports no desire to harm self or others. Care prior to arrival: None. 12:20 Method Of Arrival: Ambulatory hb 12:20 Acuity: BRENDAN 3 hb 20:03 Initial Sepsis Screen: Does the patient meet any 2 criteria? No. Patient's initial ae4 sepsis screen is negative. Does the patient have a suspected source of infection? Yes: Skin breakdown/wound. Historical: - Allergies: 12:23 No Known Allergies; hb - Home Meds: 12:23 Arixtra [Active]; chlorthalidone 25 mg Oral tab 1 tab once daily [Active]; finasteride hb 5 mg Oral tab 1 tab once daily [Active]; fondaparinux 7.5 mg/0.6 mL subcutaneous syrg 0.6 mL once daily [Active]; tamsulosin 0.4 mg Oral cp24 1 cap once daily [Active]; Tessalon Perles 100 mg Oral cap 1 cap as needed [Active]; venlafaxine 37.5 mg Oral cp24 1 cap Every other day [Active]; - PMHx: 12:23 Depression; BPH; Hypertension; CVA; hb - PSHx: 12:23 Appendectomy; Cholecystectomy; Hernia repair; Tonsillectomy; hb - Immunization history:: Adult Immunizations up to date. - Social history:: Smoking status: Patient/guardian denies using tobacco. - Ebola Screening: : No symptoms or risks identified at this time. Screenin:57 Abuse screen: Denies threats or abuse. Nutritional screening: No deficits noted. ae4 Tuberculosis screening: No symptoms or risk factors identified. Fall Risk Fall in past 12 months (25 points). No secondary diagnosis (0 pts). IV access (20 points). Ambulatory Aid- Crutches/Cane/Walker (15 pts). Gait- Weak (10 pts.). Mental Status- Oriented to own ability (0 pts). Assessment: 12:50 General: Appears in no apparent distress. uncomfortable, Behavior is calm, cooperative, ae4 appropriate for age. Pain: Complains of pain in dorsal aspect of left forearm and left wrist. Neuro: Level of Consciousness is awake, alert, obeys commands, Oriented to person, place, time, situation. 16:25 Reassessment: Patient appears in no apparent distress at this time. Patient and/or ae4 family updated on plan of care and expected duration. Pain level reassessed. 18:06 Reassessment: Called Dietary to ask for a regular diet tray, I was told that they were rb1 making 6 trays and would be bringing them to the floor. 18:47 Reassessment: Patient is requesting benadryl for itching on affected area, left arm and ae4 "all over" Okay to administer per Dr. Smith to administer 12.5 mg Benadryl IVP. 19:39 Reassessment: Patient appears in no apparent distress at this time. Patient and/or jb4 family updated on plan of care and expected duration. Pain level reassessed. Patient is alert, oriented x 3, equal unlabored respirations, skin warm/dry/pink. Attempted to call report, instructed to wait for call back. 20:04 Reassessment: Report called to Katie, receiving nurse. ae4 Vital Signs: 12:22 BP 117 / 77; Pulse 76; Resp 16; Temp 97.7; Pulse Ox 99% on R/A; Weight 95.71 kg; Height hb 5 ft. 10 in. (177.80 cm); Pain 0/10; 15:50 BP 116 / 83; Pulse 64; Resp 18; Temp 97.6(O); Pulse Ox 99% on R/A; mh5 16:52 BP 151 / 83; Pulse 58; Resp 18; Temp 98.7(O); Pulse Ox 98% ; mh5 17:50 BP 127 / 86; Pulse 58; Resp 20; Temp 98.5(O); Pulse Ox 99% on R/A; mh5 19:35 BP 116 / 85; Pulse 65; Resp 16; Temp 97.5; Pulse Ox 100% on R/A; jb4 12:22 Body Mass Index 30.28 (95.71 kg, 177.80 cm) hb ED Course: 12:15 Patient arrived in ED. as 12:15 Sumeet Fierro DO is Private Physician. as 12:22 Triage completed. hb 12:22 Arm band placed on right wrist. hb 12:47 Augusto Ordonez NP is PHCP. pm1 12:48 Radha Pierson MD is Attending Physician. pm1 13:00 Patient has correct armband on for positive identification. Bed in low position. Call mh5 light in reach. Side rails up X2. Adult w/ patient. Pulse ox on. NIBP on. 13:27 UPPER EXTREMITY VENOUS UNILATE In Process Unspecified. EDMS 14:30 Missed attempt(s): 20 gauge in right antecubital area. mh5 14:36 Joselo Monterroso RN is Primary Nurse. ae4 16:17 Krystina Smith MD is Hospitalizing Provider. pm1 19:12 IV discontinued, intact, IV infiltrated, IV was stopped immediately and discontinued. rb1 Nurse notified. 19:24 Inserted saline lock: 22 gauge in right hand, using aseptic technique. ea 19:58 No provider procedures requiring assistance completed. ae4 Administered Medications: 17:10 Drug: Unasyn 3 grams Route: IVPB; Infused Over: 30 mins; Site: right antecubital; ae4 18:02 Follow up: Response: No adverse reaction; IV Status: Completed infusion rb1 18:38 Drug: Benadryl 12.5 mg Route: IVP; Site: right antecubital; ae4 18:40 Drug: vancoMYCIN 1 grams Route: IVPB; Infused Over: 2 hrs; Site: right antecubital; ae4 Point of Care Testing: Blood Glucose: 14:36 Blood Glucose: 110 mg/dL; ae4 Ranges: Outcome: 16:18 Decision to Hospitalize by Provider. pm1 20:04 Admitted to Med/surg accompanied by tech, room 203, Report called to ROMAN Wilson ae4 20:04 Condition: stable 20:30 Patient left the ED. jb4 Signatures: Dispatcher [employer] Angie Draper Rebecca, RN RN rb1 Augusto Ordonez, IT SECURITY PROJECT MANAGER IT SECURITY PROJECT MANAGER pm1 Cherelle Mendoza, RN RN Hector Hankins RN RN jb4 Iwona Easley 5 Ivon Grubbs RN RN Joselo Rios RN RN ae4
[2018-07-14] MEDS ORDERED: AMPICILLIN/SULBACT 3 GM in NA CHLORIDE 0.9% 100 ML IVPB ONE (17:00)
[2018-07-14] MEDS ORDERED: DIPHENHYDRAMINE 50 MG/ML VIAL ONE (18:54)
[2018-07-14] MEDS ORDERED: VANCOMYCIN 1.75 GM in NA CHLORIDE 0.9% 500 ML IVPB SCH (19:00)
[2018-07-14 20:37] VITALS: BMI 30.6
[2018-07-14] MEDS ORDERED: ONDANSETRON 4 MG/2 ML VIAL IV PRN (20:37)
[2018-07-14] MEDS ORDERED: ACETAMINOPHEN 500 MG TAB PO PRN (20:37)
[2018-07-14] MEDS: NYSTATIN PWDR 100000 UNIT/GM TOP SCH (21:00)
[2018-07-14] MEDS: DIPHENHYDRAMINE 50 MG/ML VIAL IV PRN (21:28)
[2018-07-14] MEDS: NA CHLORIDE 0.9% 1,000 ML IV SCH (21:30)
[2018-07-14] MEDS ORDERED: Levofloxacin500mg IV 500 MG/100 ML BAG IV ONE (22:00)
[2018-07-15] LABS: Urine Appearance CLEAR; Urine Bilirubin NEGATIVE (NEG); Urine Blood NEGATIVE (NEG); Urine Color YELLOW; Urine Glucose NEGATIVE (NEG); Urine Protein NEGATIVE (NEG); Urine Urobilinogen 0.2 mg/dL (0.2-1.0); Urine pH 6.5 (5.0-7.0)
[2018-07-15 00:20] LABS: Urine Microscopic Reflex NO UMIC
--- NOTE | 2018-07-15 02:19 | HP ---
Date of Admission: 07/14/2018 Chief Complaint: Left hand swelling and arm redness. Primary Care Physician: Dr. Fierro. Code Status: Full. History Of Present Illness: The patient is a 77-year-old male with past medical history of CVA, currently on Arixtra, hypertension, history of AAA, diverticulosis, benign prostatic hyperplasia, depression, who was in his usual state of health until 10 days prior to admission when the patient had a dog scratch and developed some erythema of his left upper extremity. The patient was started on antibiotics due to cellulitis with doxycycline. The patient has been on doxycycline for the past 9 days, however, continues to develop subjective fever, chills, worsening erythema, swelling, pain, and now with difficulty making a fist with his left hand. The patient also noticed worsening swelling, therefore went back to his primary care physician and was recommended to come to the ER for further evaluation due to failed outpatient treatment of his cellulitis. In the ER, the patient's vital signs were stable. He was afebrile. Workup revealed negative procalcitonin level. White blood cell count was normal and likely due to the fact that he has been on antibiotics for 10 days, his Doppler study did not show a DVT. The patient was then referred for admission. When seen in the ER, he was awake, alert, oriented x3, some mild distress. Past Medical History: Hypertension, BPH, depression, history of CVA with left- sided residual weakness, history of AAA, diverticulosis, previous history of GI bleed. Surgical History: Cholecystectomy, left cataract removal, hernia repair in the right inguinal side. Allergies: NO KNOWN DRUG ALLERGIES. Medications: List reviewed. Social History: The patient denies any tobacco use. The patient rarely drinks beer. No illicit drug use. The patient is , has a son. Independent in his activities of daily living. Family History: Father had an [place], at age of 69. Both brothers also of heart attack in their 60s. Review of Systems: Ten-point system reviewed, negative except as per HPI. Physical Examination: Vital Signs: Blood pressure 117/77, pulse 76, respirations 16, temperature 97.7 , O2 99% on room air. General: Awake, alert, obese male, elderly, ill appearing, in some mild distress due to pain. HEENT: Normocephalic, atraumatic. PERRLA. EOMI. Moist mucous membranes. Oropharynx is clear. Conjunctivae are anicteric. Neck: Supple. No JVD. Trachea midline. CV: S1, S2. Regular rate and rhythm. Peripheral pulses weak bilaterally. Respiratory: Moving air well bilaterally. No wheezing or stridor. No use of accessory muscles. Gastrointestinal: Abdomen is soft, nontender, nondistended. Positive bowel sounds. Extremities: No clubbing, cyanosis. The patient has pedal edema bilaterally. No calf tenderness. Neuro: Cranial nerves 2-12 intact grossly. The patient has some left-sided residual weakness. Speech is normal. Skin: The patient has erythema of the left upper extremity with swelling, edema , and blisters on the dorsum of the hand. Also has some erythema in the skin creases of his nasolabial folds and lesion on the back with mild erythema. Laboratory Data: WBC 8.8, H and H 13.4 and 39.8, platelets 275, neutrophils 55% , eosinophils 15. INR 1.16. Sodium 137, potassium 3.5, chloride 104, CO2 29, BUN 24, creatinine 1.57, glucose 91, lactate 1.2, calcium 9. Procalcitonin less than 0.05. Venous Doppler of the left lower extremity is negative for DVT. Assessment And Plan: A 77-year-old male with: 1. Left upper extremity cellulitis with failed outpatient treatment. The patient was on doxycycline for 9 days with worsening erythema, swelling, and pain. Start on IV antibiotics. Obtain blood cultures. We will consult Dr. Rudd for possible tenosynovitis and surgical intervention. 2. CAROLYN. IVFs. Monitor creatnine. Avoid NSAIDs. Likely pre-renal azotemia 3. History of CVA, currently on Arixtra with left-sided residual weakness. 4. Essential hypertension. Resume home medications as appropriate. 5. Obesity, BMI 30. 6. BPH. We will resume home medications. 7. Depression. We will continue SNRI. 8. DVT prophylaxis. The patient is already on Arixtra. Admit the patient to med-surg, place as inpatient. Length of stay, greater than 2 midnights. SAEID Voice ID: [id number] [facility]
[2018-07-15 05:45] LABS: Absolute Lymphocytes (CBC) 1.2 K/uL (0.7-4.9); Absolute Monocytes 0.6 K/uL (0.1-1.3); Absolute Neutrophil 5.8 K/uL (1.8-8.0); Basophils % 0.4 % (0-1.3); Eosinophils % 12.6 % (0-4.4); Hematocrit 38.7 % (39.6-49.0); MPV 8.7 fL (7.6-11.3); Monocytes % 7.3 % (3.3-12.3); RBC Red Blood Cell Count 4.34 M/uL (4.33-5.43)
[2018-07-15 05:54] LABS: Potassium 3.4 mmol/L (3.5-5.1)
[2018-07-15] MEDS: DIPHENHYDRAMINE 50 MG/ML VIAL IV PRN ×3 (08:30→22:09)
[2018-07-15] MEDS: NYSTATIN PWDR 100000 UNIT/GM TOP SCH ×2 (08:30→21:00)
[2018-07-15] MEDS: FINASTERIDE 5 MG TAB PO SCH (12:57)
[2018-07-15] MEDS: ASPIRIN EC 81 MG TAB PO SCH (12:57)
[2018-07-15] MEDS: FONDAPARINUX SOD 7.5 MG/0.6 ML SQ SCH (12:58)
[2018-07-15] MEDS ORDERED: VANCOMYCIN 1.75 GM in NA CHLORIDE 0.9% 500 ML IV SCH ×2 (16:00→19:00)
[2018-07-15] MEDS ORDERED: Levofloxacin 250mg IV 250 MG/50 ML BAG IV SCH (22:00)
[2018-07-15] MEDS: DOXYCYCLINE 100 MG in NA CHLORIDE 0.9% 100 ML IVPB SCH (22:11)
[2018-07-15] MEDS: SILVER SULFADIAZINE 1% 50 GM TOP SCH (22:18)
[2018-07-15] MEDS ORDERED: POTASSIUM CL SA 10 MEQ TAB PO ONE (23:34)
[2018-07-15] MEDS: NA CHLORIDE 0.9% 1,000 ML IV SCH (23:54)
[2018-07-16 06:20] LABS: Absolute Lymphocytes (CBC) 1.5 K/uL (0.7-4.9); Absolute Monocytes 0.7 K/uL (0.1-1.3); Absolute Neutrophil 4.2 K/uL (1.8-8.0); Basophils % 0.4 % (0-1.3); Eosinophils % 17.8 % (0-4.4); Hematocrit 37.2 % (39.6-49.0); Lymphocytes % 19.2 % (15.3-44.8); MPV 9.2 fL (7.6-11.3); Monocytes % 8.5 % (3.3-12.3); RBC Red Blood Cell Count 4.18 M/uL (4.33-5.43)
[2018-07-16 06:31] LABS: Potassium 3.6 mmol/L (3.5-5.1)
[2018-07-16 08:46] LABS: Blood Morphology Comment NOT SEEN (NOT SEEN); Platelet Estimate ADEQ; Urine White Blood Cell Casts OK
[2018-07-16] MEDS ORDERED: POTASSIUM CL SA 10 MEQ TAB PO ONE (09:00)
[2018-07-16] MEDS: FONDAPARINUX SOD 7.5 MG/0.6 ML SQ SCH (09:25)
[2018-07-16] MEDS: ASPIRIN EC 81 MG TAB PO SCH (09:25)
[2018-07-16] MEDS: VENLAFAXINE HCL XR 37.5MG CAP PO SCH (09:26)
[2018-07-16] MEDS: FINASTERIDE 5 MG TAB PO SCH (09:26)
[2018-07-16] MEDS: DOXYCYCLINE 100 MG in NA CHLORIDE 0.9% 100 ML IVPB SCH ×2 (09:27→22:13)
[2018-07-16] MEDS: SILVER SULFADIAZINE 1% 50 GM TOP SCH ×2 (09:28→21:00)
[2018-07-16] MEDS: NYSTATIN PWDR 100000 UNIT/GM TOP SCH ×2 (09:29→21:00)
--- NOTE | 2018-07-16 11:43 | PN ---
Date of Progress Note: 07/15/2018 Subjective: Patient seen and examined. Chart reviewed and case discussed with RN and Dr. Rudd as well as Dr. Osuna. Patient states his redness is improving. Pain is better. Medications: List reviewed. Physical Examination: Vital Signs: Temperature 97.3, heart rate 78, blood pressure 103/67, respirations 20, O2 97% on room air. General: Awake, alert, oriented x3. Elderly male, obese, not in any acute distress. CV: S1, S2. Peripheral pulses present. Regular rate and rhythm. Respiratory: Moving air well bilaterally. No wheezing. Gastrointestinal: Abdomen is soft, nontender, nondistended. Positive bowel sounds. No guarding or rigidity. Extremities: No clubbing or cyanosis. The patient has left upper extremity edema. Skin: Patient has left upper extremity erythema, skin tear along with bullae on the dorsal aspect of the hand. Unable to properly make a fist. Neurologic: Nonfocal. Some residual weakness on the left side from a CVA. Laboratory Data: Sodium 140, potassium 3.4, chloride 107, CO2 of 24, BUN 22, creatinine 1.27, glucos e 109, calcium 8.5. WBC 8.9, H and H 13.1 and 38.7, platelets 237, neutrophils 65%. Blood cultures are pending. Assessment And Plan: A 77-year-old male with. 1.Left upper extremity cellulitis, failed outpatient treatment. We will adjust IV antibiotics. ID recommends doxycycline. Cultures are pending. Appreciate ID Dr. Osuna's input and Dr. Rudd. No surgical intervention recommended at this time. 2.History of cerebrovascular accident. We will continue Arixtra. The patient has failed treatment on oral anticoagulation. 3.Essential hypertension, stable. 4.Obesity, BMI 30. 5.Benign prostatic hyperplasia, stable. 6.Major depressive disorder, currently in remission. Continue SNRI. 7.Deep venous thrombosis prophylaxis. The patient is on Arixtra. Plan, follow up on cultures. Probably will be discharged in the next 24-48 hours depending on clinica l response, currently no signs of sepsis. SA/MODL Voice ID: [id number] Report ID: [id number]
[2018-07-16] MEDS: NA CHLORIDE 0.9% 1,000 ML IV SCH (12:37)
[2018-07-16] MEDS: DIPHENHYDRAMINE 50 MG/ML VIAL IV PRN (13:20)
--- NOTE | 2018-07-16 14:41 | CON ---
History Of Present Illness: This 77-year-old, white male, right-hand dominant, who had a stroke and has decreased function, left hand. He was brushed against the dog or possibly bitten about a week ag o, treated with antibiotics. Has continued to swell the forearm. He was admitted through the emerge ncy room. I was consulted to evaluate the left forearm. Left forearm has superficial erosion approx imately 4 x 4 cm. He had some blisters good range of motion and no deep pain. Assessment: Superficial infection. Plan: Use Silvadene cream. He is on antibiotics per the primary care physician. We will check on to enriqueta. I see no indication for surgery at this time. TREASURE/PRETTY Voice ID: [id number] Report ID: [id number]
--- NOTE | 2018-07-16 17:25 | P.PN ---
Subjective Date of Service: 07/16/18 Subjective: Improving Review of Systems 10-point ROS is otherwise unremarkable Integumentary: As per HPI Physical Examination - Vital Signs Temperature: 97.9 F Blood Pressure: 126/73 Pulse: 78 Respirations: 16 Pulse Ox (%): 98 - Physical Exam General: Alert, In no apparent distress, Oriented x3, Obese HEENT: Atraumatic, PERRLA, EOMI Neck: Supple, JVD not distended Respiratory: Clear to auscultation bilaterally, Normal air movement Cardiovascular: Normal pulses, Regular rate/rhythm, Normal S1 S2, Edema Gastrointestinal: Normal bowel sounds, Soft and benign, Non-distended, No tenderness Musculoskeletal: No tenderness Integumentary: Erythema (left upper ext), Warmth Neurological: Normal speech, Normal tone, Normal affect - Studies Laboratory Last Values WBC 7.7 K/uL (4.3-10.9) 07/16/18 05:22 RBC 4.18 M/uL (4.33-5.43) L 07/16/18 05:22 Hgb 12.8 g/dL (13.6-17.9) L 07/16/18 05:22 Hct 37.2 % (39.6-49.0) L 07/16/18 05:22 MCV 88.8 fL (80-100) 07/16/18 05:22 MCH 30.6 pg (27.0-35.0) 07/16/18 05:22 MCHC 34.4 g/dL (32.0-36.0) 07/16/18 05:22 RDW 14.2 % (12.1-15.2) 07/16/18 05:22 Plt Count 228 K/uL (152-406) 07/16/18 05:22 MPV 9.2 fL (7.6-11.3) 07/16/18 05:22 Neutrophils % 54.1 % (41.7-73.7) 07/16/18 05:22 Lymphocytes % 19.2 % (15.3-44.8) 07/16/18 05:22 Monocytes % 8.5 % (3.3-12.3) 07/16/18 05:22 Eosinophils % 17.8 % (0-4.4) H 07/16/18 05:22 Basophils % 0.4 % (0-1.3) 07/16/18 05:22 Absolute Neutrophils 4.2 K/uL (1.8-8.0) 07/16/18 05:22 Absolute Lymphocytes 1.5 K/uL (0.7-4.9) 07/16/18 05:22 Absolute Monocytes 0.7 K/uL (0.1-1.3) 07/16/18 05:22 Absolute Eosinophils 1.4 K/uL (0-0.5) H 07/16/18 05:22 Absolute Basophils 0.0 K/uL (0-0.5) 07/16/18 05:22 Morphology Comment Not seen (NOT SEEN) 07/16/18 05:22 PT 13.6 SECONDS (9.5-12.5) H 07/14/18 15:00 INR 1.16 07/14/18 15:00 APTT 33.7 SECONDS (24.3-36.9) 07/14/18 15:00 Sodium 140 mmol/L (136-145) 07/16/18 05:22 Potassium 3.6 mmol/L (3.5-5.1) 07/16/18 05:22 Chloride 109 mmol/L (98-107) H 07/16/18 05:22 Carbon Dioxide 24 mmol/L (21-32) 07/16/18 05:22 BUN 19 mg/dL (7-18) H 07/16/18 05:22 Creatinine 1.26 mg/dL (0.55-1.3) 07/16/18 05:22 Estimated GFR 55 mL/min (=/>90) L 07/16/18 05:22 Glucose 111 mg/dL (74-106) H 07/16/18 05:22 POC Glucose 110 mg/dl (65-120) 07/14/18 14:36 Lactic Acid 1.2 mmol/L (0.4-2.0) 07/14/18 15:00 Calcium 8.3 mg/dL (8.5-10.1) L 07/16/18 05:22 Total Bilirubin 0.5 mg/dL (0.2-1.0) 07/14/18 15:00 Direct Bilirubin 0.1 mg/dL (0-0.2) 07/14/18 15:00 AST 11 U/L (15-37) L 07/14/18 15:00 ALT 15 U/L (12-78) 07/14/18 15:00 Alkaline Phosphatase 74 U/L (45-117) 07/14/18 15:00 Serum Total Protein 8.9 g/dL (6.4-8.2) H 07/14/18 15:00 Albumin 3.7 g/dL (3.4-5.0) 07/14/18 15:00 Globulin 5.2 g/dL (2.3-3.5) H 07/14/18 15:00 Albumin/Globulin Ratio 0.7 (1.1-1.8) L 07/14/18 15:00 Procalcitonin < 0.05 ng/mL (<0.50) 07/14/18 15:00 Urine Color Yellow 07/14/18 23:10 Urine Appearance Clear 07/14/18 23:10 Urine pH 6.5 (5.0-7.0) 07/14/18 23:10 Ur Specific Printer 1.010 (1.005-1.030) 07/14/18 23:10 Urine Ketones Negative (NEG) 07/14/18 23:10 Urine Blood Negative (NEG) 07/14/18 23:10 Urine Nitrite Negative (NEG) 07/14/18 23:10 Urine Bilirubin Negative (NEG) 07/14/18 23:10 Urine Urobilinogen 0.2 mg/dL (0.2-1.0) 07/14/18 23:10 Ur Leukocyte Esterase Negative (NEG) 07/14/18 23:10 Urine Glucose Negative (NEG) 07/14/18 23:10 Urine Total Protein Negative (NEG) 07/14/18 23:10 Microbiology Data (last 24 hrs): Microbiology 07/14/18 15:25 Blood - Blood Aerobic Blood Culture - Preliminary No growth in 24 hours. 07/14/18 15:25 Blood - Blood Anaerobic Blood Culture - Preliminary No growth in 24 hours. 07/14/18 15:00 Blood - Blood Aerobic Blood Culture - Preliminary No growth in 24 hours. 07/14/18 15:00 Blood - Blood Anaerobic Blood Culture - Preliminary No growth in 24 hours. Medications List Reviewed: Yes Assessment And Plan - Plan Assessment And Plan: A 77-year-old male with. 1. Left upper extremity cellulitis, failed outpatient treatment. Cont IV abx. Cultures are pending but prelim is neg to date. Appreciate ID Dr. Osuna' s input and Dr. Rudd. No surgical intervention recommended at this time. Pt still has erythema and swelling. 2. History of cerebrovascular accident. We will continue Arixtra. The patient has failed treatment on oral anticoagulation. 3. Essential hypertension, stable. 4. Obesity, BMI 30. 5. Benign prostatic hyperplasia, stable. 6. Major depressive disorder, currently in remission. Continue SNRI. 7. Deep venous thrombosis prophylaxis. The patient is on Arixtra. Plan, follow up on cultures. Discharge in the next 24 hours depending on clinical response, currently no signs of sepsis. Discharge Plan: Home Plan to discharge in: 24 Hours - Code Status/Comfort Care Code Status Assessed: Yes
[2018-07-16] MEDS ORDERED: DIPHENHYDRAMINE 50 MG/ML VIAL IV PRN (17:26)
[2018-07-17] MEDS: NA CHLORIDE 0.9% 1,000 ML IV SCH ×2 (01:57→02:44)
[2018-07-17 06:35] LABS: Absolute Lymphocytes (CBC) 1.4 K/uL (0.7-4.9); Absolute Monocytes 0.6 K/uL (0.1-1.3); Absolute Neutrophil 4.9 K/uL (1.8-8.0); Basophils % 0.3 % (0-1.3); Eosinophils % 14.5 % (0-4.4); Hematocrit 37.9 % (39.6-49.0); MPV 8.7 fL (7.6-11.3); Monocytes % 7.4 % (3.3-12.3); RBC Red Blood Cell Count 4.26 M/uL (4.33-5.43)
[2018-07-17 06:39] LABS: Potassium 3.5 mmol/L (3.5-5.1)
--- NOTE | 2018-07-17 07:33 | CON ---
History Of Present Illness: Patient is here for left arm cellulitis. This all started after he had his dog scratched him on his left arm after which he started developing swelling, pain and redness on his left arm. Also, developed some blisters. Denies any headache, nausea, vomiting, chest pain, ab dominal pain, constipation, or diarrhea. The patient has significant history of a stroke affecting h is left side. Also concerned about a small children at home. Feels much better now that he has been on IV antibiotic. The patient did receive a small course of doxycycline, but did not after it was g etting better initially but then it started getting worse. Past Medical History: Hypertension, BPH, depression, history of CVA and effecting left side, history of AAA, diverticulosis, previous history of GI bleed. Surgical History: Cholecystectomy, left cataract removal, hernia repair and right inguinal site surg kyaw. Allergies: NO KNOWN DRUG ALLERGIES. Medications: See MARs. Also, the patient on Levaquin and vancomycin. Review of Systems: A 10-point review was performed. Social History: Tobacco positive. Alcohol positive. Physical Examination: General: This is a 77-year-old male, sitting in chair, having lunch, not in any acute cardiopulmonar y distress. Vital Signs: Temperature 97.3, pulse 78, respirations 18, blood pressure 103/67. HEENT: Unremarkable. Neck: Supple. Lungs: Basal crackles. Heart: S1, S2. Regular. Abdomen: Soft, nontender. Bowel sounds present. Extremities: Left arm swelling with erythematous changes and small blisters on hand and open area on the forearm noted. Laboratory Data: Shows WBC 8.9, hemoglobin 13.1, platelets are 237. Chemistry shows sodium 140, pot assium 3.4, chloride 107, bicarb 24, BUN 22, creatinine 1.27, glucose 109. Micro data shows blood cu ltures are pending. Venous Doppler of the left arm shows no DVT. Assessment And Plan: Cellulitis of left arm with blisters and open denuded skin area status post dog scratch in a patient with left-sided hemiparesis secondary to stroke. Recommend to continue antibio tics total of 2 weeks. Apply Silvadene and keep left arm elevated if possible. Continue antibiotics and supportive care for [address] Smith for consult. NF/MODL Voice ID: [id number] Report ID: [id number]
[2018-07-17] MEDS: DOXYCYCLINE 100 MG in NA CHLORIDE 0.9% 100 ML IVPB SCH (08:23)
[2018-07-17] MEDS: FONDAPARINUX SOD 7.5 MG/0.6 ML SQ SCH (08:25)
[2018-07-17] MEDS: VENLAFAXINE HCL XR 37.5MG CAP PO SCH (08:25)
[2018-07-17] MEDS: FINASTERIDE 5 MG TAB PO SCH (08:25)
[2018-07-17] MEDS: NYSTATIN PWDR 100000 UNIT/GM TOP SCH (08:26)
[2018-07-17] MEDS: ASPIRIN EC 81 MG TAB PO SCH (08:26)
[2018-07-17] MEDS: SILVER SULFADIAZINE 1% 50 GM TOP SCH (08:27)
[2018-07-17 08:31] VITALS: BP 109/60; TEMP 97.7
[2018-07-17] MEDS ORDERED: POTASSIUM CL SA 10 MEQ TAB PO SCH (09:00)
[2018-07-17 09:49] VITALS: O2SAT 100
--- NOTE | 2018-07-17 16:38 | P.DS ---
Admission Date: 07/14/18 Discharge Date: 07/17/18 Disposition: ROUTINE DISCHARGE Discharge Condition: FAIR Brief History of Present Illness: The patient is a 77-year-old male with past medical history of CVA, currently on Arixtra, hypertension, history of AAA, diverticulosis, benign prostatic hyperplasia, depression, who was in his usual state of health until 10 days prior to admission when the patient had a dog scratch and developed some erythema of his left upper extremity. The patient was started on antibiotics due to cellulitis with doxycycline. The patient has been on doxycycline for the past 9 days, however, continues to develop subjective fever, chills, worsening erythema, swelling, pain, and now with difficulty making a fist with his left hand. The patient also noticed worsening swelling, therefore went back to his primary care physician and was recommended to come to the ER for further evaluation due to failed outpatient treatment of his cellulitis. In the ER, the patient's vital signs were stable. He was afebrile. Workup revealed negative procalcitonin level. White blood cell count was normal and likely due to the fact that he has been on antibiotics for 10 days, his Doppler study did not show a DVT. The patient was then referred for admission. Hospital Course: Patient is a 67-year-old male who was admitted to the hospital for left upper extremity cellulitis triggered by a dog scratch with failed outpatient treatment. Patient was started on IV antibiotics. Cultures were obtained which remained negative to date. Patient was seen by infectious disease Dr. Osuna as well as plastic surgery Dr. Rudd. Patient had significant swelling of his left upper extremity unable to close his fist which he is usually able to do despite his weakness from history of CVA. No surgical indication at this time. Patient responded well to IV antibiotics. Wound care was also initiated with Silvadene topically. Patient improved significantly. White blood cell count was normal range. No signs of sepsis. Patient was then discharged on doxycycline and Levaquin in a stable condition. Discharge diagnosis: 1. Left upper extremity cellulitis with failed outpatient treatment. 2. CAROLYN. Resolved 3. History of CVA, currently on Arixtra with left-sided residual weakness. 4. Essential hypertension. Stable 5. Obesity, BMI 30. 6. BPH. Stable 7. Depression. Stable on SNRI. 8. Hypokalemia replaced Vital Signs/Physical Exam: Temp Pulse Resp BP Pulse Ox 97.7 F 73 16 109/60 98 07/17/18 08:00 07/17/18 08:00 07/17/18 08:00 07/17/18 08:00 07/17/18 08:00 General: Alert, In no apparent distress, Oriented x3, Obese HEENT: Atraumatic, PERRLA, EOMI Neck: Supple, JVD not distended Respiratory: Clear to auscultation bilaterally, Normal air movement Cardiovascular: Regular rate/rhythm, Normal S1 S2, Edema Gastrointestinal: Normal bowel sounds, Soft and benign, Non-distended, No tenderness Integumentary: No warmth, Erythema (Left upper extremity) Neurological: Normal speech, Normal tone, Normal affect Laboratory Data at Discharge: WBC 8.1 K/uL (4.3-10.9) 07/17/18 06:05 Hgb 12.9 g/dL (13.6-17.9) L 07/17/18 06:05 Hct 37.9 % (39.6-49.0) L 07/17/18 06:05 Plt Count 224 K/uL (152-406) 07/17/18 06:05 PT 13.6 SECONDS (9.5-12.5) H 07/14/18 15:00 INR 1.16 07/14/18 15:00 APTT 33.7 SECONDS (24.3-36.9) 07/14/18 15:00 Sodium 141 mmol/L (136-145) 07/17/18 06:05 Potassium 3.5 mmol/L (3.5-5.1) 07/17/18 06:05 BUN 19 mg/dL (7-18) H 07/17/18 06:05 Creatinine 1.13 mg/dL (0.55-1.3) 07/17/18 06:05 Glucose 107 mg/dL (74-106) H 07/17/18 06:05 Total Bilirubin 0.5 mg/dL (0.2-1.0) 07/14/18 15:00 AST 11 U/L (15-37) L 07/14/18 15:00 ALT 15 U/L (12-78) 07/14/18 15:00 Alkaline Phosphatase 74 U/L (45-117) 07/14/18 15:00 Home Medications: Aspirin [Aspir-Low] 81 mg PO DAILY 07/14/18 Finasteride [Proscar*] 5 mg PO DAILY 07/14/18 Fondaparinux [Arixtra*] 7.5 mg PO DAILY 07/14/18 Venlafaxine HCl *Xr* [Effexor XR*] 37.5 mg PO DAILY 07/14/18 Acidophilus/Bulgaricus [Lactinex Packet] 1 each PO BID #30 gran.pack 07/17/18 Doxycycline Hyclate 100 mg PO BID #16 tablet 07/17/18 Levofloxacin [Levaquin] 500 mg PO DAILY #7 tablet 07/17/18 Silver Sulfadiazine Crm [Silvadene*] 1 appl TOP BID #1 jar 07/17/18 New Medications: Acidophilus/Bulgaricus [Lactinex Packet] 1 each PO BID #30 gran.pack Doxycycline Hyclate 100 mg PO BID #16 tablet Levofloxacin [Levaquin] 500 mg PO DAILY #7 tablet Silver Sulfadiazine Crm [Silvadene*] 1 appl TOP BID #1 jar Patient Discharge Instructions: f/up w PCP in 2-3 days. f/up w ID Dr. Osuna in 2 weeks. Return to ER for worsening condition Diet: AHA Activity: Ad rodolfo Followup: Walt Osuna MD [ACTIVE - CAN ADMIT] - Time spent managing pt's care (in minutes): 37
== END 2018-07-17 10:47 | disposition home health service (06) | DRG 603 ==
LOC: ER 12:13 → ERHOLD 17:03 → 2ND 20:07
PROVIDERS: ADMIT Family Medicine; ATTEND Family Medicine
DX: L03.114 Cellulitis of left upper limb (principal); N17.9 Acute kidney failure, unspecified; I69.354 Hemiplegia and hemiparesis following cerebral infarction affecting left non-dominant side; S40.812A Abrasion of left upper arm, initial encounter; S40.822A Blister (nonthermal) of left upper arm, initial encounter; I10 Essential (primary) hypertension; E66.9 Obesity, unspecified; E87.6 Hypokalemia; N40.0 Benign prostatic hyperplasia without lower urinary tract symptoms; F32.9 Major depressive disorder, single episode, unspecified; Z68.30 Body mass index [BMI] 30.0-30.9, adult; X58.XXXA Exposure to other specified factors, initial encounter; W54.8XXA Other contact with dog, initial encounter
CPT/HCPCS: 36415; 80048; 80076; 80202; 81003; 82962; 83605; 84145; 85025; 85610; 85730; 87040; 93971; 94760; 96365; 96375; 97162; 97167; 99285; J0295; J1652; J2405; J7030

== ENCOUNTER 2020-08-19 01:10 | Emergency (ER) | payer OTHER ==
[2020-08-19 01:47] LABS: Absolute Lymphocytes (CBC) 1.6 K/uL (0.7-4.9); Basophils % 0.3 % (0-1.3); Hematocrit 34.6 % (39.6-49.0); Lymphocytes % 18.8 % (15.3-44.8); MPV 8.6 fL (7.6-11.3); RBC Red Blood Cell Count 3.93 M/uL (4.33-5.43)
[2020-08-19 01:53] LABS: Protime INR 1.09
[2020-08-19 02:03] LABS: ALT/SGPT 15 U/L (12-78); AST/SGOT 10 U/L (15-37); Albumin 3.2 g/dL (3.4-5.0); Alkaline Phosphatase 66 U/L (45-117); BUN Blood Urea Nitrogen 33 mg/dL (7-18); Bicarbonate 27 mmol/L (21-32); Bilirubin Direct < 0.1 mg/dL (0-0.2); Bilirubin Total 0.2 mg/dL (0.2-1.0); Glucose Level 119 mg/dL (74-106); Lipase 101 U/L (73-393); Potassium 3.7 mmol/L (3.5-5.1); Protein, Total 7.6 g/dL (6.4-8.2); Sodium Level 143 mmol/L (136-145)
--- OUTSIDE RECORDS SUMMARY | 2020-08-19 02:38 | XMS REPORT | Continuity of Care Document ---
:1940 Author Organization [facility] t Address [address] [place] [address] Byrd [address] [place] [id number] Care Team Providers Name Role Phone MARK CASTRO APRN Attending Clinician Unavailable MERRICK RAMON M.D. Attending Clinician Unavailable GLADYS ENNIS M.D. Attending Clinician Unavailable LINO WILSON M.D. Attending Clinician Unavailable Padmini Lopez Attending Clinician BALDEMAR PATEL M.D. Attending Clinician Unavailable INDIRA CAMARGO M.D. Attending Clinician Unavailable Merrick Ramon Attending Clinician Justine Camargo Attending Clinician John Admitting Clinician Amelia Ramon Admitting Clinician Adelfo Silva Admitting Clinician Problems Condition Condition Condition Status Onset Resolution Last Treating Co mments Source Name Details Category Date Date Treatment Clinician Date NARANJO Diagnosis Active 2017-10-23 [facility] oria 10-23 19:33:00 l NARANJO 00:00: [place] 00 Active 10/23/2017 [facility] NARANJO, CVA Diagnosis Active 2017-10-30 De moria 10-23 22:17:00 l NARANJO, CVA 00:00: [place] 00 Active 10/23/2017 [facility] CVA Diagnosis Active 2014-03-12 Mem oria 03-12 18:53:00 l CVA 00:00: [place] 00 Active 03/12/2014 [facility] STROKE Diagnosis Active 2014-03-21 [facility] oria 03-12 22:45:00 l STROKE 00:00: [place] Active 03/12/2014 [facility] Rehabilita tion ACUTE Diagnosis Active 2013-11-08 Mem oria CVA(NEURO 10-08 21:51:00 l IM 08) ACUTE 00:00: [place] CVA(NEURO 00 IM 08) Active 10/08/2013 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 Ph ysici ans History of History of Problem Resolve Univers Depression Depression d it y of , , [place] controlled controlled Ph ysici ans History of History of Problem Resolve Univers hypercoagu hypercoagu d it y of lable lable [place] state state Physici ans History of History of Problem Resolve Univers migraine migraine d [place] with aura [place] Visual Visual Problem Active Univers disturbanc disturbanc it y of e e [place] Physici ans 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 ity of [place] Physici ans Depression Depression Problem Active U nivers , major, , major, ity of in in [place] remission remission Phys ici ans Dysphagia Dysphagia Problem Active Uni vers as late as late [place] of effect [place] cerebrovas cerebrovas Ph ysici cular cular ans disease disease Obstructiv Obstructiv Problem Active U nivers e sleep e sleep ity of apnea apnea [place] Physici ans Benign Benign Problem Active Univers prostatic prostatic [place]y of hypertroph hypertroph [place] Physici ans Shoulder Shoulder Problem Active Unive rs pain, left pain, left it y of [place] Physici ans Migraine Migraine Problem Active Unive rs ity of [place] Physici ans Confirmed Confirmed Problem Active Uni vers ischemic ischemic ity of stroke stroke [place] Physici ans Hemiparesi Hemiparesi Problem Active U nivers s due to s due to ity of recent recent [place] stroke stroke Physici ans Stenosis Stenosis Problem Active Unive rs of left of left ity of carotid carotid [place] artery artery Physici ans Cough in Cough in Problem Active Unive rs adult adult ity of [place] Physici ans Carotid Carotid Problem Active Univers stenosis stenosis ity of [place] Physici ans Hyperlipid Hyperlipid Problem Active U nivers emia emia ity of [place] Physici ans Cerebral Cerebral Problem Active Unive rs infarction infarction it y of due to due to [place] embolism embolism Physic i of right of right ans middle middle cerebral cerebral artery artery Cerebral Cerebral Problem Active Unive rs infarction infarction it y of due to due to [place] embolism embolism Physic i of right of right ans posterior posterior cerebral cerebral artery artery Essential Essential Problem Active Uni vers hypertensi hypertensi it y of on on [place] Physici ans Hypercoagu Hypercoagu Problem Active 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 Migraine Problem 2018-05-14 Mem oria with aura, 11:39:42 l not Migraine Angus n intractabl with aura, e, without not status intractabl migrainosu e, without s status migrainosu s 05/14/2018 [facility] Peripheral Problem 2018-05-14 M emoria vascular 11:39:42 l disease, [place] unspecifie Peripheral d vascular disease, unspecifie d 05/14/2018 [facility] Personal Problem 2018-05-14 Mem oria history of 11:39:42 l nicotine Personal Herm lindsay dependence history of nicotine dependence 05/14/2018 [facility] NIHSS Problem 2018-05-14 Memor ia score 4 11:39:42 l NIHSS [place] score 4 05/14/2018 [facility] Chronic Problem 2018-05-14 Arcadio hanh kidney 11:39:42 l disease, Chronic Kathleen nn stage 3 kidney (moderate) disease, stage 3 (moderate) 05/14/2018 [facility] Obesity, Problem 2018-05-14 Mem oria unspecifie 11:39:42 l d Obesity, Angus n unspecifie d 05/14/2018 [facility] Personal Problem 2018-05-14 Mem oria history of 11:39:42 l pulmonary Personal Her melgoza embolism history of pulmonary embolism 05/14/2018 [facility] Hypertensi Problem 2018-05-14 M emoria ve chronic 11:39:42 l kidney [place] disease Hypertensi with stage ve chronic 1 through kidney stage 4 disease chronic with stage kidney 1 through disease, stage 4 or chronic unspecifie kidney d chronic disease, kidney or disease unspecifie d chronic kidney disease 05/14/2018 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 Body mass Problem 2018-05-14 Me moria index 11:39:42 l (BMI) Body [place] 33.0-33.9, mass index adult (BMI) 33.0-33.9, adult 05/14/2018 [facility] Coma Problem 2018-05-14 Memor ia scale, 11:39:42 l best motor Coma Angus n response, scale, obeys best motor commands, response, at arrival obeys to commands, emergency at arrival department to emergency department 05/14/2018 [facility] Coma Problem 2018-05-14 Memor ia scale, 11:39:42 l eyes open, Coma Angus n spontaneou scale, s, at eyes open, arrival to spontaneou emergency s, at department arrival to emergency department 05/14/2018 [facility] Coma Problem 2018-05-14 Memor ia scale, 11:39:42 l best Coma [place] verbal scale, response, best oriented, verbal at arrival response, to oriented, emergency at arrival department to emergency department 05/14/2018 [facility] Final: Problem 2014-03-16 Memor ia 13:03:12 l Final: [place] 03/16/2014 [facility] Hypertensi Problem Resolve 2018-05-14 Memoria ve d 11:39:42 l disorder, [place] systemic Hypertensi arterial ve (disorder) disorder, systemic arterial (disorder) Resolved Problem 05/14/2018 [facility] Migraine Problem Resolve 2018-05-14 Me moria (disorder) d 11:39:42 l Migraine Angus n (disorder) Resolved Problem 05/14/2018 [facility] Peripheral Problem Resolve 2018-05-14 Memoria vascular d 11:39:42 l disease [place] (disorder) Peripheral vascular disease (disorder) Resolved Problem 05/14/2018 [facility] Depression Problem Resolve 2018-05-14 Memoria - motion d 11:39:42 l (qualifier Angus n value) Depression - motion (qualifier value) Resolved Problem 05/14/2018 [facility] Hyperlipid Problem Resolve 2018-05-14 Racqueloria emia d 11:39:42 l (disorder) Angus chinchilla Hyperlipid emia (disorder) Resolved Problem 05/14/2018 [facility] ADMINISTRT Diagnosis Active 2013-11-08 Memoria VE ENCOUNT 21:51:00 l NOS [place] ADMINISTRT VE ENCOUNT NOS Active [facility] CVA Diagnosis Active 2014-03-21 Mem oria 22:45:00 l CVA [place] Active [facility] CEREB Diagnosis Active 2017-10-30 Mem oria INFRC D/T 22:17:00 l UNSP OCCLS CEREB Kathleen nn OR STENOS INFRC D/T OF UNSP OCCLS OR STENOS OF Active [facility] Cerebrovas Problem Resolve 2005-0 2018-05-14 2018-05-14 Memoria cular d 8-23 11:39:42 11:39:42 l accident 00:00: [place] (disorder) Cerebrovas 00 cular accident (disorder) Resolved 10/09/2005 Problem 05/14/2018 [facility] History of Past Illness Condition Condition Condition Status Onset Resolution Last Treating Co mments Source Name Details Category Date Date Treatment Clinician Date Cerebral Problem 2018-05-14 2018-05-14 Memoria infarction 9-18 11:39:42 11:39:42 l due to Cerebral 03:19: Angus chinchilla embolism infarction 21 of left due to posterior embolism cerebral of left artery posterior cerebral artery 11/04/2017 05/14/2018 [facility] Allergies, Adverse Reactions, Alerts Allergy Allergy Status Severity Reaction(s) Onset Inactive Treating Comm ents Source Name Type Date Date Clinician Lipitor< Lipitor< Active 2 Memori a sup>1</s sup>1</s l up> up> [place] aspirin aspirin Active Memoria l [place] Lipitor Allergy Active Vomiting, Unive rs to drug Diarrhea, ity of (finding Nausea [place] ) Physici ans Family History Family Member Diagnosis Comments Start Date Stop Date Source Father FH: myocardial [facility] infarction Physicians Mother Family history of Univers ity of [place] blood clots Physicians Mother FH: hip fracture [facility] Physicians Social History Social Habit Start Date Stop Date Quantity Comments Source Social History 2013-10-14 2013-10-14 [facility] sivan 20:45:43 20:45:43 Smoking Status Start Date Stop Date Source Never smoked tobacco (finding) U [facility] Physicians Medications Ordered Filled Start Stop Current Ordering Indication Dosage Frequency Signature Comments Components Source Medication Medication Date Date Medication? Clinician (SIG) Name Name Benzonatate Benzonatate 2017- Yes Q0.3333D TAKE 1 Univers 100 MG Oral 100 MG Oral 9-21 CAPSULE 3 ity of Capsule Capsule 00:00: TIMES [place] DAILY. Physici ans Chlorthalid Chlorthalid 2017-0 Yes 1 QD TAKE 1 Univers one 25 MG one 25 MG 9-21 TABLET ity of Oral Tablet Oral Tablet 00:00: DAILY. Physici ans Topiramate Topiramate 2017- Yes 1 QD TAKE 1 Univers 25 MG Oral 25 MG Oral 9-21 TABLET i ty of Tablet Tablet 00:00: DAILY Physici ans Spironolact Spironolact 2017-0 Yes 1 QD TAKE 1 Univers one 50 MG one 50 MG 9-21 TABLET ity of Oral Tablet Oral Tablet 00:00: DAILY. Physici ans clopidogrel 2017-0 Yes 75 mg = 1 M emoria 75 mg oral 08 tab, PO, l tablet 18:29: Daily, # [place] 00 30 tab, 3 Refill(s), Pharmacy: [facility] 482 topiramate 2017-0 Yes 25 mg = 1 Me moria 25 mg oral 08 tab, PO, l tablet 18:29: Daily, # [place] 00 30 tab, 2 Refill(s), Pharmacy: [facility] 482 topiramate 2017-0 No Notes: Memor ia 10-25 (Same As: l 14:00: Topamax) [place] 00 "Do Not Crush" Plavix 2017-0 No 75 mg, Memoria 10-25 Route: PO, l 14:00: Drug form: [place] 00 TAB, Daily, Dosing Weight 104.545, kg, Start date: 10/25/17 9:00:00 CDT, Duration: 30 day, Stop date: 11/23/17 9:00:00 CDT Valproic 2017-0 No Notes: Memoria Acid 100 10-24 Dilute in l MG/ML 20:46: at least [place] Injectable 00 50ml D5W Solution or NS. Infusion rate = 20 mg/min (Same As: Depacon) Magnesium No Notes: Memori a Sulfate 10-24 WASTE: F/P l 20:46: - Sink; E - Municipal Trash Bin NS (Bolus) No 500 mL, Arcadio hanh IV 10-24 500 ml/hr, l 20:46: Infuse Over: 1 hr, Route: IV, 500, Drug form: INJ, ONCE, Priority: STAT, Dosing Weight 104.545 kg, Start date: 10/24/17 15:46:00 CDT, Stop date: 10/24/17 15:46:00 CDT Plavix No Notes: Memoria 10-24 (Same As: l 19:40: Plavix) Saline No Notes: Memoria Flush 0.9% 10-24 (Same as: l 14:00: BD Posiflush) Docusate No Notes: Memoria 10-24 (Same as: l 14:00: Colace) (Do Not Crush) Potassium No 40 mEq, 30 Me moria Chloride 10-24 mL, Route: l 1.33 MEQ/ML 14:00: PO, Drug He rmann Oral 00 form: LIQ, Solution Daily, Dosing Weight 104.545, kg, Start date: 10/24/17 9:00:00 CDT, Duration: 30 day, Stop date: 11/22/17 9:00:00 CDT fondaparinu No Notes: Arcadio hanh x 10-24 (Same as l 14:00: Arixtra) Passthroug h med Spironolact No Notes: Arcadio hanh one 10-24 (Same As: l 14:00: Aldactone) venlafaxine No Notes: Do M emoria 10-24 not open, l 14:00: crush, or chew. (Same As: Effexor XR) Finasteride No Notes: Arcadio hanh 10-24 (Same as: l 14:00: Proscar) "Do Not Crush" Women of childbeari ng age should not touch or handle broken tablets Potassium No Notes: Memori a Chloride 10-24 (Same as: l 1.33 MEQ/ML 13:41: Potassium H ermann Oral 00 Chloride) Solution heparin No Notes: Memoria 10-24 porcine l 13:00: heparin [place] 00 tramadol Yes 50 mg = 1 Arcadio hanh hydrochlori 10-24 tab, PO, l de 50 MG 10:57: Q8H, PRN Kathleen nn Oral Tablet 00 Pain, # 60 tab, 0 Refill(s) Chlorthalid Yes 25 mg = 1 M emoria one 25 MG 10-24 tab, PO, l Oral Tablet 10:57: Daily, # He rmann 00 90 tab, 1 Refill(s) finasteride Yes 5 mg = 1 Me moria 5 mg oral 10-24 tab, PO, l tablet 10:57: Daily, # [place] 00 90 tab, 1 Refill(s) benzonatate Yes 100 mg = 1 Memoria 100 mg oral 10-24 cap, PO, l capsule 10:57: TID, PRN Angus n 00 cough, do not crush or chew, # 30 cap, 0 Refill(s) fondaparinu Yes 7.5 mg = Me moria x 7.5 10-24 0.6 ml, l mg/0.6 mL 10:57: SUB-Q, Angus n subcutaneou 00 Daily, # 3 s solution ml, 0 Refill(s) venlafaxine No 37.5 mg = M emoria 37.5 mg 10-24 1 cap, PO, l oral 10:57: Daily, # [place] capsule, 00 90 cap, 0 extended Refill(s) release spironolact Yes 25 mg = 1 M emoria one 25 mg 10-24 tab, PO, l oral tablet 10:57: Daily, # He rmann 00 90 tab, 1 Refill(s) Zofran No Notes: Memoria 10-24 (Same as: l 08:10: Zofran) [place] 00 MEDICATION WASTE Product Size: 4 mg Product Wasted: ___ mg Saline No Notes: Memoria Flush 0.9% 10-24 (Same as: l 08:01: BD Posiflush) Tylenol No Notes: Do Memor ia 10-24 not exceed l 00:49: 4 gm/day. (Same as: Tylenol) Benadryl No 25 mg, Memoria 10-23 Route: l 22:42: IVP, ONCE, Dosing Weight 104.545, kg, Priority: STAT, Start date: 10/23/17 17:42:00 CDT, Stop date: 10/23/17 17:42:00 CDT Reglan No 10 mg, Memoria 10-23 Route: l 22:42: IVP, Drug form: INJ, ONCE, Dosing Weight 104.545, kg, Priority: STAT, Start date: 10/23/17 17:42:00 CDT, Stop date: 10/23/17 17:42:00 CDT traMADol traMADol Yes INDIRA TAKE ONE Univers HCl - 50 MG HCl - 50 MG 1-19 IFEJIKA TABLET BY ity of Oral Tablet Oral Tablet 00:00: M.D. MOUTH [place] 00 EVERY 6 TO Physici 8 HOURS ans NEEDED FOR PAIN Fondaparinu Fondaparinu Yes MERRICK INJECT Univers x Sodium x Sodium 4-10 RAMON 7.5MG ity of 7.5 7.5 00:00: M.D. SUBCUTANEO [place] MG/0.6ML MG/0.6ML 00 USLYDAILY Ph ysici Subcutaneou Subcutaneou a ns s Solution s Solution Finasteride Finasteride Yes JO DESHPANDE 1 QD TAKE 1 Univers 5 MG Oral 5 MG Oral 4-10 M.D. TABLET ity of Tablet Tablet 00:00: DAILY. 00 Physici ans rosuvastati Yes 40 mg = 1 M emoria n 40 mg 1-26 tab, PO, l oral tablet 15:25: Bedtime, # 00 90 tab, 0 Refill(s) fondaparinu Yes 7.5 mg = Me moria x 7.5 1-26 0.6 ml, l mg/0.6 mL 15:16: SUB-Q, Ang[place] n subcutaneou 00 Daily, # s solution 18 mL, 1 Refill(s) venlafaxine Yes 37.5 mg = M emoria 37.5 mg 03-14 1 cap, PO, l oral 15:14: Daily, # [place] capsule, 18 30 cap, 0 extended Refill(s) release 0.6 ML Yes 7.5 mg = Memoria Fondaparinu 03-14 0.6 ml, l x sodium 15:14: SUB-Q, [place] 12.5 MG/ML 00 Daily, # Prefilled 54 mL, 1 Syringe Refill(s) [Arixtra] Arixtra No Notes: Memoria 03-14 (Same as l 15:13: Arixtra) [place] 00 Non-Formu larry Drug Passthroug h med venlafaxine No Notes: Do M emoria 03-14 not open, l 15:00: crush, or [place] 00 chew. (Same As: Effexor XR) Neutra-Phos No Notes: Arcadio hanh 03-14 (Same as: l 12:45: Neutra-Paul [place] 00 s) Each 1.25 gm pkt has 250mg phosphorou s. Mix w/2.5oz water and stir. Acetaminoph No Notes: Do M emoria en 03-14 not exceed l 10:41: 4 gm/day. [place] 00 (Same as: Tylenol) Lactated No 1,000 mL, Arcadio hanh Ringers IV 03-13 Rate: 75 l 1,000 mL 19:00: ml/hr, Infuse over: 13.3 hr, Route: IV, Dosing Weight 104.545 kg, Total Volume: 1,000, Start date: 03/13/14 13:00:00, Duration: 30 day, Stop date: 04/12/14 12:59:00 warfarin 10 No 0 Memori a mg oral 1-25 Refill(s) l tablet 18:12: [place] 00 warfarin No 0 Memoria 7.5 mg oral 1-25 Refill(s) l tablet 18:12: [place] 00 Warfarin No 0 Memoria 1-25 Refill(s) l 18:12: [place] 00 Saline No Notes: Memoria Flush 0.9% 25 (Same as: l 15:00: BD [place] 00 Posiflush) Saline No Notes: Memoria Flush 0.9% 25 (Same as: l 04:21: BD [place] 00 Posiflush) Labetalol No 105mmHg Arcadio hanh 03-13 l 04:21: [place] 00 Coumadin No Notes: Memoria 03-13 Nurse to l 04:16: ensure [place] 00 documentat ion of patient education per anticoagul ation policy. Avoid large intake of vitamin-K containing foods diet. (Same As: Coumadin) Lovenox No Notes: Memoria 03-13 Nurse to l 04:12: ensure [place] 00 documentat ion of patient education per anticoagul ation policy. (Same as: Lovenox) Iohexol No Special Memoria 03-13 Instructio l 00:26: ns: Dose = 00 2.2ml/kg, Max dose = 100ml -- "To be infused by Radiology Staff ONLY" Tylenol 325 Tylenol 325 2013-02 Yes JO DESHPANDE Q6H TAKE 1 T O Univers MG Oral MG Oral 0-10 M.D. 2 TABLETS ity of Tablet Tablet 00:00: EVERY 6 00 HOURS Physici NEEDED. ans Venlafaxine Venlafaxine 2013-02 Yes 1 QD TAKE 1 Univers HCl - 75 MG HCl - 75 MG 0-10 TABLET ity of Oral Tablet Oral Tablet 00:00: DAILY. 00 Physici ans fondaparinu Yes 7.5 mg = Me moria x 7.5 9-03 0.6 mL, l mg/0.6 mL 20:16: SUB-Q, Angus n subcutaneou 38 Q24H, # 10 s solution mL, 1 Refill(s) venlafaxine Yes 37.5 mg = M emoria 37.5 mg 9-03 1 cap, PO, l oral 20:16: Daily, # [place] capsule, 00 30 cap, 0 extended Refill(s) release losartan 25 Yes 12.5 mg = M emoria mg oral 03 0.5 tab, l tablet 20:16: PO, Daily, Kathleen nn 00 # 30 tab, 0 Refill(s) Finasteride Yes 5 mg = 1 Me moria 5 MG Oral -03 tab, PO, l Tablet 20:16: Daily, # [place] [Proscar] 00 30 tab, 0 Refill(s) Potassium Yes 20 mEq = 1 Me moria Chloride 20 03 tab, PO, l MEQ 20:16: Daily, # [place] Extended 00 30 tab, 0 Release Refill(s) Tablet tamsulosin Yes 0.4 mg = 1 M emoria 0.4 mg oral 03 cap, PO, l capsule 20:16: After [place] 00 Dinner, # 30 cap, 0 Refill(s) temazepam Yes 15 mg = 1 Mem oria 15 mg oral 03 cap, PO, l capsule 20:16: Bedtime, Angus n 00 Insomnia, # 30 cap, 0 Refill(s) ciprofloxac Yes 250 mg = 1 Memoria in 250 mg 10-20 tab, PO, l oral tablet 20:16: Q12H, # 4 H ermann 00 tab, 0 Refill(s) Flomax No Notes: Memoria 10-18 (Same As: l 22:00: Flomax) "Do Not Crush" warfarin No 7.5 mg = 1 Mem oria 7.5 mg oral 10-15 tab, PO, l tablet 23:42: Daily, # [place] 00 30 tab, 0 Refill(s) Ciprofloxac No Notes: May Memoria in 10-15 interfere l 18:00: w/enteral feedings - Take 1 hr before or 2 hrs after antacids, dairy pdt & minerals. On empty stomach. Potassium No Notes: Memori a Chloride 10-15 (Same as: l 14:00: K-Dur 20) "Do Not Crush" With food and full glass of water Losartan No Notes: Memoria 10-15 (Same as: l 14:00: Cozaar) Effexor XR No Notes: Do Me moria 10-15 not open, l 14:00: crush, or chew. (Same As: Effexor XR) Finasteride No Notes: Arcadio hanh 10-15 (Same as: l 14:00: Proscar) "Do Not Crush" Saline No Notes: Memoria Flush 0.9% 10-15 (Same as: l 02:00: BD Posiflush) Docusate No Notes: Memoria 10-15 (Same as: l 02:00: Colace) (Do Not Crush) Arixtra No Notes: Memoria 10-14 (Same as l 20:13: Arixtra) Non-Formu larry Drug Passthroug h med Saline No Notes: Memoria Flush 0.9% 10-14 (Same as: l 20:12: BD Posiflush) Temazepam No Notes: Memori a 10-14 (Same As: l 20:12: Restoril) Bisacodyl No Notes: Memori a 10-14 (Same As: l 20:12: Dulcolax, Bisco-Lax) Ondansetron No Notes: Arcadio hanh 10-14 (Same as: l 20:12: Zofran) Milk of No Notes: Memoria Magnesia 10-14 (Same as: l 20:12: Milk of Magnesia, MOM) Acetaminoph No Notes: Do M emoria en 10-14 not exceed l 20:12: 4 gm/day. (Same as: Tylenol) Ciprofloxac No Notes: May Memoria in 10-14 interfere l 20:00: w/enteral feedings - Take 1 hr before or 2 hrs after antacids, dairy pdt & minerals. On empty stomach. Benadryl No Notes: Memoria 10-14 (Same as: l 16:14: Benadryl) fondaparinu Yes 7.5 mg = Me moria x 7.5 10-14 0.6 mL, l mg/0.6 mL 15:49: SUB-Q, Angus n subcutaneou 00 Q24H, # 10 s solution mL, 1 Refill(s) Benadryl No Notes: Memoria 8-27 (Same as: l 09:41: Benadryl) Zofran No Notes: Memoria 8- (Same as: l 09:34: Zofran) Arixtra No Notes: Memoria 8- (Same as l 19:00: Arixtra) Non-Formu larry Drug Passthroug h med Warfarin No Notes: Memoria 8- Nurse to l 22:00: ensure documentat ion of patient education per anticoagul ation policy. Avoid large intake of vitamin-K containing foods diet. (Same As: Coumadin) Potassium No 20 mEq, 1 Mem oria Chloride 8-25 tab, l 14:37: Route: PO, Drug form: ERTAB, Daily, Dosing Weight 100, kg, Start date: 10/11/13 9:37:00, Duration: 30 day, Stop date: 11/10/13 9:00:00 Losartan No Notes: Memoria 8 (Same as: l 14:00: Cozaar) Warfarin No Notes: Memoria 8 Nurse to l 22:00: ensure documentat ion of patient education per anticoagul ation policy. Avoid large intake of vitamin-K containing foods diet. (Same As: Coumadin) Magnesium No 2 gm, 50 Arcadio hanh Sulfate 8-24 mL, Route: l 13:00: IVPB, Drug form: INJ, Q2H, Dosing Weight 100, kg, Total dose = 4 gm, Start date: 10/10/13 8:00:00, Duration: 2 doses or times, Stop date: 10/10/13 10:00:00 Potassium No Notes: Memori a Chloride 8-24 (Same as: l 13:00: KCL) Infuse no faster than 10 mEq/hr if given peripheral ly. Lipitor No Notes: Memoria 8- Same as l 02:00: Lipitor Coumadin No Notes: Memoria 8- Nurse to l 22:00: ensure [place] 00 documentat ion of patient education [facility]. Avoid large intake of vitamin-K containing foods diet. (Same As: Coumadin) Effexor XR No Notes: Do Me moria 10-09 not open, l 14:00: crush, or [place] 00 chew. (Same As: Effexor XR) Proscar No Notes: Memoria 10-09 (Same as: l 14:00: Proscar) [place] 00 "Do Not Crush" Aspirin 325 No Notes: (Do Memoria MG Enteric 10-09 Not Crush) l Coated 14:00: Do not [place] Tablet 00 crush or chew. heparin No 500 mL, Memoria additive 10-09 Rate: l 25,000 unit 04:55: 23.08 Kathleen nn [14 00 ml/hr, unit/kg/hr] Infuse + Premix over: 21.7 Diluent hr, Route: Dextrose 5% IV, Dosing 500 mL Weight 82.42 kg, Total Volume: 500 mL, Start date: 10/08/13 23:55:00, Duration: 30 day, Stop date: 11/07/13 23:54:00 Saline No Notes: Memoria Flush 0.9% 10-09 Same as: l 02:00: BD [place] 00 Posiflush Sterile Lovenox No Notes: Memoria 10-08 (Same as: l 19:59: Lovenox) [place] 00 iodixanol No Notes: Memori a 10-08 (Same as: l 19:28: Visipaque) [place] . Saline No Notes: Memoria Flush 0.9% 10-08 Same as: l 16:44: BD [place] 00 Posiflush Sterile Acetaminoph No Notes: Do M emoria en 10-08 not exceed l 16:44: 4 gm/day. [place] (Same as: Tylenol) Labetalol No 110mmHg Arcadio hanh 10-08 l 16:44: [place] 00 Chlorthalid Yes Special Mem oria one 25 MG 10-08 Instructio l Oral Tablet 16:33: ns: take He rmann 1/2 tab Finasteride Yes 5 mg = 1 Me moria 5 MG Oral 8-22 tab, PO, l Tablet 16:33: Daily, # [place] [Proscar] 00 30 tab, 0 Refill(s) Spironolact Yes 25 mg = 1 M emoria one 25 MG 8-22 tab, PO, l Oral Tablet 16:33: Daily, # Cj rmlindsay [Aldactone] 00 180 tab, 0 Refill(s) losartan 25 Yes 25 mg = 1 M emoria mg oral 8-22 tab, PO, l tablet 16:33: Daily, # Amado 00 30 tab, 0 Refill(s) 24 HR Yes 37.5 mg = Memoria venlafaxine 8-22 1 cap, PO, l 37.5 MG 16:33: Daily, # Angus n Extended 00 30 cap, 0 Release Refill(s) Capsule [Effexor] Lisinopril No 0 Memoria 8-22 Refill(s) l 16:30: Amado 00 Lasix No 0 Memoria 8-22 Refill(s) l 16:30: [place] 00 Warfarin No 7.5 mg = 1 Mem oria Sodium 7.5 8-22 tab, PO, l MG Oral 16:30: Daily, # Angus n Tablet 00 30 tab, 0 [Coumadin] Refill(s) Immunizations Ordered Immunization Filled Immunization Date Status Commen ts Source Name Name Influenza Unknown Completed [facility] Vital Signs Vital Name Observation Time Observation Value Comments Source Weight 2020-04-18 190 [lb_av] [facility] 13:37:00 [place] [facility] Body mass index 2020-04-18 27.26 kg/m2 [place] [facility] f (BMI) [Ratio] 13:37:00 [place] [facility] [facility] Body temperature 2020-04-18 97.8 [degF] Method: [facility] 13:37:00 Temporal [place] [facility] Heart Rate 2020-04-18 57 /min Location: L [facility] 13:37:00 Brachial [place] [facility] Artery; Quality: Normal Respiratory rate 2020-04-18 18 /min Quality: Normal [facility] 13:37:00 [place] [facility] O2 SAT 2020-04-18 100 % Source: [facility] 13:37:00 [place] [facility] Systolic blood 2020-04-18 121 mm[Hg] Location: [facility]; [place] of pressure 13:37:00 Position: [place] [facility] Sitting Diastolic blood 2020-04-18 82 mm[Hg] Location: [facility]; [facility] pressure 13:37:00 Position: [place] [facility] Sitting Body height 2020-04-18 70 [in_us] [facility] 13:37:00 [place] [facility] BP Systolic 2018-06-05 122 mm[Hg] Location: [facility]; [facility] 10:39:00 Position: [place] [facility] Sitting BP Diastolic 2018-06-05 78 mm[Hg] Location: [facility]; [facility] 10:39:00 Position: [place] [facility] Sitting Height 2018-06-05 70 [in_us] [facility] 10:39:00 [place] [facility] Weight 2018-06-05 218 [lb_av] [facility] 10:39:00 [place] [facility] Body Mass Index 2018-06-05 31.28 kg/m2 [facility] o f Calculated 10:39:00 [place] [facility] Heart Rate 2018-06-05 72 /min Location: [facility] 10:39:00 Brachial [place] [facility] Artery; BP Systolic 2017-12-05 101 mm[Hg] Location: [facility]; [facility] 15:01:00 Position: [place] [facility] Sitting BP Diastolic 2017-12-05 73 mm[Hg] Location: [facility]; [facility] 15:01:00 Position: [place] [facility] Sitting Height 2017-12-05 70 [in_us] University 15:01:00 [place] [facility] Heart Rate 2017-12-05 73 /min [facility] 15:01:00 [place] [facility] BP Systolic 2017-11-07 100 mm[Hg] Location: [facility]; [place] [facility] 08:18:00 Position: [place] [facility] Sitting BP Diastolic 2017-11-07 74 mm[Hg] Location: [facility]; [facility] 08:18:00 Position: [place] [facility] Sitting Height 2017-11-07 70 [in_us] [place] [facility] 08:18:00 [place] [facility] Weight 2017-11-07 208.5625 [lb_av] [facility] 08:18:00 [place] [facility] Body Mass Index 2017-11-07 29.93 kg/m2 University o f Calculated 08:18:00 [place] [facility] Heart Rate 2017-11-07 109 /min Location: [facility] 08:18:00 Brachial [place] [facility] Artery; Respitory Rate 2017-10-25 [facility] 19:00:00 Systolic (mm Hg) 2017-10-25 [facility] 19:00:00 Diastolic (mm Hg) 2017-10-25 [facility] 19:00:00 Respitory Rate 2017-10-25 [facility] 18:00:00 Systolic (mm Hg) 2017-10-25 [facility] 18:00:00 Diastolic (mm Hg) 2017-10-25 [facility] 18:00:00 Respitory Rate 2017-10-25 [facility] 17:00:00 Systolic (mm Hg) 2017-10-25 [facility] 17:00:00 Diastolic (mm Hg) 2017-10-25 [facility] 17:00:00 Temperature Oral 2017-10-25 97.9 F [facility] (F) 16:02:00 Temperature Oral 2017-10-25 97.0 F [facility] (F) 12:29:00 Temperature Oral 2017-10-25 98.3 F [facility] (F) 08:51:00 Height 2017-10-24 177.8 cm [facility] n 10:30:00 Weight 2017-10-24 [facility] 10:30:00 BMI Calculated 2017-10-24 [facility] 10:30:00 Heart Rate 2017-10-24 [facility] n 10:00:00 Heart Rate 2017-10-24 [facility] 09:57:00 Heart Rate 2017-10-24 [facility] n 06:20:00 Temperature 2017-07-11 98.2 [degF] Method: Oral [place] [facility] 15:22:00 [place] [facility] Heart Rate 2017-07-11 73 /min Location: R [facility] 15:22:00 Brachial [place] [facility] Artery; Quality: Normal Respiration Rate 2017-07-11 12 /min Quality: Normal [facility] 15:22:00 [place] [facility] BP Systolic 2017-07-11 106 mm[Hg] Location: [facility]; [facility] 15:22:00 Position: [place] [facility] Sitting BP Diastolic 2017-07-11 63 mm[Hg] Location: [facility] 15:22:00 Position: [place] [facility] Sitting Height 2017-07-11 70 [in_us] University 15:22:00 [place] [facility] Weight 2017-07-11 219.2 [lb_av] [facility] 15:22:00 [place] [facility] Body Mass Index 2017-07-11 31.45 kg/m2 University o f Calculated 15:22:00 [place] [facility] Weight 2014-03-14 [facility] 18:23:00 BMI Calculated 2014-03-14 [facility] 18:23:00 Height 2014-03-14 177.8 cm [facility] n 18:23:00 Diastolic (mm Hg) 2014-03-14 [facility] 18:02:00 Respitory Rate 2014-03-14 [facility] 18:02:00 Systolic (mm Hg) 2014-03-14 [facility] 18:02:00 Temperature Oral 2014-03-14 98.3 F [facility] (F) 18:02:00 Heart Rate 2014-03-14 [facility] n 18:02:00 Heart Rate 2014-03-14 [facility] 14:11:00 Respitory Rate 2014-03-14 [facility] 14:11:00 Temperature Oral 2014-03-14 98.7 F [facility] (F) 14:11:00 Systolic (mm Hg) 2014-03-14 [facility] 14:11:00 Diastolic (mm Hg) 2014-03-14 [facility] 14:11:00 Temperature Oral 2014-03-14 98.6 F [facility] (F) 09:21:00 Diastolic (mm Hg) 2014-03-14 [facility] 09:21:00 Respitory Rate 2014-03-14 [facility] 09:21:00 Systolic (mm Hg) 2014-03-14 [facility] 09:21:00 Heart Rate 2014-03-14 [facility] 09:21:00 Height 2014-03-13 177.8 cm [facility] 06:08:00 BMI Calculated 2014-03-13 [facility] 06:08:00 Weight 2014-03-13 [facility] 06:08:00 Height 2014-03-12 177.8 cm [facility] 22:26:00 Weight 2014-03-12 [facility] 22:26:00 BMI Calculated 2014-03-12 [facility] 22:26:00 Systolic (mm Hg) 2013-10-21 [facility] 13:00:00 Diastolic (mm Hg) 2013-10-21 [facility] 13:00:00 Respitory Rate 2013-10-21 [facility] 13:00:00 Temperature Oral 2013-10-21 98.6 F [facility] (F) 13:00:00 Heart Rate 2013-10-21 [facility] 13:00:00 Temperature Oral 2013-10-21 98.0 F [facility] (F) 04:11:00 Diastolic (mm Hg) 2013-10-21 [facility] 04:11:00 Respitory Rate 2013-10-21 [facility] 04:11:00 Systolic (mm Hg) 2013-10-21 [facility] 04:11:00 Heart Rate 2013-10-21 [facility] 04:11:00 Heart Rate 2013-10-20 [facility] 04:16:00 Temperature Oral 2013-10-20 98.1 F [facility] (F) 04:16:00 Diastolic (mm Hg) 2013-10-20 [facility] 04:16:00 Systolic (mm Hg) 2013-10-20 [facility] 04:16:00 Respitory Rate 2013-10-19 [facility] 21:00:00 Height 2013-10-14 177.8 cm [facility] 20:12:00 Weight 2013-10-14 [facility] 20:12:00 BMI Calculated 2013-10-14 [facility] 20:12:00 Temperature Oral 2013-10-14 97.1 F [facility] (F) 19:09:00 Diastolic (mm Hg) 2013-10-14 [facility] 19:09:00 Systolic (mm Hg) 2013-10-14 [facility] 19:09:00 Respitory Rate 2013-10-14 [facility] 19:09:00 Heart Rate 2013-10-14 [facility] n 19:09:00 Systolic (mm Hg) 2013-10-14 [facility] 14:15:00 Diastolic (mm Hg) 2013-10-14 [facility] 14:15:00 Respitory Rate 2013-10-14 [facility] 14:15:00 Temperature Oral 2013-10-14 97.9 F [facility] (F) 14:15:00 Heart Rate 2013-10-14 [facility] n 14:15:00 Diastolic (mm Hg) 2013-10-14 [facility] 09:49:00 Systolic (mm Hg) 2013-10-14 [facility] 09:49:00 Temperature Oral 2013-10-14 98.0 F [facility] C[facility] (F) 09:49:00 Heart Rate 2013-10-14 [facility] 09:49:00 Respitory Rate 2013-10-14 [facility] 09:49:00 Weight 2013-10-09 [facility] 05:18:00 Weight 2013-10-08 [facility] 16:06:00 Height 2013-10-08 175.26 cm [facility] 16:06:00 BMI Calculated 2013-10-08 [facility] 16:06:00 Weight 2013-10-08 [facility] 15:57:00 BMI Calculated 2013-10-08 [facility] 15:57:00 Height 2013-10-08 177.8 cm [facility] 15:57:00 Procedures Procedure Date / Time Performing Clinician Source Performed [UTP] Neurosonology Lab 2020-04-18 00:00:00 [facility] Physicians MRI Brain stroke protocol 2020-04-18 00:00:00 [facility] [id number] Physicians EPITOME - EEG 2019-03-19 00:00:00 [facility] Physicians MRI Brain stroke protocol 2019-03-19 00:00:00 [facility] [id number] [facility] LIPID PANEL 2017-12-05 00:00:00 [facility] Physicians [UTP] Neurosonology Lab 2017-12-05 00:00:00 [facility] Physicians [UTP] Neurosonology Lab 2017-11-07 00:00:00 [facility] Physicians [[facility] VITAMIN B12 2017-11-07 00:00:00 [facility] Physicians Vein procedure 2012-10-07 05:00:00 [facility] Her melgoza History of Appendectomy [facility] Physicians History of Hernia Repair [facility] Physicians Appendectomy [facility] Hernia repair [facility] Plan of Care Planned Activity Planned Date Details Comments Source Diagnostic Test 2017-11-07 [UTP] Neurosonology Unive rsity of Pending 00:00:00 Lab [code = [UTP] [place] [facility] Neuro[facility]] Diagnostic Test 2017-11-07 [UTP] Neurosonology Unive rsity of Pending 00:00:00 Lab [code = [UTP] [place] [facility]] Diagnostic Test 2017-11-07 [UTP] Neurosonology Unive rsity of Pending 00:00:00 Lab [code = [UTP] [place] [facility] Neuro[facility]] Diagnostic Test 2017-05-29 [UTP] Neurosonology Unive rsity of Pending 00:00:00 Lab [code = [UTP] [place] [facility]] Diagnostic Test 2017-05-29 [UTP] Neurosonology Unive rsity of Pending 00:00:00 Lab [code = [UTP] [place] [facility] Neuro[facility]] Future Scheduled EPITOME - EEG [code Before next Univ ersity of Test = EPITOME - EEG] appointment [place] [facility] Future Scheduled MRI Brain stroke Before next Univers ity of Test protocol 63079 [code appointment [place] [facility]ys[facility] = [id number]] Future Scheduled EPITOME - EEG [code Before next Univ ersity of Test = EPITOME - EEG] appointment [facility] Future Scheduled MRI Brain stroke Before next Univers ity of Test protocol 95633 [code appointment [place] [facility] = [id number]] Encounters Start End Encounter Admission Attending Care Care Encounter Source Date/Time Date/Time Type Type Clinicians Facility Department ID 2020-04-18 2020-04-18 AppointAMNUEL [facility] - [id number] Univers 13:30:00 13:30:00 t; [facility] [place] [facility] 2019-08-27 2019-08-27 Appointashu [facility] [id number] Univers 11:00:00 11:00:00 t; Frantz SIN M.D. [place] ANDREW, Physici M.D. ans 2019-06-11 2019-06-11 MANUEL Vivar UTP [id number] Univers 09:30:00 09:30:00 t; Frantz SIN M.D. [place] ANDREW, Physici M.D. ans 2019-06-04 2019-06-04 MANUEL Vivar [facility] [id number] Univers 10:30:00 10:30:00 t; Frantz SIN M.D. [place] Maryuri SIN M.D. ans 2018-06-05 2018-06-05 Appointashu RAMON [facility] Neurology - [id number] Univers 10:30:00 10:30:00 t; Maria Alejandra SIN M.D. [facility] Amelia SIN M.D. ans 2017-12-05 2017-12-05 Appointashu ENNIS [facility] Neurology [id number] Univers 10:30:00 10:30:00 t; GLADYS ENNIS it y of ALEXANDRA, M.D. [place] Chetan Wahl ans 2017-11-28 2017-11-28 [facility] [id number] Univers 10:30:00 10:30:00 t; Frantz SIN M.D. [place] Maryuri SIN M.D. ans 2017-11-28 2017-11-28 [facility] [id number] Univers 10:00:00 10:00:00 t; Frantz SIN M.D. [place] Maryuri SIN M.D. ans 2017-11-28 2017-11-28 Linwood [facility] Neurology [id number] Univers 10:00:00 10:00:00 t; Frantz SIN M.D. [place] ANDREW, Physici M.D. ans 2017-11-28 2017-11-28 Linwood [facility] Neurology [id number] Univers 07:30:00 07:30:00 t; Frantz SIN M.D. [place] Maryuri SIN M.D. ans 2017-11-07 2017-11-07 Linwood WILSON [facility] Neurology [id number] Univers 08:00:00 08:00:00 t; Chetan HUYNH [place] SAIF, M.D. Physi ci ans 2017-10-23 2017-10-25 Outpatient John [facility] [id number] 17:12:00 14:35:00 Padmini 49 2017-07-11 2017-07-11 [id number] Univers 15:30:00 15:30:00 t; luke MCDERMOTT M.D. [place] Maryuri MCDERMOTT M.D. ans 2016-11-05 2016-11-[facility] [id number] Univers 15:15:00 15:15:00 t; Chetan BOB y of [place], [place] Maryuri BOB M.D. ans 2015-09-05 2015-09-05 [facility] [id number] Univers 13:45:00 13:45:00 t; Chetan BOB y of [place], [place] Maryuri BOB M.D. ans 2014-03-12 2014-03-14 Outpatient [facility] [id number] 16:26:00 14:00:00 Merrick Cisneros 24 2013-10-14 2013-10-21 Outpatient [facility] [id number] 14:55:00 14:20:00 Indira Fletcher 39 2013-10-08 2013-10-14 Outpatient [facility] [id number] 10:58:00 14:25:00 Merrick Cisneros 34 Results Test Description Test Time Test Comments Results Result Comments Source CHEM PANEL 2017-10-25 2.9 [facility] 07:43:00 CHEM PANEL 2017-10-25 2.4 [facility] 07:43:00 CHEM PANEL 2017-10-25 8.5 [facility] 07:43:00 CHEM PANEL 2017-10-25 105 [facility] 07:43:00 CHEM PANEL 2017-10-25 25 [facility] 07:43:00 CHEM PANEL 2017-10-25 56 [facility] 07:43:00 CHEM PANEL 2017-10-25 1.25 [facility] 07:43:00 CHEM PANEL 2017-10-25 140 [facility] 07:43:00 CHEM PANEL 2017-10-25 3.6 [facility] 07:43:00 CHEM PANEL 2017-10-25 95 [facility] 07:43:00 CHEM PANEL 2017-10-25 16 [facility] 07:43:00 CHEM PANEL 2017-10-25 13.6 [facility] nn 07:43:00 HEMATOLOGY 2017-10-25 12.0 [facility] 07:43:00 HEMATOLOGY 2017-10-25 52.8 [facility] nn 07:43:00 HEMATOLOGY 2017-10-25 26.6 [facility] nn 07:43:00 HEMATOLOGY 2017-10-25 8.1 [facility] nn 07:43:00 HEMATOLOGY 2017-10-25 0.6 [facility] nn 07:43:00 HEMATOLOGY 2017-10-25 0.5 [facility] nn 07:43:00 HEMATOLOGY 2017-10-25 0.9 [facility] nn 07:43:00 HEMATOLOGY 2017-10-25 3.8 [facility] nn 07:43:00 HEMATOLOGY 2017-10-25 1.9 [facility] nn 07:43:00 HEMATOLOGY 2017-10-25 12.2 [facility] nn 07:43:00 HEMATOLOGY 2017-10-25 37.2 [facility] nn 07:43:00 HEMATOLOGY 2017-10-25 7.3 [facility] nn 07:43:00 HEMATOLOGY 2017-10-25 4.51 [facility] nn 07:43:00 HEMATOLOGY 2017-10-25 8.0 [facility] nn 07:43:00 HEMATOLOGY 2017-10-25 18.0 [facility] nn 07:43:00 HEMATOLOGY 2017-10-25 270 [facility] nn 07:43:00 HEMATOLOGY 2017-10-25 82.5 [facility] nn 07:43:00 HEMATOLOGY 2017-10-25 32.8 [facility] nn 07:43:00 HEMATOLOGY 2017-10-25 07:43:00 Test Item Value Reference Range Interpretation Comme nts MCH (test code = MCH) 27.1 pg 27.0-31.0 [facility]annPARATHYROID [id number] 07:43:001.12[facility] PARATHYROID CMZCYJG5161-56-05 07:43:001.12[facility] HermannCARDIAC ENZYMES 2017-10-24 14:21:00<0.02[facility] HermannCARDIAC [id number] 09:55:00 <0.02[facility] HermannCHEM [id number] 09:55:00 Test Item Value Reference Range Interpretation Comments A/G Ratio (test code = A/G Ratio) 0.8 1 0.7-1.6 [facility]annCHE[facility] [id number] 09:55:004.5[facility] HermannCHEM PANEL 2017-10-24 09:55:0011.3[facility] HermannCHEM EZDQY9956-07-62 09:55:00 Test Item Value Reference Range Interpretation Comments B/C Ratio (test code = B/C Ratio) 12 1 6-25 [facility]annCHEM [id number] 09:55:007.9[facility] HermannCHEM PANEL 2017-10-24 09:55:0018[facility] HermannCHEM KBMHB0141-64-43 09:55:0023[facility] HermannCHEM WMRUH2867-56-03 09:55:003.4[facility] HermannCHEM NDDXT3420-30-28 09:55:000.3[facility] HermannCHEM TPLMG4495-55-88 09:55:0082[facility] HermannCHEM YMKFO1663-14-29 09:55:63481Pzoksive HermannCHEM CHXCM8953-57-31 09:55:001.51 [facility]annCHEM IOKZN9250-92-44 09:55:0026[facility] HermannCHEM PANEL 2017-10-24 09:55:04680Rmirqqgu HermannCHEM IETCC9395-94-57 09:55:003.3[facility] HermannCHEM UKUWY8434-29-70 09:55:86505Xtuxvsck HermannCHEM MSZZJ2565-80-34 09:55:009.5[facility] HermannCHEM KONHM4322-74-17 09:55:0018[facility] HermannCHEM GMLKL1299-85-50 09:55:0044[facility] ReqxqyqAVXIVLKTXI1906-24-43 09:55:0054.0 [facility] BvtujlmTSTHKGRLAY7574-30-28 09:55:0025.4[facility] HermannHEMATOLOGY 2017-10-24 09:55:009.5[facility] VqvyrobQZCSLUIBAN7765-69-10 09:55:0010.4[facility] XnbsdhjFZZSOXFPEF2979-12-26 09:55:000.7[facility] WfwreahPQAIEGMVKO7775-86-77 09:55:004.4[facility] KvolspkXBSJDMCMEO6403-05-32 09:55:000.1[facility] [place] USDOYZCWGZ3081-65-18 09:55:002.1[facility] KayleuzFEHSBFSPCC2532-53-49 09:55:000.8 [facility] PzvsjffJCPXLPTODG6947-78-05 09:55:000.9[facility] HermannHEMATOLOGY 2017-10-24 09:55:00 Test Item Value Reference Range Interpretation Comments PTT (test code = PTT) 34.0 s 22.9-35.8 [facility] TqgdhfsCSQKEKJXAU6446-56-61 09:55:00 Test Item Value Reference Range Interpretation Comments INR (test code = INR) 1.00 1 0.85-1.17 [facility] JrhqhvbTVTXDESRDN6258-43-32 09:55:00 Test Item Value Reference Range Interpretation Comments PT (test code = PT) 13.2 s 12.0-14.7 [facility] BkbiynlQROCSBPIUT7688-44-28 09:55:0082.0[facility] HermannHEMATOLOGY 2017-10-24 09:55:00 Test Item Value Reference Range Interpretation Comments MCH (test code = MCH) 28.0 pg 27.0-31.0 [facility] DviurnzOQPNPKPGVC4807-31-31 09:55:008.2[facility] HermannHEMATOLOGY 2017-10-24 09:55:004.59[facility] PxusqwmOCGRTJJJOA1169-39-33 09:55:0012.9[facility] QgyeadaADSSNAPKZO9517-23-63 09:55:0037.6[facility] JotohvvHJBJGIAIHT0641-71-97 09:55:0034.2[facility] LdurttiSAIGXWPYEN7980-05-25 09:55:0018.5[facility] DXYRNXBXGS3827-36-40 09:55:79087Jnuaphef EycewwwLOJNKGNIQG2839-52-30 09:55:007.7 [facility] LpyjsocUKHMSM6450-40-42 09:55:00 Test Item Value Reference Range Interpretation Comments CHD Risk (test code = CHD Risk) 5.93 1 4.00-7.30 [facility] AzxbofbMMTLEA9462-88-12 09:55:00 Test Item Value Reference Range Interpretation Comments VLDL (test code = VLDL) 45 1 [facility] SddwlurUQTBKA3734-89-96 09:55:0098[facility] ToxlrgkXSXPMN8021-91-87 09:55:37644Tcmyhlxi RawiabuFXAMSB2682-45-11 09:55:24118Jpwmkzrx HermannLIPIDS 2017-10-24 09:55:0029[facility] HermannSPECIAL NMCXXLNYU6902-47-86 09:55:006.2 [facility]annURINE AND XWPOQ2859-14-62 09:30:00None Seen (10/24/17 4:30 AM) [facility] AND TSUSH7402-58-87 09:30:00None Seen (10/24/17 4:30 AM) [facility] LEBBJ6181-23-43 09:30:00None Seen (10/24/17 4:30 AM) [facility] PCOSU3678-35-14 09:30:00Clear (10/24/17 4:30 AM)[facility] AND VNSKI7346-70-23 09:30:00 Test Item Value Reference Range Interpretation Comments UA Spec Grav (test code = UA Spec 1.015 1 Grav) [facility] AND [id number] 09:30:000.2[facility]annUR[facility] AND HCFBH8655-49-09 09:30:00Negative (10/24/17 4:30 AM)[facility] AND STOOL 2017-10-24 09:30:00Negative (10/24/17 4:30 AM)[facility] AND STOOL 2017-10-24 09:30:00Negative (10/24/17 4:30 AM)[facility] AND STOOL 2017-10-24 09:30:00 Test Item Value Reference Range Interpretation Comments UA pH (test code = UA pH) 7.0 1 5.0-8.0 [facility] AND [id number] 09:30:00Negative *NA*(10/24/17 4:30 AM) [facility] QPIBH0190-63-30 09:30:00Yellow *NA*(10/24/17 4:30 AM) [facility] HermannCHEM [id number] 09:42:0074[facility] HermannCHEM PANEL 2014-03-14 09:42:008.7[facility] HermannCHEM FFGHZ8310-33-38 09:42:001.0[facility] HermannCHEM LBTET2544-19-45 09:42:03068Ucjwdyai HermannCHEM AAYUN0811-91-92 09:42:0025[facility] HermannCHEM TPCBK5751-46-58 09:42:0017[facility] HermannCHEM SSLWY5385-07-82 09:42:02404Ovoicnml HermannCHEM ZEGEA6626-43-75 09:42:0099 [facility] HermannCHEM GWIWU3274-03-76 09:42:003.5[facility] HermannCHEM PANEL 2014-03-14 09:42:0011.5[facility] HermannCHEM QSZND6051-10-69 09:42:001.9[facility] HermannCHEM WPSXS9442-84-79 09:42:002.4[facility] SbdbmmiAENFIZSUDT5249-83-46 09:42:007.4[facility] FronmvmZRAZLJHVLK5957-17-65 09:42:49737Yflsrlsk [place] YAAEPMKDAZ7700-39-33 09:42:008.8[facility] TmgejzjASXWKVQNIW1780-25-42 09:42:00 14.3[facility] CxpqxwxBVHOBBRSLJ5347-48-63 09:42:0033.6[facility] HermannHEMATOLOGY 2014-03-14 09:42:00 Test Item Value Reference Range Interpretation Comments MCH (test code = MCH) 28.1 pg 27.0-31.0 [facility] YdjbivoQMVCODCMNB6013-20-56 09:42:004.33[facility] HermannHEMATOLOGY 2014-03-14 09:42:0012.2[facility] ZarwgheGVFRBFXQZC7306-03-82 09:42:0036.2[facility] GjfoddiNWTQWPMBQU0972-64-03 09:42:0083.6[facility] PcklzeyUQQZNPNWLG6347-28-07 09:42:00 Test Item Value Reference Range Interpretation Comments PTT (test code = PTT) 35.5 s 22.9-35.8 [facility] PjcizsaSAWDTXAFIH9859-36-44 09:42:002.03[facility] HermannHEMATOLOGY 2014-03-14 09:42:00 Test Item Value Reference Range Interpretation Comments PT (test code = PT) 23.5 s 12.0-14.7 [facility] HmbmmnwSOVBODIBOF6941-66-74 09:42:0052.1[facility] HermannHEMATOLOGY 2014-03-14 09:42:0029.1[facility] TapefckFBVFRQQEEX2238-77-71 09:42:003.9[facility] ZudodzuNBTLPZNSLX4607-71-37 09:42:009.2[facility] TfhpuffMWRCPDVDRI3868-35-13 09:42:000.6[facility] KdrvxcwIJNTZZZRPJ1482-98-05 09:42:009.0[facility] TSFDIBOTHZ4307-59-00 09:42:000.7[facility] QfdtiiqDNGNHODJXJ2430-03-25 09:42:000.7 Memorial CjmxihlYCJLTTPFLJ4015-20-82 09:42:002.2[facility] HermannHEMATOLOGY 2014-03-13 18:50:002.03[facility] XixtkegFLRKSKZWCQ7259-31-05 18:50:00 Test Item Value Reference Range Interpretation Comments PT (test code = PT) 23.5 s 12.0-14.7 [facility] KoaeofgVTJDAHPBKO5868-68-89 18:50:00 Test Item Value Reference Range Interpretation Comments PTT (test code = PTT) 34.1 s 22.9-35.8 [facility] HermannCHEM [id number] 10:40:003.5[facility] HermannCHEM PANEL 2014-03-13 10:40:001.0[facility] CQWAR4289-94-80 10:40:009.6[facility] SGZPK9253-24-56 10:40:0018[facility]CHE[facility] GGQMR4348-95-58 10:40:000.9[facility]CHE[facility] XNTWO2512-15-22 10:40:20878Urmjowju HermannCHEM VSMKJ2561-71-49 10:40:003.6[facility]CHE[facility] NTXWG8479-53-74 10:40:11530 [facility] QSCFN0562-04-43 10:40:0016[facility]annCHE[facility] PANEL 2014-03-13 10:40:0084[facility] GIBDV3011-84-52 10:40:000.4[facility]CHE[facility] PXUGA1793-82-33 10:40:0012[facility]CHE[facility] HEBCT4669-59-98 10:40:0086[facility]CHE[facility] HNQFW4701-20-53 10:40:008.4[facility]CHE[facility] WROGN1065-68-75 10:40:006.9[facility]CHE[facility] BUQYH4905-09-20 10:40:51291 [facility] UXOFL5922-92-58 10:40:0028[facility]annCHE[facility] PANEL 2014-03-13 10:40:003.4[facility]CHE[facility] DHWBZ6495-33-85 10:40:0021[facility] FczugfaEPTSYVYWZP6148-84-39 10:40:0035.3[facility] PtxawmvLPKDDXUJHG6465-48-53 10:40:009.2[facility] MukkolfTWWNLDVAZO2449-63-87 10:40:00 Test Item Value Reference Range Interpretation Comments MCH (test code = MCH) 27.3 pg 27.0-31.0 [facility] EjlbfxtQEXBNBLUWP9362-81-86 10:40:0082.9[facility]annHEMATOLOGY 2014-03-13 10:40:0014.0[facility] JjouyfzCOLELFUNWX9323-09-39 10:40:0033.0[facility] UkqoxkxCSGCLRSMEF7795-03-38 10:40:29710Wgzenghc NuvibalUYBKLLWGFP3415-80-82 10:40:004.26[facility] MxgqjprWRBXTXXAXH9894-74-89 10:40:006.8[facility] VOVPMAKRTR7544-06-96 10:40:0011.6[facility] GqgojjpAIEEZEBYEZ8112-06-37 10:40:00 0.5[facility] QhiwwvkEMJDYUEMUY5869-46-21 10:40:009.6[facility]annHEMATOLOGY 2014-03-13 10:40:001.8[facility] IyfliviBCBPQOPSBV4005-11-80 10:40:003.6[facility] WajrqarEUBJXRDNXJ8638-37-41 10:40:000.7[facility] VroqpnzKIVALDVIDT4834-76-70 10:40:000.7[facility] YpqbctgRWAIVFIWYZ6199-37-05 10:40:0010.9[facility] [place] WZEWNSBZVG0437-33-01 10:40:0026.0[facility] NvuyqmmMZSVIUVBQI6287-47-76 10:40:00 53.0[facility] FgfrlpiSVYVWJNSCX7370-75-13 10:40:001.8[facility] HermannIMMUNOLOGY 2014-03-13 10:40:0011.7[facility] ZnlcqahTKKSEGVDUX6314-07-56 10:40:002.1[facility] SqdokflRFDQUN7849-76-85 10:40:0027[facility] VkdwpuiVKNLLK9534-97-41 10:40:98746 [facility] ZdgxftaGBQSAW0570-26-19 10:40:003.90[facility] LenreutGGTOFJ1543-80-88 10:40:0063[facility] QykauzbFCRCSS1944-71-71 10:40:98498Rhsdvdow HermannLIPIDS 2014-03-13 10:40:0031[facility]annSPECIAL ZTXNGFMQL3404-61-89 10:40:006.3 [facility] RPKGC0008-55-26 10:40:00Negative (03/13/14 4:40 AM) [facility] IROSH3490-21-00 10:40:006.5[facility] UCBZC3101-54-70 10:40:00Negative (03/13/14 4:40 AM)[facility] ZLYWP9201-87-71 10:40:00Negative (03/13/14 4:40 AM)[facility] KSMIN3724-13-07 10:40:00Negative *NA*(03/13/14 4:40 AM)[facility] SBGNS9053-11-85 10:40:00Clear (03/13/14 4:40 AM)[facility] STOOL 2014-03-13 10:40:001.020[facility] INRTW7586-32-17 10:40:00Yellow *NA*(03/13/14 4:40 AM)[facility] CQZTF8407-33-44 05:25:00Negative (03/12/14 11:25 PM)[facility] DQPIJ4844-57-25 05:25:00Negative (03/12/14 11:25 PM)[facility] YTRPV5413-44-79 05:25:00Negative (03/12/14 11:25 PM)[facility] OEFMW3612-21-25 05:25:000.2[facility] FUCUR7411-90-50 05:25:00Yellow *NA*(03/12/14 11:25 PM)[facility] EVCOF3224-01-07 05:25:00Negative *NA*(03/12/14 11:25 PM)[facility] EYBJM4548-20-58 05:25:00Clear (03/12/14 11:25 PM)[facility] BNTGK3444-24-55 05:25:00 Test Item Value Reference Range Interpretation Comments UA pH (test code = UA pH) 7.0 1 5.0-8.0 [facility] ZMIFP4216-00-51 05:25:00 Test Item Value Reference Range Interpretation Comments UA Spec Grav (test code = UA Spec 1.010 1 Grav) [facility] UNJJS2131-39-59 05:25:00None Seen (03/12/14 11:25 PM) [facility] MKQMQ2549-81-43 05:25:00None Seen (03/12/14 11:25 PM) [facility] TMMVD8102-46-40 05:25:00None Seen (03/12/14 11:25 PM) [facility]annCHEM OYFFZ5392-28-89 23:21:0074[facility]annCHEM PANEL 2014-03-12 23:21:003.7[facility]annCHEM VLBKC7090-20-34 23:21:76039Syvtjkar HermannCHEM CHXZM2102-23-00 23:21:0024[facility]annCHEM VEZJW2622-71-88 23:21:008.6[facility]annCHEM OLQMU9961-18-68 23:21:98098Qkkherld HermannCHEM XCRHT4986-42-50 23:21:001.0[facility]annCHEM HKTGJ0258-17-48 23:21:0095 [facility]annCHEM UKDLV3439-08-82 23:21:0019[facility]annCHEM PANEL 2014-03-12 23:21:0013.7[facility] TkgdvpyNGGXYKAXZT1761-52-41 23:21:000.1[facility] GradhjyESQSYVDJRN1915-62-98 23:21:000.8[facility] VtrhulsUBDMHBDDBU6701-31-96 23:21:007.5[facility] ZkezwtaWVXFDWZHMI0190-15-58 23:21:0027.4[facility] IFMQZQBCRD0117-43-63 23:21:003.9[facility] IrswkofMTHMHBJPXV5961-39-48 23:21:000.8 [facility] HqumpxdYFVTTQYGAT3372-88-11 23:21:0010.0[facility] HermannHEMATOLOGY 2014-03-12 23:21:002.1[facility] PcfobniPANIKYLSHF4895-65-78 23:21:0054.3[facility] BtopjipBKVSUDZZRB5327-56-25 23:21:000.6[facility] QewihxzHRJSBPVODU7693-33-64 23:21:00 Test Item Value Reference Range Interpretation Comments PT (test code = PT) 22.9 s 12.0-14.7 [facility] ZefqqxeUXJGPSJBUA6037-69-27 23:21:001.97[facility]annHEMATOLOGY 2014-03-12 23:21:00 Test Item Value Reference Range Interpretation Comments PTT (test code = PTT) 36.8 s 22.9-35.8 [facility] QzpmizpTITKIFZRUJ1467-78-91 23:21:09381Ibggefsu HermannHEMATOLOGY 2014-03-12 23:21:0013.7[facility] BkizcwiGSKEFZGAWG2200-75-81 23:21:009.2[facility] GaafdcxZWETCNJDLU3023-90-40 23:21:0032.9[facility] WuhwygyVQZFMXJDQX6412-51-51 23:21:00 Test Item Value Reference Range Interpretation Comments MCH (test code = MCH) 27.6 pg 27.0-31.0 [facility] MnlhwugNUVOMFTJQX4684-50-94 23:21:0084.0[facility]annHEMATOLOGY 2014-03-12 23:21:0038.1[facility] QobztokSQMWLDBZIS9388-57-10 23:21:0012.5[facility] BkvydmtHGPZFLVCRZ0829-79-86 23:21:004.54[facility] SkxszquOSVHCUZVLX2299-01-03 23:21:007.5[facility] BozzzwkFKJVLQOYUU8219-94-75 09:30:22767Xlbfpjir [place] JHDFTLFEHX9633-71-71 09:30:489.5[facility] TseoxqeEJAGDWBMCX6728-78-57 09:30:48 34.2[facility] XestuicZOOTQAEKMI3473-26-31 09:30:4814.2[facility]annHEMATOLOGY 2013-10-20 09:30:4888.2[facility] OtesujrRYYJBACDPG6823-81-60 09:30:4833.7[facility] UxjbxhrDTEYXJRSCD5028-41-31 09:30:4811.5[facility] LmvejwcXOHZJSGKTQ9067-85-95 09:30:483.82[facility] LcspuxwIAPGLUUGUX3801-39-35 09:30:48 Test Item Value Reference Range Interpretation Comments MCH (test code = MCH) 30.2 pg 27.0-31.0 [facility] AgpejnkFXHAKPFLNO2534-26-20 09:30:488.3[facility]annHEMATOLOGY 2013-10-20 09:30:4811.5[facility] ThqxchoCDGTHINGGH3813-55-73 09:30:488.7[facility] MegplwfGHDSXOIAAO2607-79-00 09:30:4815.2[facility] LhnowcqDBSDEYYBFA5543-46-42 09:30:4863.9[facility] TnhyzayLMGKECWMMR1762-52-33 09:30:481.3[facility] IBKFEXOXHG9702-15-70 09:30:480.9[facility] WiniravXQCHZJKMQN8337-06-38 09:30:480.7 [facility] GrhsmxkHYXTIUINCW0956-74-15 09:30:480.7[facility]annHEMATOLOGY 2013-10-20 09:30:480.1[facility] NylwpftHXKKHKNAZB1594-54-29 09:30:485.3[facility] AhoctpzKFRKXOARAFFN3275-98-78 10:30:0027[facility] CklbxhvQELYOHYRGMGR7869-22-66 10:30:008.9[facility] DfglvtsLWRKJKHVPPXN5099-88-98 10:30:0011.6[facility] UPJGAIRYEIJS1198-86-88 10:30:85148Xzldnatd KjxrzrgTOUWXCMKLBCV9651-62-30 10:30:0075[facility] IqxhnpgSENQZTDGDXVT7504-47-86 10:30:64212Atmsuaam [place] TFHAYAEOMIPZ0354-17-57 10:30:16257Pyurkmbn HbxbvjnPLANVJENPYWV2640-38-91 10:30:001.0[facility] WbrriodTQIPZFFGEVBP7864-97-72 10:30:003.6[facility] KETBMUMXMUER7652-52-82 10:30:0017[facility] HermannCHEM TIIFI0705-08-36 10:30:0067 [facility]annCHEM MZGLK4058-99-64 10:30:001.1[facility] HermannCHEM PANEL 2013-10-15 10:30:92064Ogxzdtqr HermannCHEM NYOTI2011-82-10 10:30:003.8[facility] HermannCHEM NCSYI3840-89-16 10:30:0019[facility] HermannCHEM TZIXX7824-55-12 10:30:62251Npomyzss HermannCHEM NFEHE9752-60-00 10:30:17238Vsheyjhl HermannCHEM ROOPL2450-63-12 10:30:0029[facility] HermannCHEM GDMNM3823-74-89 10:30:008.7 [facility]annCHEM RJSGI1995-99-93 10:30:0011.8[facility]annHEMATOLOGY 2013-10-15 10:30:00 Test Item Value Reference Range Interpretation Comments PT (test code = PT) 18.0 s 12.0-14.7 [facility] CmzqyamGUMBAJDKIW2323-11-82 10:30:00 Test Item Value Reference Range Interpretation Comments PTT (test code = PTT) 36.3 s 22.9-35.8 [facility] RqaccukFVKJRMEMMT8006-21-61 10:30:001.46[facility]annHEMATOLOGY 2013-10-15 10:30:004.36[facility] LylemvzQFGDXZUIFA4506-82-69 10:30:0013.3[facility] PojqivmFTZPGKICNH0898-40-90 10:30:009.8[facility] UillnqdJLMOQUAINS1100-69-18 10:30:00 Test Item Value Reference Range Interpretation Comments MCH (test code = MCH) 30.5 pg 27.0-31.0 [facility] YqxrdtpMICMIVUBST7335-90-36 10:30:0088.8[facility]annHEMATOLOGY 2013-10-15 10:30:0038.7[facility] OantlzsXTSOJHGFEC7382-01-33 10:30:18184Vhfoqriv VvcwrwxRMCUSQBNXS2308-41-12 10:30:0014.6[facility] DcrwrnwUNAOVYHRBF6575-33-16 10:30:0034.3[facility] PjaltvoLHEUCGIPNM4661-30-30 10:30:009.4[facility] [place] WDAKSSIEYY4139-03-38 10:30:000.4[facility] DcbmbzaCKLGPJWASP3029-09-71 10:30:001.0 [facility] SzkzwvdUISHSGXOLC3462-29-47 10:30:006.6[facility]annHEMATOLOGY 2013-10-15 10:30:000.6[facility] BepgfkkJRPAPBVOOF8264-57-49 10:30:001.5[facility] TmomhbkJETCWEDCKD1006-31-94 10:30:0015.2[facility] XmhunbuGIXWRKEXLU7881-63-16 10:30:0067.2[facility] LrvhiqlIOVMJBRJOT9990-68-29 10:30:0010.6[facility] [place] JNVODPHYCS9236-50-47 10:30:006.6[facility] YULKD1531-44-42 15:44:40>182[facility] BGFVI3922-93-25 15:44:40Negative (10/14/13 10:44 AM)[facility] WWCCQ0151-94-79 15:44:40Trace *ABN*(10/14/13 10:44 AM)[facility] NJKAJ9726-02-02 15:44:40 Negative *NA*(10/14/13 10:44 AM)[facility] DGKGV8903-74-77 15:44:40Negative *NA*(10/14/13 10:44 AM)[facility] OCYVG5959-95-21 15:44:40Small *ABN*(10/14/13 10:44 AM)[facility] ZEBSZ7748-23-24 15:44:401.0[facility] HROHW7186-71-33 15:44:40Negative (10/14/13 10:44 AM)[facility] PEZVO3199-09-63 15:44:40Small *ABN*(10/14/13 10:44 AM)[facility] CLVPC5359-69-32 15:44:40Yellow *NA*(10/14/13 10:44 AM)[facility] RYDQJ0912-28-53 15:44:40Slight Cloudy (10/14/13 10:44 AM)[facility] PRWNO1656-83-57 15:44:40 Test Item Value Reference Range Interpretation Comments UA Spec Grav (test code = UA Spec 1.020 1 Grav) [facility] STKKX0430-57-14 15:44:40 Test Item Value Reference Range Interpretation Comments UA pH (test code = UA pH) 7.0 1 5.0-8.0 [facility] UuqsecpCQIGXLXGMEDZ4288-89-81 11:30:0013.9[facility] HermannELECTROLYTES 2013-10-14 11:30:0075[facility] XjnfbpjRJWSHQTYITRZ4562-92-29 11:30:001.0[facility] CoosijfFGCYXMAKNLYO8778-27-11 11:30:0022[facility] HgxmbhgVWOBLTSWWNKM2143-35-01 11:30:28411Hcduglbx KsmznmmTNJPFQADNSJS7014-29-90 11:30:009.1[facility] LHFMMLCYXGNR1623-06-22 11:30:74748Gxbaljns GhztmqiVWXGTJCIFUJV8007-96-23 11:30:81653Dibsrofi LuzmqijYBJOZHKTRLLF8688-50-14 11:30:0024[facility] [place] ADAEGDRWVULP7644-74-46 11:30:003.9[facility] NpswpsnLNTKLDSNAX7288-80-47 11:30:00 10.8[facility] DzmrqhbMDBINGKVRN7198-39-77 11:30:004.50[facility]annHEMATOLOGY 2013-10-14 11:30:0013.6[facility] ZahrpkiEBPKFJRRWU2135-53-34 11:30:0039.7[facility] YskiirsSUBEYJZTPT6882-46-45 11:30:0088.4[facility] PzqxnnySCJQXUKHXK1428-13-40 11:30:00 Test Item Value Reference Range Interpretation Comments MCH (test code = MCH) 30.2 pg 27.0-31.0 [facility] QrcrbxgGPUSCHKAVW8875-11-08 11:30:0034.2[facility]annHEMATOLOGY 2013-10-14 11:30:0014.8[facility] QsvkidwXTGWDROVWR5557-99-10 11:30:91336Ffrmbyjt FzbsskfZVBONQKORR7219-26-32 11:30:009.3[facility] KljmgoiBZRRJEPPQQ4141-52-63 11:30:000.6[facility] WcuchakFUOVYAWZSN0394-95-25 11:30:001.0[facility] [place] VADCKBHVYF6159-41-75 11:30:005.2[facility] XeujkngMWNCJXWWAZ8361-21-38 11:30:001.3 [facility] DskauvbKBLYRQBSGT8883-12-10 11:30:007.9[facility] HermannHEMATOLOGY 2013-10-14 11:30:000.4[facility] VzkjjwcVDAXDZCHXA5807-41-36 11:30:009.5[facility] TcnefqdGNECLXPXEF6058-96-77 11:30:0073.0[facility] DwncbdaCJIIIPTBUI3507-38-56 11:30:0011.9[facility] HermannCHEM SSNMV6779-39-80 09:09:002.8[facility] HermannCHEM MJCOH2504-78-32 09:09:001.7[facility] DgeeornTPMDDSXUUTBA1099-90-87 09:09:0017.5 [facility] HvpcnsfOYRXCYJNHGSJ2674-72-02 09:09:0060[facility] HermannELECTROLYTES 2013-10-13 09:09:009.2[facility] KinkzeeFMBOKDQYELBX8016-89-10 09:09:0021[facility] EwbhvcbPJQCMNIEHZYS3900-72-54 09:09:001.2[facility] PgtomfnQTIADFLEHMIZ9029-96-80 09:09:0025[facility] OzqactmSYVJVCCVZTZY4038-18-29 09:09:0097[facility] [place] HIEBDMQPRUCU9795-67-42 09:09:21987Eyackhww TueqmwbOWCPZJMRSRRP2839-90-71 09:09:003.5[facility] CpxpjrxYLNKVFRCTWNF9299-96-09 09:09:47341Kmfuwgid [place] YCCWHNRDOQ6065-85-12 09:09:00 Test Item Value Reference Range Interpretation Comments PT (test code = PT) 18.6 s 12.0-14.7 [facility] JetplusJLZFIIYEVH4187-80-74 09:09:001.52[facility]annHEMATOLOGY 2013-10-13 09:09:00 Test Item Value Reference Range Interpretation Comments PTT (test code = PTT) 35.1 s 22.9-35.8 [facility] HkehyvlMRMCGBCTVT6599-54-30 09:09:008.9[facility]annHEMATOLOGY 2013-10-13 09:09:01109Jlatvmfq BemixcxMYCCHPPLGV2071-35-12 09:09:0014.6[facility] GpnwnrhALNZTAICVD7068-79-77 09:09:0034.5[facility] NktazqyGXEACZCPTK0477-44-14 09:09:00 Test Item Value Reference Range Interpretation Comments MCH (test code = MCH) 30.5 pg 27.0-31.0 [facility] OvokuqjKXGSKXKEHR5047-89-57 09:09:0088.5[facility]annHEMATOLOGY 2013-10-13 09:09:0014.1[facility] GptizuuVNTWQFMKYE8570-34-71 09:09:0040.8[facility] ImgobsyVMVSLLNOBI1719-09-90 09:09:004.61[facility] MdfmuutAQAYHGODHU6135-87-63 09:09:0010.6[facility] DwfyxvgEDINIEJDPJ3792-22-78 09:09:0067.5[facility] DFGFCNLKAR8152-42-97 09:09:008.5[facility] KfwkfniMZVNBBJBGZ9603-51-72 09:09:000.4 [facility] LdgbakoBVORPXNHLL9472-57-31 09:09:007.1[facility]annHEMATOLOGY 2013-10-13 09:09:001.0[facility] ZebyqzkRPXYIGQRJR4974-42-08 09:09:000.9[facility] BcpzvosXDUVQZBEHL7005-96-57 09:09:001.5[facility] OivxmueFTUSNIHLAG1717-00-42 09:09:0014.0[facility] DnzbjczYZRSMKVBMA1424-33-05 09:09:009.6[facility] QVOOTWNEBN8073-45-10 08:39:00 Test Item Value Reference Range Interpretation Comments PT (test code = PT) 17.1 s 12.0-14.7 [facility] RmeulypYBOOZAQOHS4024-99-87 08:39:001.41[facility]annHEMATOLOGY 2013-10-12 08:39:00 Test Item Value Reference Range Interpretation Comments PTT (test code = PTT) 69.2 s 22.9-35.8 [facility] HermannCHEM DCDAH8549-65-91 09:23:0067[facility] HermannCHEM PANEL 2013-10-11 09:23:008.9[facility] HermannCHEM CUZIF6278-21-59 09:23:0027[facility] HermannCHEM YDMPH0879-20-41 09:23:86300Ntihcwzl HermannCHEM UTYXL5647-06-75 09:23:003.4[facility] HermannCHEM LDTCP2100-91-11 09:23:79500Mobghcvz HermannCHEM KCDDK7612-87-57 09:23:001.1[facility] HermannCHEM JSFEB3504-27-64 09:23:0016 [facility]annCHEM ZTHQO4662-66-08 09:23:0096[facility]annCHEM PANEL 2013-10-11 09:23:0011.4[facility] HermannCHEM QYFMQ0169-06-49 09:23:002.6[facility] HermannCHEM GOESJ6606-84-72 09:23:001.8[facility] AgtpoxlIJLVNUJJUA0285-16-80 09:23:004.64[facility] RgyahcuDYGKPXEAWR4806-93-05 09:23:009.0[facility] DOGFGQALYS5643-05-78 09:23:62893Rtuglejw OgnroqhNZOXNTSHIX9547-61-07 09:23:00 14.7[facility] PcrrshcXUCPOMIACV6619-41-97 09:23:009.1[facility]annHEMATOLOGY 2013-10-11 09:23:0014.0[facility] DvvenpzGQTXOBCXKP7444-49-25 09:23:0087.6[facility] QstkvixLZSXZDZPVD0319-03-79 09:23:0040.7[facility] PmkdimoFTTKUVGKBA6647-63-70 09:23:0034.3[facility] CchnuiiACCCVIBCKM7941-84-33 09:23:00 Test Item Value Reference Range Interpretation Comments MCH (test code = MCH) 30.1 pg 27.0-31.0 [facility] VnzlmulKHKQOKSJVB8736-58-49 09:23:001.0[facility]annHEMATOLOGY 2013-10-11 09:23:000.1[facility] QsywuseNZREYQWNMG7219-93-24 09:23:000.emorial SleksroUIQCPUGYSX8691-24-66 09:23:002.0[facility] ZusrmrvSNXDACBNJO2486-93-82 09:23:0010.emorial KrtywpbLEXPTWPRYL7921-59-00 09:23:005.4[facility] VSIOEFCYIB8187-83-32 09:23:000.emorial IkililqINEILLTNEU2627-48-88 09:23:00 21.9[facility] DtoracqXCUCCOINUN4096-21-10 09:23:0059.8[facility]annHEMATOLOGY 2013-10-11 09:23:007.1[facility] UkvbyneXYMMPMWEJD2415-68-75 09:23:00 Test Item Value Reference Range Interpretation Comments PT (test code = PT) 16.2 s 12.0-14.7 [facility] JwhcmsnWEMYKWPLVX0771-20-36 09:23:001.32[facility]annHEMATOLOGY 2013-10-11 04:19:23 Test Item Value Reference Range Interpretation Comments PTT (test code = PTT) 64.9 s 22.9-35.8 [facility] HermannCHEM RZLAN1386-18-21 06:18:502.5[facility] HermannCHEM PANEL 2013-10-10 06:18:501.7[facility] PihsgwvSHIUTCJKQA9898-34-51 06:18:500.1[facility] HermannCARDIAC CGRULWI2994-30-91 12:29:47<0.02[facility] HermannDRUG SCREEN 2013-10-09 00:48:00Negative *NA*(10/08/13 7:48 PM)[facility]annDRUG SCREEN 2013-10-09 00:48:00Negative *NA*(10/08/13 7:48 PM)[facility]annDRUG SCREEN 2013-10-09 00:48:00Negative *NA*(10/08/13 7:48 PM)[facility]annDRUG SCREEN 2013-10-09 00:48:00Negative *NA*(10/08/13 7:48 PM)[facility]annDRUG SCREEN 2013-10-09 00:48:00Negative *NA*(10/08/13 7:48 PM)[facility]annDRUG SCREEN 2013-10-09 00:48:00Negative *NA*(10/08/13 7:48 PM)[facility]annDRUG SCREEN 2013-10-09 00:48:00Negative *NA*(10/08/13 7:48 PM)[facility]annDRUG SCREEN 2013-10-09 00:48:00See Note 7*NA*(10/08/13 7:48 PM)[facility] EJVFU7144-00-84 00:48:000.2[facility] NSKTV3720-07-34 00:48:00 Negative (10/08/13 7:48 PM)[facility] WCRWN1287-79-49 00:48:00 Negative (10/08/13 7:48 PM)[facility] ULRNM9248-09-12 00:48:00 Negative (10/08/13 7:48 PM)[facility] KZMRR0323-76-59 00:48:00None Seen (10/08/13 7:48 PM)[facility] ZOMEX7566-82-20 00:48:00Negative (10/08/13 7:48 PM)[facility] SXVNZ0555-92-91 00:48:00 Test Item Value Reference Range Interpretation Comments UA pH (test code = UA pH) 6.0 1 5.0-8.0 [facility] BAFMD7898-84-05 00:48:00<=1.005 *NA*(10/08/13 7:48 PM)[facility] JKNYI2372-19-36 00:48:00Negative *NA*(10/08/13 7:48 PM)[facility] NASQC3835-76-71 00:48:00Negative (10/08/13 7:48 PM) [facility] EIBPT4154-67-08 00:48:00Negative *NA*(10/08/13 7:48 PM) [facility] XNCUA1627-60-00 00:48:00Yellow *NA*(10/08/13 7:48 PM) [facility] OYVXE3747-66-22 00:48:00Clear (10/08/13 7:48 PM) [facility]annCARDIAC ZOUOHML9443-33-81 17:13:00<0.02[facility] [place] CARDIAC ZTHTQEY5134-32-53 17:13:0066[facility] HermannCHEM KIPSZ3174-67-66 17:13:0077[facility] HermannCHEM UBVTL9728-41-17 17:13:000.6[facility] HermannCHEM TAUHV7127-93-16 17:13:007.3[facility] HermannCHEM CQFRV8093-46-14 17:13:003.3 [facility] HermannCHEM CTMKF7709-19-21 17:13:0019[facility] HermannCHEM PANEL 2013-10-08 17:13:0010[facility] HermannCHEM FXSGX8984-31-20 17:13:004.0[facility] HermannCHEM BKNBA6755-98-79 17:13:000.8[facility] HermannCHEM PKVKB1614-01-76 17:13:0018[facility] QrvfhrdCDZDUS2578-71-15 17:13:0027[facility] HermannLIPIDS 2013-10-08 17:13:47061Ybueaage BnycdmhPVQKLL7931-12-65 17:13:56133Gtinaeig HzogvzxDYNFIQ6320-81-96 17:13:0031[facility] TvlkjxbIPJOFH2958-71-94 17:13:73569 [facility] YhsvvxqRTDQPK6731-58-18 17:13:005.97[facility] HermannSPECIAL CHEMISTRY 2013-10-08 17:13:006.2[facility]
--- NOTE | 2020-08-19 03:57 | EDPHYS ---
Physician Documentation [facility] Name: Wicho Dudley Age: 79 yrs Sex: Male : 1940 Arrival Date: 08/19/2020 Time: 01:12 Bed 20 Private MD: ED Physician Reji Navarro HPI: 08/19 01:18 This 79 yrs old Male presents to ER via EMS with complaints of Bloody Stools. rn 01:18 The patient presents to the emergency department with rectal bleeding, a moderate rn amount, bright red blood with bowel movement, dark red blood with bowel movement 4 times since symptom onset. Onset: The symptoms/episode began/occurred this morning. Abdominal pain: described as achy, located in the suprapubic area. Modifying factors: The symptoms are alleviated by nothing, the symptoms are aggravated by nothing. Associated signs and symptoms: Pertinent negatives: constipation, diarrhea, fever, shortness of breath. Severity of symptoms: At their worst the symptoms were moderate in the emergency department the symptoms have improved. The patient has not experienced similar symptoms in the past. The patient has not recently seen a physician. Reports 4 bloody bowel movement, started dark, progressively got to brighter red blood, takes fondaparinux for stroke prevention. No trauma. No fever. + lower abd pain. . Historical: - Allergies: 01:14 No Known Allergies; bb - Home Meds: 01:14 fondaparinux 7.5 mg/0.6 mL subcutaneous syrg 0.6 mL once daily [Active]; chlorthalidone bb 25 mg Oral tab 1 tab once daily [Active]; Spironolactone Oral [Active]; benzonatate oral [Active]; topiramate oral [Active]; Tylox Oral [Active]; - PMHx: 01:14 BPH; CVA; Depression; Hypertension; diverticulosis; bb - Immunization history:: Adult Immunizations up to date, Client reports receiving the 2nd dose of the Covid vaccine. - Social history:: Smoking status: unknown. - Family history:: not pertinent. - Hospitalizations: : No recent hospitalization is reported. ROS: 01:18 Constitutional: Negative for fever, chills, and weight loss, Eyes: Negative for injury, rn pain, redness, and discharge, Neck: Negative for injury, pain, and swelling, Cardiovascular: Negative for chest pain, palpitations, and edema, Respiratory: Negative for shortness of breath, cough, wheezing, and pleuritic chest pain, Abdomen/GI: + lower abd tenderness and rectal bleeding Back: Negative for injury and pain, MS/Extremity: Negative for injury and deformity, Skin: Negative for injury, rash, and discoloration, Neuro: Negative for headache, weakness, numbness, tingling, and seizure. Exam: 01:18 Constitutional: This is a well developed, well nourished patient who is awake, alert, rn and in no acute distress. Head/Face: Normocephalic, atraumatic. Eyes: Periorbital areas with no swelling, redness, or edema. Cardiovascular: Regular rate and rhythm. No pulse deficits. Respiratory: No increased work of breathing, no retractions or nasal flaring. Abdomen/GI: soft, non-tender, small umbilical hernia without skin changes or focal tenderness Skin: Warm, dry MS/ Extremity: Pulses equal, no cyanosis. Neuro: Awake and alert, GCS 15 Vital Signs: 01:12 BP 128 / 89; Pulse 80; Resp 18 S; Temp 98.6(O); Pulse Ox 100% on R/A; Weight 90.72 kg bb (R); Pain 3/10; 03:41 BP 113 / 85; Pulse 77; Resp 16; Pulse Ox 98% on R/A; ak2 MDM: 01:12 Patient medically screened. rn 03:52 Differential diagnosis: diverticulosis, angiodysplasia, polyp. Data reviewed: vital rn signs, nurses notes, lab test result(s), radiologic studies, CT scan, and as a result, I will admit patient. Counseling: I had a detailed discussion with the patient and/or guardian regarding: the historical points, exam findings, and any diagnostic results supporting the discharge/admit diagnosis, lab results, radiology results, the need for further work-up and treatment in the hospital, the need to transfer to another facility. Response to treatment: the patient's symptoms have markedly improved after treatment, has gone to bathroom, passed gas, and only very small amount of blood. Refusal of service: The patient/guardian displays adequate decision making capability and despite a detailed discussion of alternatives, benefits, risks, and consequences refuses: Admission to the hospital for further work-up and treatment. ED course: Pt states feels much better, when I recommended admission/transfer given he is on fondaparinux, patient and son decline, state they are going home, has stopped bleeding before when this happened in past, and plan to hold his blood thinner as he did before. Denies sob or dizziness, ambulatory to bathroom without assistance. Will respect his wishes to go home, strict return precautions given and understands risks of not being admitted. . 08/19 01:13 Order name: Basic Metabolic Panel; Complete Time: 02:06 rn 08/19 01:13 Order name: CBC with Diff; Complete Time: 02:06 rn 08/19 01:13 Order name: Hepatic Function; Complete Time: 02:06 rn 08/19 01:13 Order name: Lipase; Complete Time: 02: rn 08/19 01:13 Order name: Type And Screen; Complete Time: 03:22 rn 08/19 01:13 Order name: Lactate; Complete Time: 02:06 rn 08/19 01:13 Order name: IV Saline Lock rn 08/19 01:13 Order name: Labs collected and sent rn 08/19 01:13 Order name: CT Abd/Pelvis - IV Contrast Only rn 08/19 01:13 Order name: EKG; Complete Time: 01:13 rn 08/19 01:13 Order name: EKG - Nurse/Tech rn 08/19 01:30 Order name: PT-INR ak2 08/19 01:30 Order name: Protime (+INR); Complete Time: 02:06 EDMS Administered Medications: No medications were administered Disposition Summary: 08/19/20 03:56 Discharge Ordered Location: Home rn Problem: new rn Symptoms: have improved rn Condition: Stable rn Diagnosis - Diverticulosis of intestine, part unspecified, without perforation or abscess with rn bleeding Followup: rn - With: Private Physician - When: 1 - 2 days - Reason: Recheck today's complaints, Re-evaluation by your physician Discharge Instructions: - Discharge Summary Sheet rn - Diverticulosis rn - Gastrointestinal Bleeding rn Forms: - Medication Reconciliation Form rn - Thank You Letter rn - Antibiotic transactional attorney - Prescription Opioid Use rn Signatures: Dispatcher [employer] Tanja Brandon RN RN Reji Riggins MD MD rn
--- NOTE | 2020-08-19 03:57 | ER ---
Nurse's Notes [facility] Name: Wicho Dudley Age: 79 yrs Sex: Male : 1940 Arrival Date: 08/19/2020 Time: 01:12 Bed 20 Private MD: Diagnosis: Diverticulosis of intestine, part unspecified, without perforation or abscess with bleeding Presentation: 08/19 01:12 Chief complaint: EMS states: they were toned out for report of pt with rectal bleeding. bb Coronavirus screen: At this time, the client does not indicate any symptoms associated with coronavirus-19. Ebola Screen: No symptoms or risks identified at this time. Initial Sepsis Screen: Does the patient meet any 2 criteria? No. Patient's initial sepsis screen is negative. Does the patient have a suspected source of infection? No. Patient's initial sepsis screen is negative. Risk Assessment: Do you want to hurt yourself or someone else? Patient reports no desire to harm self or others. Onset of symptoms was August 19, 2020. 01:12 Method Of Arrival: EMS: [facility] bb 01:12 Acuity: BRENDAN 3 bb 01:16 Care prior to arrival: Medication(s) given: Normal saline infusion, 500 mL, zofran 4 bb mg, IV initiated. 20 GA, in the left hand. Triage Assessment: 01:38 General: Appears in no apparent distress. Behavior is calm, cooperative. Pain: Denies ak2 pain. Historical: - Allergies: 01:14 No Known Allergies; bb - Home Meds: 01:14 fondaparinux 7.5 mg/0.6 mL subcutaneous syrg 0.6 mL once daily [Active]; chlorthalidone bb 25 mg Oral tab 1 tab once daily [Active]; Spironolactone Oral [Active]; benzonatate oral [Active]; topiramate oral [Active]; Tylox Oral [Active]; - PMHx: 01:14 BPH; CVA; Depression; Hypertension; diverticulosis; bb - Immunization history:: Adult Immunizations up to date, Client reports receiving the 2nd dose of the Covid vaccine. - Social history:: Smoking status: unknown. - Family history:: not pertinent. - Hospitalizations: : No recent hospitalization is reported. Screenin:39 Abuse screen: Denies threats or abuse. Denies injuries from another. Nutritional ak2 screening: No deficits noted. Tuberculosis screening: No symptoms or risk factors identified. Fall Risk None identified. Assessment: 01:39 General: Appears in no apparent distress. Neuro: No deficits noted. Cardiovascular: No ak2 deficits noted. Respiratory: No deficits noted. GI: Patient currently denies rectal bleeding. 03:41 Reassessment: Patient and/or family updated on plan of care and expected duration. Pain ak2 level reassessed. Vital Signs: 01:12 BP 128 / 89; Pulse 80; Resp 18 S; Temp 98.6(O); Pulse Ox 100% on R/A; Weight 90.72 kg bb (R); Pain 3/10; 03:41 BP 113 / 85; Pulse 77; Resp 16; Pulse Ox 98% on R/A; ak2 ED Course: 01:12 Patient arrived in ED. ag3 01:12 Reji Navarro MD is Attending Physician. rn 01:13 Triage completed. bb 01:14 Arm band placed on Patient placed in an exam room, on a stretcher, on pulse oximetry. bb 01:38 Kameron Li is Primary Nurse. ak2 01:39 Patient has correct armband on for positive identification. ak2 01:39 No provider procedures requiring assistance completed. Inserted saline lock: 18 gauge ak2 in right forearm, using aseptic technique. 02:45 CT Abd/Pelvis - IV Contrast Only In Process Unspecified. EDMS 04:30 IV discontinued. ak2 Administered Medications: No medications were administered Outcome: 03:56 Discharge ordered by . rn 04:30 Discharged to home ambulatory. ak2 04:30 Condition: good 04:30 Discharge instructions given to patient. 04:30 Patient left the ED. ak2 Signatures: Dispatcher [employer] EDMS Tanja Schneider RN RN bb Nieto, Roman, MD MD rn Gomez, Alice 3 Kameron Li ak2
[2020-08-19 04:38] VITALS: TEMP 98.6
[2020-08-19 04:40] VITALS: BP 113/85; O2SAT 98
--- NOTE | 2020-08-19 10:26 | EKG ---
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
--- NOTE | 2020-08-20 11:10 | RAD REPORT ---
EXAM DESCRIPTION: CT ABDOMEN PELVIS WITH IV CONTRAST CLINICAL HISTORY: Abd pain, bloody stools, anticoagulated TECHNIQUE: Contiguous axial images obtained through the abdomen and pelvis following the uneventful administration of IV contrast. Coronal and sagittal reformatted images were provided. This exam was performed according to our departmental dose-optimization program, which includes autom ated exposure control, adjustment of the mA and/or kV according to patient size and/or use of iterati ve reconstruction technique. COMPARISON: 06/03/2017 FINDINGS: Lung bases: No focal consolidation. Coronary artery calcification. Prominent paraspinal va rices again demonstrated. Liver: Unremarkable Gallbladder and biliary system: Prior cholecystectomy. Pancreas: Mild fatty replacement of the pancreatic parenchyma. Spleen: Unremarkable Adrenals: Unremarkable Kidneys: Normal renal cortical enhancement. The left kidney is atrophic. Lobulated contour bilaterall y with areas of cortical thinning/scar. No calculi. No hydronephrosis. Bowel: Moderate stool. Colonic diverticula without adjacent inflammatory change. No obstruction. No a ppreciable mucosal thickening. Appendix: The appendix is not definitively visualized. No findings to suggest acute appendicitis. Urinary bladder: Unremarkable Reproductive: Unremarkable as visualized Lymph nodes: No pathologically enlarged lymph nodes. Peritoneum: No focal fluid collection. No free air. Vessels: Moderate atherosclerotic disease. Fusiform infrarenal abdominal aortic aneurysm measuring 4. 4 cm and maximum diameter (previously 3.3 cm). No periaortic fluid. The inferior vena cava is severel y attenuated throughout its course. Intraluminal calcification within the right common femoral vein a s seen on the prior most compatible with chronic thrombus. Abdominal wall: Prior ventral hernia repair. Small bilateral fat-containing inguinal hernias. Bones: Multilevel spondylosis. No acute fracture. IMPRESSION: 1. Colonic diverticulosis without radiologic evidence for acute diverticulitis. 2. A 4.4 cm abdominal aortic aneurysm (previously 3.3 cm). Recommend follow-up every 12 months and vascular consultation. Reference: J Am Jose Radiol 2013;10:789-794. 3. Other findings as above. Electronically signed by: Giovani Soliz MD 08/19/2020 3:24 AM CDT Due to temporary technical issues with the PACS/Fluency reporting system, reports are being signed by the in house radiologists without review as a courtesy to insure prompt reporting. The interpreting radiologist is fully responsible for the content of the report.
== END 2020-08-19 04:30 | disposition home or self-care (01) ==
LOC: ER 01:10
DX: K57.33 Diverticulitis of large intestine without perforation or abscess with bleeding (principal); I10 Essential (primary) hypertension; Z86.73 Personal history of transient ischemic attack (TIA), and cerebral infarction without residual deficits
CPT/HCPCS: 93005; 85025; 80048; 36415; 86900; 86850; 85610; 86901; 80076; 83605; 83690; 74177; 99284; Q9967